=== PATIENT | female | born 1935 | race Caucasian/White ===

== ENCOUNTER 2023-06-02 00:20 | Inpatient (IN) | payer MEDICARE, BC, SELFPAY ==
[2023-06-02] VITALS (10 sets, daily range): BP systolic 112–131; BP diastolic 53–68; PULSE 61–76; RESP 14–19; TEMP 36.3–37.1; O2SAT 91–98; BMI 16.5; BMI 16.4
--- NOTE | ~2023-06-02 | XR_ITS ---
EXAMINATION: XR CHEST CLINICAL INFORMATION: Covid positive COMPARISON: None available. TECHNIQUE: Frontal view of the chest was obtained. FINDINGS: Left-sided pacemaker lead tips overlie the right atrium and right ventricle. The lungs are hyperinflated suggesting underlying COPD. No definite focal consolidation is seen, though evaluation in some regions is limited by overlying soft tissue shadow, including calcification of a presumed left breast implant. No evidence of pneumothorax, pleural effusion, or pulmonary edema. Cardiac size is within normal limits. Calcification is present at the aortic arch. No acute osseous findings are seen. XR/XR chest 1V IMPRESSION: Hyperinflated lungs suggesting COPD. No definite focal consolidation.
--- NOTE | 2023-06-02 00:24 | ECG_ITS ---
Test Reason : WEAKNESS Blood Pressure : / mmHG Vent. Rate : 064 BPM Atrial Rate : 064 BPM P-R Int : 178 ms QRS Dur : 152 ms QT Int : 458 ms P-R-T Axes : 091 -76 094 degrees QTc Int : 472 ms AV dual-paced rhythm Abnormal ECG No previous ECGs available Referred By: Rama Garcia Electronically Signed By:BG QUINTERO
--- NOTE | 2023-06-02 00:45 | ED_ITS ---
HPI - Weakness General Chief complaint: Weakness Stated complaint: Covid +/ weakness Time Seen by Provider: 06/02/23 00:23 Source: patient and EMS Mode of arrival: EMS History of Present Illness HPI Narrative: 88-year-old female is brought in by EMS for increasing weakness and shortness of breath after positive COVID exposure, development of symptoms approximately 3 days ago and tested positive on a home COVID test on . Patient does have a history of COPD but is not a current smoker, she also has breast CA and is on chronic anticoagulation (Xarelto 15 mg). Related Data Allergies Allergy/AdvReac Type Severity Reaction Status Date / Time Unable to Assess Allergy Verified 06/02/23 00:23 Review of Systems 2 Review of Systems: Pertinent positives and negatives as stated in HPI [facility] Past Medical History Source: nursing notes reviewed Social History Social History Advance Directives: No Advance Directives Information Provided: No Physical Exam 2 Vital Signs: Vital Signs: Last Vital Signs Temp 98.6 F 06/02/23 00:32 Pulse 76 06/02/23 01:31 Resp 14 06/02/23 01:31 BP 122/56 L 06/02/23 00:32 Pulse Ox 91 L 06/02/23 00:32 O2 Del Method Room Air 06/02/23 00:32 BMI result Body Mass Index 16.5 VITAL SIGNS: Reviewed. GENERAL: Cachectic, in no acute distress. HEAD: Normocephalic/atraumatic EYES: PERRLA, EOMI EARS: Ext canals without abnormality NOSE: Nares patent bilateral OROPHARYNX: no oral lesions noted, posterior pharynx clear NECK: Supple, no adenopathy LUNGS: Tachypnea, coarse rhonchi but otherwise no rales. SpO2<91> 2 L nasal cannula CARDIOVASCULAR: Regular rate and rhythm without noted murmurs, no JVD or lower extremity edema. ABDOMEN: Soft, non-tender, non-distended with bowel sounds. MUSCULOSKELETAL: No tenderness, deformities, or effusions noted on gross inspection. EXTREMITIES: No cyanosis, clubbing or edema. SKIN: Inspection of the skin reveals no rashes NEUROLOGIC: Alert and oriented x 4. Strength and sensation to light touch were grossly intact x 4. Medications Administered Discontinued Medications Generic Name Dose Route Start Last Admin Trade Name Freq PRN Reason Stop Dose Admin Albuterol Sulfate 2 puff 06/02/23 01:16 06/02/23 01:30 Albuterol Sulfate 90 Mcg 8 Gm Inhaler INHALE 06/02/23 01:17 2 puff ONCE ONE Administration Methylprednisolone Sodium Succinate 125 mg 06/02/23 00:45 06/02/23 01:14 Methylprednisolone Sod Succ 125 Mg/2 Ml Vial IVPUSH 06/02/23 00:46 125 mg ONCE ONE Administration Rivaroxaban 15 mg 06/02/23 00:46 06/02/23 01:48 Rivaroxaban 15 Mg Tablet PO 06/02/23 00:47 15 mg ONCE ONE Administration Medical Decision Making Medical Decision Making [facility] Narrative: 0045: 88-year-old female with history and clinical presentation, DDX: Viral syndrome, viral pneumonia, COVID-19 positive, COPD exacerbation. I reviewed all investigations and hematologic indices are negative for leukocytosis low there is a mild left shift and mildly elevated temperature for which patient had taken Tylenol at home prior to arrival, however this does not seem to be bacterial in nature at all, there was no identified infiltrate on chest x-ray and patient's serology is positive for COVID-19. Coagulation studies demonstrated PT of 33.7 and INR of 2.8 reflective of patient's use of Xarelto. VBG does not demonstrate any respiratory acidosis and no hypercapnia at this time. Chemistry studies a grossly within normal limits without electrolyte or liver enzyme abnormalities, there is no LYNDA. It is noted that the high sensitivity troponin is detectable and demonstrates mild elevation although there is no comparison and suspect that this is due to underlying illness. I will repeat the troponin level, patient has dual paced rhythm but no obvious evidence of ST elevation and no complaints chest pain. 1346: I discussed case with the hospitalist who accepts admission. My interpretation is patient has acute viral syndrome with respiratory failure likely contributing to underlying COPD, no evidence to suggest the need for antibiotics at this time. Patient received bronchodilators as well as steroids. Differential Diagnosis Differential Diagnoses: The differential diagnosis associated with the presentation includes Please see the discussion above Admission/Observation Consideration of admission/observation: Escalation of care including admission/observation considered Please see the discussion above Consult Healthcare Provider Management of the patient was discussed with: Hospitalist Please see the discussion above Lab Data [facility] Lab Attestation statement: I reviewed the patient's lab results. Please see the discussion above 06/02/23 00:48 06/02/23 00:48 Labs: Lab Results 06/02/23 06/02/23 Range/Units 00:48 00:57 WBC 8.3 (4.8-10.8) X10*3/uL RBC 4.36 (4.20-5.50) X10*6/uL Hgb 13.9 (12.0-16.0) g/dl Hct 41.4 (37.0-47.0) % MCV 95.0 (80.0-98.0) fL MCH 31.9 (27.0-33.0) pg MCHC 33.6 (31.0-35.0) g/dl RDW 13.9 (11.0-16.0) % Plt Count 142 L (160-400) X10*3/uL MPV 9.5 (9.4-12.3) fL Immature Gran % (Auto) 0.2 (0.0-0.4) % Neut % (Auto) 88.8 H (45-73) % Lymph % (Auto) 4.0 L (20-40) % [place] % (Auto) 6.6 (2-11) % Eos % (Auto) 0.0 (0-4) % Baso % (Auto) 0.4 (0-2) % Lymph # (Auto) 0.3 L (1.2-4.9) X10*3/uL [place] # (Auto) 0.6 (0.1-1.2) X10*3/uL Eos # (Auto) 0.0 (0.0-0.4) X10*3/uL Baso # (Auto) 0.0 (0.0-0.2) X10*3/uL Abs Immat Gran (auto) 0.02 (0.00-0.03) X10*3/uL Absolute Neuts (auto) 7.4 (2.0-8.3) x10*3/uL Absolute Nucleated RBC 0.000 (0.0-0.012) X10*3/uL Nucleated RBC % (auto) 0.0 (0.0-0.2) /100WBC PT 33.7 H (11.1-13.3) SEC INR 2.8 H (0.9-1.1) VBG pH 7.40 (7.32-7.43) VBG pCO2 47 mmHg VBG pO2 43 mmHg VBG HCO3 29 H (22-26) mmol/L VBG O2 Saturation 70.0 % VBG Base Excess 3.8 mmol/L Sodium 138 (135-145) mmol/L Potassium 3.9 (3.3-5.1) mmol/L Chloride 100 (96-108) mmol/L Carbon Dioxide 23 (22-29) mmol/L Anion Gap 19 (12-20) BUN 15 (9-16) mg/dL Creatinine 0.74 (0.5-1.4) mg/dL Estim Creat Clear Calc 37.9 Estimated GFR > 60 Random Glucose 108 (60-115) mg/dL Lactic Acid 1.1 (0.5-2.0) mmol/L Calcium 9.5 (8.4-10.2) mg/dL Total Bilirubin 0.5 (0.0-1.0) mg/dL AST 30 (5-31) U/L ALT 15 (0-31) U/L Alkaline Phosphatase 71 (39-117) U/L Troponin I High Sens 20.3 H (<3.5-17.0) ng/L Total Protein 6.9 (6.5-8.0) g/dL Albumin 4.2 (3.5-5.0) g/dL COVID-19 (BRANDO) Positive A (Negative) COVID-19 Clin Com See Note Influenza Type A (KM) Negative (Negative) Influenza Type B (KM) Negative (Negative) Influenza A & B Note See Note Independent Interpretation I performed an independent interpretation of an: EKG Interpretation: AV dual paced rhythm, HR-64, no STEMI, OR/QTC within normal limits. Radiology Impression Discussion of test interpretation with radiology: I have reviewed the radiologist's reading. Radiologist Impression: Please see the discussion above Chronic Conditions Patient?s care impacted by: Cancer COPD Critical Care Time Critical Care Time Critical Care Time: Yes Total Critical Care Time: 30 Attestation: I personally attest to this time spent taking care of the patient. Discharge Plan Discharge Clinical Impression: Acute respiratory failure, Viral syndrome, Pneumonia due to COVID-19 virus, Hypoxemia, COPD (chronic obstructive pulmonary disease) Patient Disposition: Admitted As Inpatient
[2023-06-02 00:57] LABS: MANUAL DIFF FLAG NO
[2023-06-02 00:59] LABS: Basophils Percent Auto 0.4 % (0-2); Hematocrit 41.4 % (37.0-47.0); Hemoglobin 13.9 g/dl (12.0-16.0); Imm Gran Abs Auto 0.02 X10*3/uL (0.00-0.03); Imm Gran Pct Auto 0.2 % (0.0-0.4); Lymphocytes Absolute Auto 0.3 X10*3/uL (1.2-4.9); Mean Corpuscular HGB Conc 33.6 g/dl (31.0-35.0); Mean Corpuscular Hemoglobin 31.9 pg (27.0-33.0); Mean Platelet Volume 9.5 fL (9.4-12.3); Monocytes Absolute Auto 0.6 X10*3/uL (0.1-1.2); Monocytes Percent Auto 6.6 % (2-11); Neutrophils Absolute Auto 7.4 x10*3/uL (2.0-8.3); Neutrophils Percent Auto 88.8 % (45-73); Platelet Count 142 X10*3/uL (160-400); Red Blood Count 4.36 X10*6/uL (4.20-5.50); Red Cell Distribution Width 13.9 % (11.0-16.0); White Blood Count 8.3 X10*3/uL (4.8-10.8)
[2023-06-02 01:04] LABS: VBG Base Excess 3.8 mmol/L; VBG HCO3 29 mmol/L (22-26); VBG pCO2 47 mmHg; VBG pO2 43 mmHg
[2023-06-02 01:10] LABS: INTERNATIONAL NORM RATIO 2.8 (0.9-1.1); Prothrombin Time 33.7 SEC (11.1-13.3)
[2023-06-02 01:13] LABS: Lactic Acid 1.1 mmol/L (0.5-2.0)
[2023-06-02] MEDS: methylPREDNISolone Sod Succ 125 MG/2 ML VIAL IVPUSH (01:14)
[2023-06-02 01:18] LABS: Alanine Aminotransferase 15 U/L (0-31); Albumin Level 4.2 g/dL (3.5-5.0); Alkaline Phosphatase 71 U/L (39-117); Anion Gap 19 (12-20); Aspartate Amino Transferase 30 U/L (5-31); Bilirubin Total 0.5 mg/dL (0.0-1.0); Blood Urea Nitrogen 15 mg/dL (9-16); Calcium 9.5 mg/dL (8.4-10.2); Carbon Dioxide 23 mmol/L (22-29); Chloride 100 mmol/L (96-108); Creatinine Clr Calc Pharmacy 37.9; Estimated Glomerular Filt Rate > 60; Glucose Random 108 mg/dL (60-115); Potassium 3.9 mmol/L (3.3-5.1); Sodium 138 mmol/L (135-145); Total Protein 6.9 g/dL (6.5-8.0)
[2023-06-02 01:19] LABS: Venous Blood Gas Refer to POC result
--- OUTSIDE RECORDS SUMMARY | 2023-06-02 01:20 | XMS_ITS | Continuity of Care Document ---
Author Name Unknown Organization [facility] Address [address] [place] [address]- Care Team Providers Care Life Coach Name Role Phone Jayesh HUGGINS, Dinh Jamil Primary Care Physician Encounter [facility] [place] Date(s): 05/29/22 - 06/28/22 [facility] [address] [place] [address]- [place] Allergies, Adverse Reactions, Alerts Substance Reaction Severity Status codeine Active penicillin Active Immunizations Given and Recorded Vaccine Date Status Refusal Reason SARS-CoV-2 (COVID-19) mRNA BNT-162b2 vac 06/01/21 Recorded SARS-CoV-2 (COVID-19) mRNA BNT-162b2 vac 11/08/20 Given SARS-CoV-2 (COVID-19) mRNA BNT-162b2 vac 10/18/20 Given influenza virus vaccine, inactivated 05/18/21 [place] rded influenza virus vaccine, inactivated 05/27/19 [place] rded influenza virus vaccine, inactivated 06/18/18 [place] rded influenza virus vaccine, inactivated 05/08/17 [place] rded Zoster Vaccine Live 05/11/05 Recorded pneumococcal 13-valent vaccine 05/11/01 Recorded Medications anastrozole 1 mg oral tablet 1 tablet = 1 mg, By Mouth, Daily, # 30 tablet, 0 Refills, Maintenance, 08/08/21 20:21:00 EST, Tablet, Partial fill upon patient request if the prescription is for a schedule II opioid drug. Start Date: 08/08/21 Status: Ordered atorvastatin 10 mg oral tablet 1 tablet = 10 mg, By Mouth, Daily, # 30 tablet, 0 Refills, Maintenance, 08/08/21 20:13:00 EST, Partial fill upon patient request if the prescription is for a schedule II opioid drug. Start Date: 08/08/21 Status: Ordered cefadroxil 500 mg oral capsule 1 capsule = 500 mg, By Mouth, Every 12 hours, # 28 capsule, 0 Refills, Maintenance, 08/10/21 11:03:00 EST, Capsule, Partial fill upon patient request if the prescription is for a schedule II opioid drug. Start Date: 08/10/21 Stop Date: 08/24/21 Status: Ordered levothyroxine 0.1 mg oral tablet 1 tablet = 100 mcg, By Mouth, Daily, # 30 tablet, 0 Refills, Maintenance, 08/08/21 20:14:00 EST, Tablet, Partial fill upon patient request if the prescription is for a schedule II opioid drug. Start Date: 08/08/21 Status: Ordered metoprolol 25 mg oral tablet 25 mg, 1, tablet, By Mouth, 2 times a day, Refills 0, Maintenance, 08/08/21 20:14:00 EST, Partial fill upon patient request if the prescription is for a schedule II opioid drug. Start Date: 08/08/21 Status: Ordered Xarelto 15 mg oral tablet 1 tablet = 15 mg, By Mouth, Daily in PM, # 30 tablet, 0 Refills, Maintenance, 08/08/21 20:14:00 EST, Tablet, Partial fill upon patient request if the prescription is for a schedule II opioid drug. Start Date: 08/08/21 Status: Ordered Problem List Condition Confirmation Course Effective Dates Status Health St at Informant Underweight Confirmed Active Patient Care team information Personnel Name: Jayesh HUGGINS , Dinh Jamil Address: Address: [address] [place] [address]-
--- OUTSIDE RECORDS SUMMARY | 2023-06-02 01:20 | XMS_ITS | Continuity of Care Document ---
Author Name Unknown Organization [facility] Address [address] [place] [phone]- Care Team Providers Care It Infrastructure Engineer Name Role Phone Jayesh HUGGINS, Dinh Jamil Primary Care Physician [phone] [place] [facility] [place] Date(s): 11/22/21 - 12/22/21 [facility] [address] [place] [address]- [place] Allergies, Adverse Reactions, Alerts Substance Reaction [...] Date: 08/08/21 Status: Ordered Problem List Condition Effective Dates Status Health Status Inform ant Underweight(Confirmed) Active
--- OUTSIDE RECORDS SUMMARY | 2023-06-02 01:20 | XMS_ITS | Continuity of Care Document ---
Author Name Unknown Organization [facility] Address [address] [place] [address]- Care Team Providers Care Set Painter Name Role Phone Jayesh HUGGINS, Dinh Jamil Primary Care Physician Encounter [facility] [place] ACCT R [id number] Date(s): 08/11/21 - 09/24/21 [facility] [address] [place] [address]- Attending Physician: John Hernandez Admitting Physician: John Hernandez Allergies, Adverse Reactions, Alerts Substance Reaction Severity [...]
--- OUTSIDE RECORDS SUMMARY | 2023-06-02 01:20 | XMS_ITS | Continuity of Care Document ---
Author Name Unknown Organization [facility] Address [address] [place] [address]- Care Team Providers Care General Production Manager Name Role Phone Jayesh HUGGINS, Dinh Jamil Primary Care Physician [phone] [place] [facility] [place] - 10/15/22 [facility] [address] [place] [address]- [place] Allergies, Adverse Reactions, Alerts Substance Reaction [...] Confirmation Course Effective Dates Status Health St atus Informant Underweight Confirmed Active Patient Care team information Care Team Personnel Name: Jayesh HUGGINS , Dinh Jamil Position: S Outreach Member Role: PCP Address: Address: [address] [place] [address]- Care Team Related Persons Name: AGAPITO LOPEZ
--- OUTSIDE RECORDS SUMMARY | 2023-06-02 01:20 | XMS_ITS | Continuity of Care Document ---
Author Name Unknown Organization [facility] Address [address] [place] [address]- Care Team Providers Care Run Lead Name Role Phone Jayesh HUGGINS, Dinh Jamil Primary Care Physician Encounter [facility] [place] Date(s): 08/08/21 - 08/10/[address] [address]- Discharge Disposition: A-D/C Home Attending Physician: Prabhjot Morales DO Admitting Physician: Lissa Link DO Referring Physician: Not on Staff, Referring MD Allergies, Adverse Reactions, Alerts Substance Reaction Severity [...] Recorded pneumococcal 13-valent vaccine 05/11/01 Recorded Medications Acetaminophen Tablet 650 mg, Tablet, By Mouth, Every 4 hours, PRN for Pain , Mild, Temperature Greater than 100.5, Routine, 08/08/21 20:45:00 EST Start Date: 08/08/21 Stop Date: 08/10/21 Status: Discontinued anastrozole 1 mg oral tablet 1 tablet = 1 mg, By Mouth, Daily, # 30 tablet, 0 Refills, Maintenance, 12/06/21 20:21:00 EST, Tablet, Partial fill upon patient [...] 08/08/21 Status: Ordered metoprolol 25 mg oral tablet, extended release 25 mg, XL Tablet, By Mouth, 08/10/21 9:00:00 EST Start Date: 08/10/21 Stop Date: 08/10/21 Status: Completed Xarelto 15 mg oral tablet 1 tablet = 15 mg, By Mouth, Daily in PM, # 30 tablet, 0 Refills, Maintenance, 08/08/21 20:14:00 EST, Tablet, Partial fill upon patient request if the prescription is for a schedule II opioid drug. Start Date: 08/08/21 Status: Ordered Problem List Condition Effective Dates Status Health Status Inform ant Underweight(Confirmed) Active Results Radiology Reports * Exam Date Time Procedure Performing Provider Status 08/09/21 10:53 AM Chest Portable Terrence Ch (Verified) Notes: (Chest Portable) Reason For Exam: ppm;Line Placement RESULT: Chest Portable Chest Portable INDICATION: Line Placement; ppm. COMPARISON: None. FINDINGS: LINES AND TUBES: Dual-lead left subclavian pacer/AICD wires are intact. Mild tortuous course of the ventricular lead. LUNGS AND PLEURA: Lungs are partially obscured by breast implants. Large lung volumes with flattening of the diaphragms suggestive of air trapping/COPD changes. No focal opacity within limits of the study. No pleural effusion. No pneumothorax. HEART, MEDIASTINUM AND ADAMS: Heart is normal in size. Aortic calcifications. BONES AND SOFT TISSUES: Degenerative changes of the upper lumbar spine. Bilateral breast implants with capsular calcifications most pronounced on on the left. IMPRESSION: Status post dual-lead pacemaker. Mild tortuous course of the ventricular lead. No pneumothorax or pleural effusion. I have personally reviewed the images and I agree with this report. WSN: [id number] Ordering Physician: Robert Lou Dictated By: Paola Schwartz MD Dictated Date/Time: 08/09/21 11:49 a Reviewed By: Ellis Borja MD Signed By: Ellis Borja MD Signed Date/Time: 08/09/21 11:54 am Transcribed By: RUTHANN Transcribed Date/Time: 08/09/21 11:46 am Vital Signs Most recent to oldest [Reference Range]: 1 2 3 Height 165 cm (08/10/21 8:28 AM) 165 cm (08/09/21 6:47 PM) 165 cm (08/09/21 3:19 PM) Weight 41.5 kg (08/10/21 4:20 AM) 46.3 kg (08/09/21 3:24 AM) 46.5 kg (08/08/21 7:44 PM) Oxygen Saturation [94-100 %] 93 % *L* (08/10/21 8:28 AM) 97 % (08/10/21 2:00 AM) 93 % *L* (08/09/21 8:00 PM) Pulse Rate [55-90 bpm] 60 bpm (08/10/21 8:28 AM) 60 bpm (08/10/21 8:19 AM) 66 bpm (08/10/21 2:00 AM) Body Mass Index [18.5-24.99] 17.01 *L* (08/09/21 3:24 AM) 17.08 *L* (08/08/21 7:44 PM) Blood Pressure [90-138/55-84 mm Hg] 126/73mm Hg (08/10/21 8:28 AM) 126/73mm Hg (08/10/21 8:19 AM) 127/69mm Hg (08/10/21 2:00 AM) Respiratory Rate [16-30 br/min] 17 br/min (08/10/21 8:28 AM) 20 br/min (08/10/21 2:00 AM) 18 br/min (08/09/21 10:26 PM) Temperature [96.8-100.4 DegF] 97.5 DegF (08/10/21 8:28 AM) 97.5 DegF (08/10/21 2:00 AM) 98.1 DegF (08/09/21 8:00 PM) Mode of Delivery (Oxygen) Room air (08/10/21 8:28 AM) Room air (08/10/21 2:00 AM) Room air (08/09/21 8:00 PM) Blood pressure sites Arm, right (08/10/21 8:28 AM) Arm, right (08/10/21 2:00 AM) Arm, right (08/09/21 8:00 PM) Temperature Route Oral (08/10/21 8:28 AM) Oral (08/10/21 2:00 AM) Oral (08/09/21 8:00 PM) Dry Weight 46.5 kg (08/08/21 7:44 PM) Weight Obtained Via Bed scale (08/10/21 4:20 AM) Bed scale (08/09/21 3:24 AM)
--- OUTSIDE RECORDS SUMMARY | 2023-06-02 01:20 | XMS_ITS | Continuity of Care Document ---
Author Name Unknown Organization [facility] Address [address] [place] [address]- Care Team Providers Care Bus Aide Name Role Phone Jayesh HUGGINS, Dinh Jamil Primary Care Physician [phone] Encounter [facility] [place] Date(s): 11/10/21 - 12/10/21 [facility] [address] [place] [address]- Attending Physician: Cesar Watson Admitting Physician: Cesar Watson Referring Physician: AdmtrCesar Allergies, Adverse Reactions, Alerts Substance Reaction Severity [...]
--- OUTSIDE RECORDS SUMMARY | 2023-06-02 01:20 | XMS_ITS | Continuity of Care Document ---
Author Name Unknown Organization [facility] Address [address] [place] [address]- Care Team Providers Care Prior Authorization Technician Name Role Phone Jayesh HUGGINS, Dinh Jamil Primary Care Physician [place] [facility] [place] Date(s): 12/15/22 - 01/14/23 [facility] [address] [place] [address]- [place] Allergies, Adverse Reactions, Alerts Substance Reaction [...] S Outreach Member Role: PCP Address: Address: [address] [place] [address]- Care Team Related Persons Name: AGAPITO LOPEZ
--- OUTSIDE RECORDS SUMMARY | 2023-06-02 01:20 | XMS_ITS | Continuity of Care Document ---
Author Name Unknown Organization [facility] Address [address] [place] [address]- Care Team Providers Care Optomechanical Engineer Name Role Phone Jayesh HUGGINS, Dinh Jamil Primary Care Physician En[place] [facility] [place] Date(s): 09/15/22 - 10/15/22 [facility] [address] [place] [address]- Attending Physician: Cesar Watson Admitting Physician: Admtr, Ar8 Referring Physician: Admtr, Ar8 Allergies, Adverse Reactions, Alerts Substance Reaction Severity [...] Care team information Care Team Personnel Name: Dinh Mcconnell MD Position: S Outreach Member Role: PCP Address: Address: [address] [place] [address]- Care Team Related Persons Name: AGAPITO LOPEZ
--- OUTSIDE RECORDS SUMMARY | 2023-06-02 01:20 | XMS_ITS | Continuity of Care Document ---
Author Name Unknown Organization [facility] Address [address] [place] [address]- Care Team Providers Care Ict Business Development Manager Name Role Phone Jayesh HUGGINS, Dinh Jamil Primary Care Physician [phone] [place] [facility] [place] [id number] Date(s): 05/04/22 - 06/03/22 [facility] [address] [place] [address]- Attending Physician: Cesar Watson Admitting Physician: Cesar Watson Referring Physician: Admtr, Ar8 Allergies, Adverse Reactions, [...] Jayesh HUGGINS , Dinh Jamil Address: Address: [address] [place] [address]
--- OUTSIDE RECORDS SUMMARY | 2023-06-02 01:20 | XMS_ITS | Continuity of Care Document ---
Author Name Unknown Organization [facility] Address [address] [place] [address]- Care Team Providers Care Seed Laboratory Assistant Name Role Phone Dinh Mcconnell MD Primary Care Physician Encounter [facility] [place] Date(s): 09/01/21 - 12/08/21 [facility] [address] [place] [address]- Attending Physician: Zeb Burnett MD Admitting Physician: Zeb Burnett MD Referring Physician: Dinh Mcconnell MD Allergies, Adverse Reactions, Alerts Substance Reaction [...]
--- OUTSIDE RECORDS SUMMARY | 2023-06-02 01:20 | XMS_ITS | Continuity of Care Document ---
Author Name Unknown Organization [facility] Address [address] [place], [place] [address]- Care Team Providers Care Post Tronic Machine Operator Name Role Phone Jayesh HUGGINS, Dinh Jamil Primary Care Physician Encounter [facility] [place] ACCT R [id number] Date(s): 12/23/22 - 04/22/23 [facility] [address] [place] [address]- Attending Physician: Zeb Burnett MD Admitting Physician: [...] S Outreach Member Role: PCP Address: Address: [address] [place] [address]- Care Team Related Persons Name: AGAPITO LOPEZ
--- OUTSIDE RECORDS SUMMARY | 2023-06-02 01:20 | XMS_ITS | Continuity of Care Document ---
Author Name Unknown Organization [facility] Address [address] [place] [address]- Care Team Providers Care Branch Service Representative Name Role Phone Jayesh HUGGINS, Dinh Jamil Primary Care Physician Encounter [facility] [place] ACCT R [id number] Date(s): 03/16/22 - 07/02/22 [facility] [address] [place] [address]- Attending Physician: Zeb Burnett MD Admitting Physician: [...] Jayesh HUGGINS , Dinh Jamil Address: Address: [address] [place] [address]
--- OUTSIDE RECORDS SUMMARY | 2023-06-02 01:20 | XMS_ITS | Continuity of Care Document ---
Author Name Unknown Organization [facility] Address [address] [place] [address]- Care Team Providers Care Animation Camera Operator Name Role Phone Jayesh HUGGINS, Dinh Jamil Primary Care Physician [place] [facility] [place] - 10/06/21 [facility] [address] [place] [address]- [place] Allergies, Adverse Reactions, Alerts Substance Reaction [...]
--- OUTSIDE RECORDS SUMMARY | 2023-06-02 01:20 | XMS_ITS | Continuity of Care Document ---
Author Name Unknown Organization [facility] Address [address] [place] [address]- Care Team Providers Care Cigar Making Machine Operator Name Role Phone Jayesh HUGGINS, Dinh Jamil Primary Care Physician [place] [facility] [place]s): 03/21/22 - 04/20/22 [facility] [address] [place] [address]- [place] Allergies, Adverse Reactions, Alerts Substance Reaction [...]
[2023-06-02 01:23] LABS: COVID-19 Test Positive (Negative); IDNOW Serial# 08D9AD1C; IDNOW Serial# BCCEAD1C; Influenza A Negative (Negative); Influenza B2 Negative (Negative); Troponin-I High Sensitivity 20.3 ng/L (<3.5-17.0)
[2023-06-02] MEDS: Albuterol Sulfate 90 MCG 8 GM INHALER 2 PUFF INHALE (01:30)
[2023-06-02] MEDS: Rivaroxaban 15 MG TABLET PO (01:48)
[2023-06-02 02:30] LABS: Troponin-I High Sensitivity 22.1 ng/L (<3.5-17.0)
[2023-06-02 03:31] LABS: Appearance Urine Clear; Color Urine Yellow; Glucose Urine UA Negative (Negative); Leukocyte Esterase Urine Trace (Negative); Nitrite Urine Positive (Negative); PH 5.5 (5.0-9.0); Specific Gravity - Urine 1.015 (1.005-1.025); UMIC TRIGGER UACC YES; Urine Blood Trace (Negative); Urine Ketones Trace mg/dL (Negative); Urine Protein Trace mg/dL (Neg-Trace)
[2023-06-02 03:47] LABS: Bacteria Urine 4+ (None Seen); Calcium Oxalate Crystals Urine Present; Hyaline Casts Urine 0-2 /LPF (0-2); UACC Culture Trigger YES; WBC Urine 0-5 /HPF (0-5)
--- NOTE | 2023-06-02 06:30 | P.HPHOSP_ITS ---
History of Present Illness Date of Service: 06/02/23 Chief Complaint: Shortness of breath This an 88-year-old female past medical history of COPD the hospital with complaints of shortness of breath. Patient reports that she tested positive for COVID about 3 days ago, worsening symptoms since. She has increased cough sputum production, and dyspnea. Patient reports no fever, chills, no abdominal pain nausea vomiting, no diarrhea constipation, no chest pain. No palpitations. No headache or change in vision. Patient was found to be hypoxic per EMS although unclear how low, with placed on 2 L of oxygen currently satting 94%. Labs reviewed unremarkable COVID-19 positive Chest x-ray shows no focal consolidation Review of Systems 2 Review of Systems: Yes all other systems are reviewed and are negative [facility] Medical History History of COPD Surgical History (Updated 06/02/23 @ 06:33 by Naima Walker MD) No pertinent past surgical history Social History Household Members: Family Housing: House Patient Tobacco Use Status: Never used Tobacco Smoked in Last 30 Days: No Use of substances other than those prescribed or required for medical reasons: No Have you been hit, kicked, punched, or otherwise hurt by someone within the past year? If so, by whom?: No Do you feel safe in your current relationship?: Yes Is there a partner from a previous relationship who is making you feel unsafe now?: No Are you made to feel afraid or neglected: No Advance Directives: No Advance Directives Information Provided: No Do you have thoughts of harming others: None Do you have a plan to hurt others: No Plan Recently lost weight without trying: Yes How much weight loss: 2-13 pounds Patient : No Meds Allergies Allergy/AdvReac Type Severity Reaction Status Date / Time Unable to Assess Allergy Verified 06/02/23 00:23 Active Medications: Current Medications Acetaminophen (Acetaminophen 325 Mg Tablet) 650 mg PO Q6H PRN PRN Reason: Pain, Mild (Pain Scale 1-3) Albuterol/Ipratropium (Albuterol/Iprat 2.5/0.5mg 3 Ml Ampul.Neb) 3 ml INHALE RQ4H PRN PRN Reason: Shortness of Breath/Wheezing Albuterol/Ipratropium (Albuterol/Iprat 2.5/0.5mg 3 Ml Ampul.Neb) 3 ml INHALE RQ4H WHILE AWAKE ON LICENSE OF [facility] Dexamethasone Sodium Phosphate (Dexamethasone Sod Phosphate 4 Mg/Ml Vial) 6 mg IVPUSH DAILY ON LICENSE OF [facility] Enoxaparin Sodium (Enoxaparin Sodium 40 Mg/0.4 Ml Syringe) 40 mg SUBCUT Q24H UBALDO Ondansetron HCl (Ondansetron Hcl 4 Mg/2 Ml Vial) 4 mg IVPUSH Q8H PRN PRN Reason: Nausea and Vomiting Sodium Chloride (0.9 % Sodium Chloride Flush 3 Ml Syringe) 3 ml IVFLUSH QSHIFT ON LICENSE OF [facility] Physical Exam 2 Vital Signs and Narrative: Vital Signs: Last Vital Signs Temp 98.7 F 06/02/23 04:00 Pulse 61 06/02/23 04:00 Resp 16 06/02/23 04:00 BP 120/60 06/02/23 04:00 Pulse Ox 97 06/02/23 04:00 O2 Del Method Room Air 06/02/23 04:00 O2 Flow Rate 2 06/02/23 02:04 BMI result Body Mass Index 16.4 Const: General: cooperative and no acute distress O rientation/consciousness: patient oriented x3 Eyes: General: appearance normal, both eyes and all related structures Resp: Other: Significant bilateral wheezing and decreased breath sounds Effort & Inspection: normal respiratory effort Cardio: Rate: regular rate Rhythm: regular rhythm GI: Palpation (GI): Soft to palpation Auscultation: normal bowel sounds Skin: General skin exam: no rashes or lesions noted Neuro: General: patient oriented x3 Cognition (Neuro): normal cognition Extrem: General: Yes normal to inspection and Yes no pedal edema Results Labs 06/02/23 00:48 06/02/23 00:48 Labs: Laboratory Results - last 24 hr 06/02/23 06/02/23 06/02/23 00:48 00:52 00:57 MCV 95.0 MCH 31.9 MCHC 33.6 RDW 13.9 Plt Count 142 L MPV 9.5 Immature Gran % (Auto) 0.2 Neut % (Auto) 88.8 H Lymph % (Auto) 4.0 L [place] % (Auto) 6.6 Eos % (Auto) 0.0 Baso % (Auto) 0.4 Lymph # (Auto) 0.3 L [place] # (Auto) 0.6 Eos # (Auto) 0.0 Baso # (Auto) 0.0 Abs Immat Gran (auto) 0.02 Absolute Neuts (auto) 7.4 Absolute Nucleated RBC 0.000 Nucleated RBC % (auto) 0.0 PT 33.7 H INR 2.8 H VBG pH 7.40 VBG pCO2 47 VBG pO2 43 VBG HCO3 29 H VBG O2 Saturation 70.0 VBG Base Excess 3.8 Anion Gap 19 Estim Creat Clear Calc 37.9 Estimated GFR > 60 Random Glucose 108 Lactic Acid 1.1 Calcium 9.5 Total Bilirubin 0.5 AST 30 ALT 15 Alkaline Phosphatase 71 Total Protein 6.9 Albumin 4.2 Urine Color Yellow Urine Appearance Clear Urine pH 5.5 Ur Specific [place] 1.015 Urine Protein Trace Urine Glucose (UA) Negative Urine Ketones Trace Urine Blood Trace H Urine Nitrite Positive H Ur Leukocyte Esterase Trace H Urine RBC 3-5 H Urine WBC 0-5 Ur Squamous Epith Cells 3-5 Calcium Oxalate Crystal Present Urine Bacteria 4+ Hyaline Casts 0-2 COVID-19 (BRANDO) Positive A COVID-19 Clin Com See Note Influenza Type A (KM) Negative Influenza Type B (KM) Negative Influenza A & B Note See Note Imaging Radiologist's Impressions: Impressions Chest X-Ray 06/02/23 01:30 IMPRESSION: Hyperinflated lungs suggesting COPD. No definite focal consolidation. Assessment and Plan (1) COVID-19: Status: Acute (2) Viral syndrome: Status: Acute (3) COPD with acute exacerbation: Status: Acute Plan This is an 88-year-old female past medical history of COPD comes into the hospital with complaints of shortness of breath after being tested positive for COVID 3 days prior to presentation # acute hypoxic respiratory failure - according to EMS patient was found to be hypoxic although unclear with the level. - patient currently on 2 L of oxygen satting mid 90s - continue O2 as required, wean off with a goal of 90 to 92% # acute COPD exacerbation - in the setting of COVID infection - will treat with steroids, DuoNeb p.r.n. as well as scheduled DVT prophylaxis: Lovenox Given patient's need for closer monitoring patient require minimum 2 nights inpatient hospital stay for further management monitoring Time Spent With Patient Time: Total time managing care of this patient today ____ minutes. Quality Stroke Does the patient have a stroke diagnosis?: No VTE Prior VTE?: No VTE Risk Level:: Medical - moderate - high VTE Device Contraindication: Treatment Not Indicated VTE Drug Contraindication: N/A - Med Ordered
[2023-06-02 06:44] LABS: Alanine Aminotransferase 14 U/L (0-31); Albumin Level 3.9 g/dL (3.5-5.0); Alkaline Phosphatase 63 U/L (39-117); Anion Gap 16 (12-20); Aspartate Amino Transferase 29 U/L (5-31); Bilirubin Total 0.4 mg/dL (0.0-1.0); Blood Urea Nitrogen 13 mg/dL (9-16); Calcium 8.9 mg/dL (8.4-10.2); Carbon Dioxide 22 mmol/L (22-29); Chloride 104 mmol/L (96-108); Creatinine Clr Calc Pharmacy 44.5; Estimated Glomerular Filt Rate > 60; Glucose Random 120 mg/dL (60-115); Potassium 4.2 mmol/L (3.3-5.1); Sodium 138 mmol/L (135-145); Total Protein 6.4 g/dL (6.5-8.0)
[2023-06-02] MEDS: Albuterol/Iprat 2.5/0.5MG 3 ML AMPUL.NEB INHALE (08:18)
--- NOTE | 2023-06-02 08:41 | P.PNIM_ITS ---
Subjective Subjective Date of Service: 06/02/23 Interval History: weakness, no sob Physical Exam 2 Vital Signs: Vital Signs: Last Vital Signs Temp 98.5 F 06/02/23 08:00 Pulse 64 06/02/23 08:20 Resp 18 06/02/23 08:20 BP 124/68 06/02/23 08:00 Pulse Ox 93 06/02/23 08:00 O2 Del Method Room Air 06/02/23 08:00 O2 Flow Rate 2 06/02/23 02:04 BMI result Body Mass Index 16.4 General: AO X 3, no acute distress Resp: diminished bilateral, no accessory muscles used CVS: S1,S2,RRR GI: soft, non tender, non distended Neuro: motor grossly intact, alert Psych: appropriate affect, appropriate insight Objective Data Active Medications Acetaminophen (Acetaminophen 325 Mg Tablet) 650 mg PO Q6H PRN PRN Reason: Pain, Mild (Pain Scale 1-3) Albuterol/Ipratropium (Albuterol/Iprat 2.5/0.5mg 3 Ml Ampul.Neb) 3 ml INHALE RQ4H PRN PRN Reason: Shortness of Breath/Wheezing Atorvastatin Calcium (Atorvastatin Calcium 10 Mg Tablet) 10 mg PO BEDTIME [facility] Levothyroxine Sodium (Levothyroxine Sodium 88 Mcg Tablet) 88 mcg PO DAILY@0600 [facility] Metoprolol Succinate (Metoprolol Succinate Er 25 Mg Tab.Er.24h) 25 mg PO DAILY [facility]; Protocol Ondansetron HCl (Ondansetron Hcl 4 Mg/2 Ml Vial) 4 mg IVPUSH Q8H PRN PRN Reason: Nausea and Vomiting Rivaroxaban (Rivaroxaban 15 Mg Tablet) 15 mg PO DAILY [facility] Sodium Chloride (0.9 % Sodium Chloride Flush 3 Ml Syringe) 3 ml IVFLUSH QSHIFT [facility] Labs 06/02/23 00:48 06/02/23 06:10 Labs: Laboratory Results - last 24 hr 06/02/23 06/02/23 06/02/23 00:48 00:52 00:57 MCV 95.0 MCH 31.9 MCHC 33.6 RDW 13.9 Plt Count 142 L MPV 9.5 Immature Gran % (Auto) 0.2 Neut % (Auto) 88.8 H Lymph % (Auto) 4.0 L [place] % (Auto) 6.6 Eos % (Auto) 0.0 Baso % (Auto) 0.4 Lymph # (Auto) 0.3 L [place] # (Auto) 0.6 Eos # (Auto) 0.0 Baso # (Auto) 0.0 Abs Immat Gran (auto) 0.02 Absolute Neuts (auto) 7.4 Absolute Nucleated RBC 0.000 Nucleated RBC % (auto) 0.0 Hold Purple Top PT 33.7 H INR 2.8 H VBG pH 7.40 VBG pCO2 47 VBG pO2 43 VBG HCO3 29 H VBG O2 Saturation 70.0 VBG Base Excess 3.8 Anion Gap 19 Estim Creat Clear Calc 37.9 Estimated GFR > 60 Random Glucose 108 Lactic Acid 1.1 Calcium 9.5 Total Bilirubin 0.5 AST 30 ALT 15 Alkaline Phosphatase 71 Total Protein 6.9 Albumin 4.2 Urine Color Yellow Urine Appearance Clear Urine pH 5.5 Ur Specific [place] 1.015 Urine Protein Trace Urine Glucose (UA) Negative Urine Ketones Trace Urine Blood Trace H Urine Nitrite Positive H Ur Leukocyte Esterase Trace H Urine RBC 3-5 H Urine WBC 0-5 Ur Squamous Epith Cells 3-5 Calcium Oxalate Crystal Present Urine Bacteria 4+ Hyaline Casts 0-2 COVID-19 (BRANDO) Positive A COVID-19 Clin Com See Note Influenza Type A (KM) Negative Influenza Type B (KM) Negative Influenza A & B Note See Note 06/02/23 06:10 MCV MCH MCHC RDW Plt Count MPV Immature Gran % (Auto) Neut % (Auto) Lymph % (Auto) [place] % (Auto) Eos % (Auto) Baso % (Auto) Lymph # (Auto) [place] # (Auto) Eos # (Auto) Baso # (Auto) Abs Immat Gran (auto) Absolute Neuts (auto) Absolute Nucleated RBC Nucleated RBC % (auto) Hold Purple Top SEE NOTE PT INR VBG pH VBG pCO2 VBG pO2 VBG HCO3 VBG O2 Saturation VBG Base Excess Anion Gap 16 Estim Creat Clear Calc 44.5 Estimated GFR > 60 Random Glucose 120 H Lactic Acid Calcium 8.9 D Total Bilirubin 0.4 AST 29 ALT 14 Alkaline Phosphatase 63 Total Protein 6.4 L Albumin 3.9 Urine Color Urine Appearance Urine pH Ur Specific [place] Urine Protein Urine Glucose (UA) Urine Ketones Urine Blood Urine Nitrite Ur Leukocyte Esterase Urine RBC Urine WBC Ur Squamous Epith Cells Calcium Oxalate Crystal Urine Bacteria Hyaline Casts COVID-19 (BRANDO) COVID-19 Clin Com Influenza Type A (KM) Influenza Type B (KM) Influenza A & B Note Assessment and Plan (1) Paroxysmal atrial fibrillation: Status: Acute Plan 88F PMH COPD, complete heart block s/p pacer, paroxysmal afib, presented with weakness due to covid, hypoxic with ems weakness due to covid copmlicated by COPD with acute decompensation briefly hypoxic per EMS, now on room air changed iv decadron to po prednisone, albuterol inhaler prn pt eval monitor o2 sats paroxysmal atrial fibrillation toprol, xarelto history of complete heart block pacer mild protein calorie malnutrition encourage po intake dvt prophylaxis - on xarelto DNR/DNI reason for continued hospitalization:monitoring for hypoxia, pt eval pending Time Spent With Patient Time: Total time managing care of this patient today ____ minutes. Quality Stroke Does the patient have a stroke diagnosis?: No VTE Prior VTE?: No VTE Risk Level:: Medical - moderate - high VTE Device Contraindication: Treatment Not Indicated VTE Drug Contraindication: N/A - Med Ordered
[2023-06-02] MEDS: 0.9 % Sodium Chloride Flush 3 ML SYRINGE IVFLUSH ×3 (09:53→20:26)
--- NOTE | 2023-06-02 11:07 | PHA.MEDREC ---
Pharmacy Consult ? Medication Reconciliation Pharmacy has completed the medication reconciliation. spoke with patient to confirm medications. Famotidine was in her claim history and patient was unable to recognize it. Confirmed with patients daughter over the phone that she is currently not taking it and has not started the prescription.
[2023-06-02] MEDS: predniSONE 20 MG TABLET 40 MG PO (11:33)
[2023-06-02] MEDS: Metoprolol Succinate ER 25 MG TAB.ER.24H PO (11:33)
[2023-06-02] MEDS: 0.9 % Sodium Chloride 1,000 ML 50 ML IVCONT (12:40)
--- NOTE | 2023-06-02 13:24 | MHC.CM.PN ---
IMM 06/02/23 Patient is independent with all functional mobility. She lives with family. She states that she will arrange for a family member to provide transport at discharge. She is not interested in home services at this time. DP home self care family transport.
[2023-06-02] MEDS: Remdesivir 200 MG in 0.9 % Sodium Chloride 210 ML 105 MG IV (14:50)
[2023-06-02] MEDS: Acetaminophen 325 MG TABLET 650 MG PO (17:16)
[2023-06-02] MEDS: Atorvastatin Calcium 10 MG TABLET PO (20:26)
[2023-06-02] MEDS: Melatonin 3 MG TABLET PO (20:26)
[2023-06-02] MEDS: traZODone HCL 50 MG TABLET PO (23:03)
[2023-06-03 04:00] VITALS: BP 148/79; PULSE 61; RESP 18; TEMP 36.5; O2SAT 92
[2023-06-03] MEDS: Levothyroxine Sodium 88 MCG TABLET PO (05:16)
[2023-06-03 06:19] LABS: Hematocrit 39.5 % (37.0-47.0); Hemoglobin 13.4 g/dl (12.0-16.0); Mean Corpuscular HGB Conc 33.9 g/dl (31.0-35.0); Mean Corpuscular Hemoglobin 31.9 pg (27.0-33.0); Mean Platelet Volume 9.7 fL (9.4-12.3); Platelet Count 156 X10*3/uL (160-400); Red Cell Distribution Width 13.9 % (11.0-16.0); White Blood Count 9.8 X10*3/uL (4.8-10.8)
[2023-06-03 06:39] LABS: Anion Gap 14 (12-20); Blood Urea Nitrogen 16 mg/dL (9-16); Calcium 9.2 mg/dL (8.4-10.2); Carbon Dioxide 25 mmol/L (22-29); Chloride 104 mmol/L (96-108); Creatinine Clr Calc Pharmacy 45.1; Estimated Glomerular Filt Rate > 60; Glucose Fasting 94 mg/dL (60-99); Potassium 3.8 mmol/L (3.3-5.1); Sodium 139 mmol/L (135-145)
[2023-06-03 08:00] VITALS: BP 167/72; PULSE 70; RESP 18; TEMP 36.6; O2SAT 91
[2023-06-03] MEDS: Rivaroxaban 15 MG TABLET PO (08:20)
[2023-06-03] MEDS: Metoprolol Succinate ER 25 MG TAB.ER.24H PO (08:20)
[2023-06-03] MEDS: predniSONE 20 MG TABLET 40 MG PO (08:20)
--- NOTE | 2023-06-03 08:51 | HO.PM.IMPN ---
Subjective Subjective Date of Service: 06/03/23 Interval History: insomnia Physical Exam Vital Signs: Vital Signs: Last Vital Signs Temp 97.8 F 06/03/23 08:00 Pulse 70 06/03/23 08:00 Resp 18 06/03/23 08:00 BP 167/72 H 06/03/23 08:00 Pulse Ox 91 L 06/03/23 08:00 O2 Del Method Room Air 06/03/23 08:00 O2 Flow Rate 2 06/02/23 02:04 BMI result Body Mass Index 16.4 General: AO X 3, no acute distress Resp: diminished bilateral, no accessory muscles used CVS: S1,S2,RRR GI: soft, non tender, non distended Neuro: motor grossly intact, alert Psych: appropriate affect, appropriate insight Objective Data Active Medications Acetaminophen (Acetaminophen 325 Mg Tablet) 650 mg PO Q6H PRN PRN Reason: Pain, Mild (Pain Scale 1-3) Last Admin: 06/02/23 17:16 Dose: 650 mg Documented By: INOCENCIA Albuterol Sulfate (Albuterol Sulfate 90 Mcg 8 Gm Inhaler) 2 puff INHALE RQ4H PRN PRN Reason: sob Albuterol/Ipratropium (Albuterol/Iprat 2.5/0.5mg 3 Ml Ampul.Neb) 3 ml INHALE RQ4H PRN PRN Reason: Shortness of Breath/Wheezing Anastrozole (Anastrozole 1 Mg Tablet) 1 mg PO DAILY [facility] Atorvastatin Calcium (Atorvastatin Calcium 10 Mg Tablet) 10 mg PO BEDTIME [facility] Last Admin: 06/02/23 20:26 Dose: 10 mg Documented By: KAY Sodium Chloride (Ns) 1,000 mls @ 50 mls/hr IVCONT .Q20H [facility] Last Infusion: 06/02/23 16:50 Dose: 50 mls/hr Documented By: INOCENCIA Remdesivir 100 mg/ Sodium (Chloride) 230 mls @ 115 mls/hr IV Q24H [facility] Stop: 06/04/23 14:59 Levothyroxine Sodium (Levothyroxine Sodium 88 Mcg Tablet) 88 mcg PO DAILY@0600 [facility] Last Admin: 06/03/23 05:16 Dose: 88 mcg Documented By: KAY Melatonin (Melatonin 3 Mg Tablet) 3 mg PO BEDTIME [facility] Last Admin: 06/02/23 20:26 Dose: 3 mg Documented By: KAY Metoprolol Succinate (Metoprolol Succinate Er 25 Mg Tab.Er.24h) 25 mg PO DAILY [facility]; Protocol Last Admin: 06/03/23 08:20 Dose: 25 mg Documented By: INOCENCIA Pt Own Medication ( Cefadroxil 500 Mg Capsule) 500 mg PO BID [facility] Last Admin: 06/03/23 08:20 Dose: 500 mg Documented By: INOCENCIA Ondansetron HCl (Ondansetron Hcl 4 Mg/2 Ml Vial) 4 mg IVPUSH Q8H PRN PRN Reason: Nausea and Vomiting Prednisone (Prednisone 20 Mg Tablet) 40 mg PO DAILY [facility] Last Admin: 06/03/23 08:20 Dose: 40 mg Documented By: INOCENCIA Rivaroxaban (Rivaroxaban 15 Mg Tablet) 15 mg PO DAILY [facility] Last Admin: 06/03/23 08:20 Dose: 15 mg Documented By: INOCENCIA Sodium Chloride (0.9 % Sodium Chloride Flush 3 Ml Syringe) 3 ml IVFLUSH QSHIFT [facility] Last Admin: 06/03/23 08:20 Dose: Not Given Documented By: INOCENCIA Non-Admin Reason: IV Running Labs 06/03/23 06:06 06/03/23 06:06 Labs: Laboratory Results - last 24 hr 06/03/23 06:06 MCV 94.0 MCH 31.9 MCHC 33.9 RDW 13.9 Plt Count 156 L MPV 9.7 Absolute Nucleated RBC 0.000 Nucleated RBC % (auto) 0.0 Anion Gap 14 Estim Creat Clear Calc 45.1 Estimated GFR > 60 Fasting Glucose 94 Calcium 9.2 Microbiology Microbiology Results: Microbiology 06/02/23 00:52 Blood Culture - Preliminary Blood - Venous No growth after 24 hours. 06/02/23 00:48 Blood Culture - Preliminary Blood - Venous No growth after 24 hours. Assessment and Plan (1) Paroxysmal atrial fibrillation: Status: Acute Plan 88F PMH COPD, complete heart block s/p pacer, paroxysmal afib, presented with weakness due to covid, hypoxic with ems weakness due to covid copmlicated by COPD with acute decompensation briefly hypoxic per EMS, now on room air prednisone, remdisivir day 2, albuterol inhaler prn monitor o2 sats insomnia sleep aids chronic infected prosthesis cefadroxiil suppressive therapy, daily dressing changes paroxysmal atrial fibrillation toprol, xarelto history of complete heart block pacer mild protein calorie malnutrition encourage po intake dvt prophylaxis - on xarelto DNR/DNI reason for continued hospitalization:monitoring for hypoxia, completing remdisivir Time Spent With Patient Time: Total time managing care of this patient today ____ minutes. Quality Stroke Does the patient have a stroke diagnosis?: No VTE Prior VTE?: No VTE Risk Level:: Medical - moderate - high VTE Device Contraindication: Treatment Not Indicated VTE Drug Contraindication: N/A - Med Ordered
[2023-06-03] MEDS: Anastrozole 1 MG TABLET PO (10:42)
[2023-06-03] MEDS: 0.9 % Sodium Chloride 1,000 ML 50 ML IVCONT (10:43)
[2023-06-03] MEDS: cefTRIAXone sodium 1 GM in 0.9 % Sodium Chloride 50 ML IV (13:01)
[2023-06-03 14:00] VITALS: O2SAT 93
[2023-06-03] MEDS: Remdesivir 100 MG in 0.9 % Sodium Chloride 230 ML 115 MG IV (14:04)
[2023-06-03 15:54] VITALS: BP 135/75; PULSE 69; RESP 18; TEMP 36.7; O2SAT 93
[2023-06-03 19:25] VITALS: BP 143/60; PULSE 61; RESP 18; TEMP 36.7; O2SAT 94
[2023-06-03] MEDS: Acetaminophen 325 MG TABLET 650 MG PO (21:19)
[2023-06-03] MEDS: Atorvastatin Calcium 10 MG TABLET PO (21:19)
[2023-06-03] MEDS: Melatonin 3 MG TABLET PO (21:20)
[2023-06-03] MEDS: 0.9 % Sodium Chloride Flush 3 ML SYRINGE IVFLUSH (21:20)
[2023-06-03] MEDS: diphenhydrAMINE HCL 25 MG CAPSULE 50 MG PO (21:20)
[2023-06-04 03:55] VITALS: BP 140/74; PULSE 72; RESP 18; TEMP 37.1; O2SAT 93
[2023-06-04] MEDS: Levothyroxine Sodium 88 MCG TABLET PO (06:18)
[2023-06-04 08:00] VITALS: BP 145/63; PULSE 63; RESP 20; TEMP 36.3; O2SAT 92
--- NOTE | 2023-06-04 09:19 | P.CDIM_ITS ---
PROVIDER RESPONSE TEXT: To clarify, the appropriate diagnosis supported by the clinical indicators: After study respiratory failure has been ruled out QUERY TEXT: PHYSICIAN'S DOCUMENTATION REQUEST Date of Query: 06/04/2023 09:08 AM EDT Patient Name: Urszula Peter Admit Date: 06/02/2023 Dear Torres Bruno, A review of the medical record indicates additional documentation may be needed. Please review below and update the documentation accordingly. The patient's respiratory clinical indicators were the following: H&P: Assessment/plan - Acute hypoxic respiratory failure According to EMS patient was found to be hypoxic although unclear with the level. Currently on 2 L of oxygen satting mid 90's Continue O2 as required. PN: Assessment/plan - weakness due to covid complicated by COPD with acute decompensation. briefly hypoxic per EMS, now on room air Consistency of documented diagnosis within the medical record: Acute Respiratory failure is/was present and is a clinical diagnosis resolved, suspected, probable, possible etc. After study respiratory failure has been ruled out Other (explain)Clinically unable to determine (explain)Thank you, Tatum Taylor, CCS, CDIS Use of terms such as suspected, likely, concern for, or probable (associated with a specific diagnosi s that is being evaluated, monitored, or treated as if it exists) are acceptable and can be coded in the inpatient se tting, when documented at the time of discharge. Please use your independent medical judgment in providing your response. THIS QUERY IS PART OF THE PERMANENT MEDICAL RECORD
--- NOTE | 2023-06-04 09:37 | P.CDIM_ITS ---
PROVIDER RESPONSE TEXT: To clarify, the appropriate diagnosis supported by the clinical indicators: Pressure (decubitus) ulcer left knee stage 2 QUERY TEXT: PHYSICIAN'S DOCUMENTATION REQUEST Date of Query: 06/04/2023 09:26 AM EDT Patient Name: Urszula Peter Admit Date: 06/02/2023 Dear Torres Bruno, A review of the medical record indicates additional documentation may be needed. Please review below and update the documentation accordingly. Clinical Indicators: Nursing - Pressure injury assessment - Pressure injury left knee Stage 2 Dry & Intact aquapore Based on the above, could you please provide further information regarding the ulcer/wound: Pressure (decubitus) ulcer left knee stage 2 Other please specify Other (explain)Clinically unable to determine (explain)Thank you, Tatum Taylor, CCS, CDIS Use of terms such as suspected, likely, concern for, or probable (associated with a specific diagnosi s that is being evaluated, monitored, or treated as if it exists) are acceptable and can be coded in the inpatient se tting, when documented at the time of discharge. Please use your independent medical judgment in providing your response. THIS QUERY IS PART OF THE PERMANENT MEDICAL RECORD
[2023-06-04] MEDS: Rivaroxaban 15 MG TABLET PO (09:46)
[2023-06-04] MEDS: 0.9 % Sodium Chloride Flush 3 ML SYRINGE IVFLUSH ×3 (09:46→22:42)
[2023-06-04] MEDS: Anastrozole 1 MG TABLET PO (09:46)
[2023-06-04] MEDS: predniSONE 20 MG TABLET 40 MG PO (09:46)
[2023-06-04] MEDS: 0.9 % Sodium Chloride 1,000 ML 50 ML IVCONT (09:47)
[2023-06-04 10:04] LABS: Hematocrit 41.9 % (37.0-47.0); Hemoglobin 13.6 g/dl (12.0-16.0); Mean Corpuscular HGB Conc 32.5 g/dl (31.0-35.0); Mean Corpuscular Hemoglobin 31.1 pg (27.0-33.0); Mean Corpuscular Volume 95.9 fL (80.0-98.0); Mean Platelet Volume 10.3 fL (9.4-12.3); Platelet Count 184 X10*3/uL (160-400); Red Blood Count 4.37 X10*6/uL (4.20-5.50); Red Cell Distribution Width 14.2 % (11.0-16.0); White Blood Count 6.1 X10*3/uL (4.8-10.8)
[2023-06-04 10:18] LABS: Anion Gap 11 (12-20); Blood Urea Nitrogen 15 mg/dL (9-16); Calcium 8.7 mg/dL (8.4-10.2); Carbon Dioxide 27 mmol/L (22-29); Chloride 105 mmol/L (96-108); Creatinine Clr Calc Pharmacy 44.5; Estimated Glomerular Filt Rate > 60; Glucose Fasting 105 mg/dL (60-99); Potassium 3.3 mmol/L (3.3-5.1); Sodium 140 mmol/L (135-145)
--- NOTE | 2023-06-04 10:36 | MHC.CM.PN ---
EMR reviewed and per MD rounds, pt is not medically cleared for D/C due to continued monitoring for hypoxia and completing remdesivir. Pt will likely D/C tomorrow. CM will continue to follow.
--- NOTE | 2023-06-04 10:47 | P.PNIM_ITS ---
Subjective Subjective Date of Service: 06/04/23 Interval History: insomnia Physical Exam 2 Vital Signs: Vital Signs: Last Vital Signs Temp 97.3 F 06/04/23 08:00 Pulse 63 06/04/23 08:00 Resp 20 06/04/23 08:00 BP 145/63 H 06/04/23 08:00 Pulse Ox 92 06/04/23 08:00 O2 Del Method Room Air 06/04/23 08:00 O2 Flow Rate 2 06/03/23 19:25 BMI result Body Mass Index 16.4 General: AO X 3, no acute distress Resp: diminished bilateral, no accessory muscles used CVS: S1,S2,RRR GI: soft, non tender, non distended Neuro: motor grossly intact, alert Psych: appropriate affect, appropriate insight Objective Data Active Medications Acetaminophen (Acetaminophen 325 Mg Tablet) 650 mg PO Q6H PRN PRN Reason: Pain, Mild (Pain Scale 1-3) Last Admin: 06/03/23 21:19 Dose: 650 mg Documented By: ANDREW Albuterol Sulfate (Albuterol Sulfate 90 Mcg 8 Gm Inhaler) 2 puff INHALE RQ4H PRN PRN Reason: sob Albuterol/Ipratropium (Albuterol/Iprat 2.5/0.5mg 3 Ml Ampul.Neb) 3 ml INHALE RQ4H PRN PRN Reason: Shortness of Breath/Wheezing Anastrozole (Anastrozole 1 Mg Tablet) 1 mg PO DAILY UBALDO Last Admin: 06/04/23 09:46 Dose: 1 mg Documented By: HILL Atorvastatin Calcium (Atorvastatin Calcium 10 Mg Tablet) 10 mg PO BEDTIME UBALDO Last Admin: 06/03/23 21:19 Dose: 10 mg Documented By: ANDREW Diphenhydramine HCl (Diphenhydramine Hcl 25 Mg Capsule) 50 mg PO BEDTIME PRN PRN Reason: insomnia Last Admin: 06/03/23 21:20 Dose: 50 mg Documented By: ANDREW Sodium Chloride (Ns) 1,000 mls @ 50 mls/hr IVCONT .Q20H UBALDO Last Admin: 06/04/23 09:47 Dose: 50 mls/hr Documented By: HILL Remdesivir 100 mg/ Sodium (Chloride) 230 mls @ 115 mls/hr IV Q24H UBALDO Stop: 06/04/23 14:59 Last Infusion: 06/03/23 16:05 Dose: Infused Documented By: INOCENCIA Ceftriaxone Sodium 1 gm/ (Sodium Chloride) 50 mls @ 100 mls/hr IV Q24H COUNT INCLUDES THE [facility] Last Infusion: 06/03/23 13:31 Dose: Infused Documented By: INOCENCIA Levothyroxine Sodium (Levothyroxine Sodium 88 Mcg Tablet) 88 mcg PO DAILY@0600 COUNT INCLUDES THE [facility] Last Admin: 06/04/23 06:18 Dose: 88 mcg Documented By: ANDREW Melatonin (Melatonin 3 Mg Tablet) 3 mg PO BEDTIME COUNT INCLUDES THE [facility] Last Admin: 06/03/23 21:20 Dose: 3 mg Documented By: ANDREW Metoprolol Succinate (Metoprolol Succinate Er 25 Mg Tab.Er.24h) 25 mg PO DAILY COUNT INCLUDES THE [facility]; Protocol Last Admin: 06/03/23 08:20 Dose: 25 mg Documented By: INOCENCIA Pt Own Medication ( Cefadroxil 500 Mg Capsule) 500 mg PO BID COUNT INCLUDES THE [facility] Last Admin: 06/04/23 09:58 Dose: 500 mg Documented By: HILL Ondansetron HCl (Ondansetron Hcl 4 Mg/2 Ml Vial) 4 mg IVPUSH Q8H PRN PRN Reason: Nausea and Vomiting Prednisone (Prednisone 20 Mg Tablet) 40 mg PO DAILY COUNT INCLUDES THE [facility] Last Admin: 06/04/23 09:46 Dose: 40 mg Documented By: HILL Rivaroxaban (Rivaroxaban 15 Mg Tablet) 15 mg PO DAILY COUNT INCLUDES THE [facility] Last Admin: 06/04/23 09:46 Dose: 15 mg Documented By: HILL Sodium Chloride (0.9 % Sodium Chloride Flush 3 Ml Syringe) 3 ml IVFLUSH QSHIFT COUNT INCLUDES THE [facility] Last Admin: 06/04/23 09:46 Dose: 3 ml Documented By: HILL Labs 06/04/23 09:22 06/04/23 09:22 Labs: Laboratory Results - last 24 hr 06/04/23 09:22 MCV 95.9 MCH 31.1 MCHC 32.5 RDW 14.2 Plt Count 184 MPV 10.3 Absolute Nucleated RBC 0.000 Nucleated RBC % (auto) 0.0 Anion Gap 11 L Estim Creat Clear Calc 44.5 Estimated GFR > 60 Fasting Glucose 105 H Calcium 8.7 Microbiology Microbiology Results: Microbiology 06/02/23 Unknown Urine Culture - Preliminary Urine clean catch - Urine heard top Gram negative konstantin 06/02/23 00:52 Blood Culture - Preliminary Blood - Venous No growth after 48 hours. 06/02/23 00:48 Blood Culture - Preliminary Blood - Venous No growth after 48 hours. Assessment and Plan (1) Paroxysmal atrial fibrillation: Status: Acute Plan 88F PMH COPD, complete heart block s/p pacer, paroxysmal afib, presented with weakness due to covid, hypoxic with ems weakness due to covid copmlicated by COPD with acute decompensation briefly hypoxic per EMS, now on room air prednisone, remdisivir day 3, albuterol inhaler prn monitor o2 sats insomnia sleep aids uti rocephin chronic infected prosthesis cefadroxiil suppressive therapy, daily dressing changes paroxysmal atrial fibrillation toprol, xarelto history of complete heart block pacer mild protein calorie malnutrition encourage po intake dvt prophylaxis - on xarelto DNR/DNI reason for continued hospitalization:monitoring for hypoxia, completing remdisivir Time Spent With Patient Time: Total time managing care of this patient today ____ minutes. Quality Stroke Does the patient have a stroke diagnosis?: No VTE Prior VTE?: No VTE Risk Level:: Medical - moderate - high VTE Device Contraindication: Treatment Not Indicated VTE Drug Contraindication: N/A - Med Ordered
[2023-06-04] MEDS: Metoprolol Succinate ER 25 MG TAB.ER.24H PO (11:26)
[2023-06-04 11:44] VITALS: BMI 16.4
[2023-06-04 12:45] VITALS: BP 111/55; PULSE 60; RESP 20; TEMP 37.1; O2SAT 95
[2023-06-04] MEDS: cefTRIAXone sodium 1 GM in 0.9 % Sodium Chloride 50 ML IV (13:06)
[2023-06-04] MEDS: Remdesivir 100 MG in 0.9 % Sodium Chloride 230 ML 115 MG IV (14:09)
[2023-06-04 15:23] VITALS: BP 146/82; PULSE 61; RESP 20; TEMP 36.1; O2SAT 91
[2023-06-04 19:13] VITALS: BP 140/74; PULSE 80; RESP 20; TEMP 36.3; O2SAT 92
[2023-06-04] MEDS: Acetaminophen 325 MG TABLET 650 MG PO (22:38)
[2023-06-04] MEDS: diphenhydrAMINE HCL 25 MG CAPSULE 50 MG PO (22:39)
[2023-06-04] MEDS: Atorvastatin Calcium 10 MG TABLET PO (22:39)
[2023-06-04] MEDS: Melatonin 3 MG TABLET PO (22:44)
[2023-06-05 07:34] VITALS: BP 151/82; PULSE 80; RESP 20; TEMP 36.1; O2SAT 92
[2023-06-05] MEDS: 0.9 % Sodium Chloride Flush 3 ML SYRINGE IVFLUSH ×2 (08:16→13:31)
[2023-06-05] MEDS: Anastrozole 1 MG TABLET PO (08:17)
[2023-06-05] MEDS: predniSONE 20 MG TABLET 40 MG PO (08:17)
[2023-06-05] MEDS: Levothyroxine Sodium 88 MCG TABLET PO (08:17)
[2023-06-05] MEDS: Rivaroxaban 15 MG TABLET PO (08:17)
[2023-06-05] MEDS: Metoprolol Succinate ER 25 MG TAB.ER.24H PO (08:17)
--- NOTE | 2023-06-05 09:40 | PM.DS ---
DS: Providers Provider Date of Service: 06/05/23 Date of admission: 06/02/23 02:20 Primary care physician: Unknown Physician DS: Diagnosis Discharge Diagnosis (1) Paroxysmal atrial fibrillation: Status: Acute DS: Summary Hospital Course Hospital Course: from initial hpi: 88-year-old female past medical history of COPD the hospital with complaints of shortness of breath. Patient reports that she tested positive for COVID about 3 days ago, worsening symptoms since. She has increased cough sputum production, and dyspnea. Patient reports no fever, chills, no abdominal pain nausea vomiting, no diarrhea constipation, no chest pain. No palpitations. No headache or change in vision. Patient was found to be hypoxic per EMS although unclear how low, with placed on 2 L of oxygen currently satting 94%. Labs reviewed unremarkable COVID-19 positive Chest x-ray shows no focal consolidation hospital course: Patient was admitted for weakness due to COVID complicated by COPD with acute decompensation. She was briefly hypoxic with EMS, but has been on room air throughout hospitalization. She was she with steroids and 3 day course of remdesivir. On discharge will continue 3 more days of prednisone. Weakness improved. She ambulated well with physical therapy. Also noted to have urinary tract infection due to Pseudomonas, will be given 5 day course of levofloxacin. For chronic infected prosthesis she was continued on cefadroxil suppressive therapy and daily dressing changes. For paroxysmal atrial fibrillation she was continue Toprol and Xarelto. For insomnia she was continued on sleep aids. For history of complete heart block she is status post pacemaker. For mild protein calorie malnutrition p.o. intake is encouraged. Patient is feeling better will be discharged home. Time Spent with Patient Time attestation: Total time managing care of this patient today ____ minutes. Discharge coordination time: Greater than 30 minutes Quality: Safe Use of Opioids Does Pt have an Active Cancer Diagnosis on the Problem List?: No Quality: Stroke Does the patient have a stroke diagnosis?: No Physical Exam Vital Signs: Vital Signs: Last Vital Signs Temp 97.0 F 06/05/23 07:34 Pulse 80 06/05/23 07:34 Resp 20 06/05/23 07:34 BP 151/82 H 06/05/23 07:34 Pulse Ox 92 06/05/23 07:34 O2 Del Method Room Air 06/05/23 07:34 O2 Flow Rate 1 06/04/23 12:45 BMI result Body Mass Index 16.4 General: AO X 3, no acute distress Resp: diminished bilateral, no accessory muscles used CVS: S1,S2,RRR GI: soft, non tender, non distended Neuro: motor grossly intact, alert Psych: appropriate affect, appropriate insight DS: Data Data Completed and Pending Labs on day of discharge: Laboratory Results - last 24 hr 06/04/23 09:22 WBC 6.1 RBC 4.37 Hgb 13.6 Hct 41.9 MCV 95.9 MCH 31.1 MCHC 32.5 RDW 14.2 Plt Count 184 MPV 10.3 Absolute Nucleated RBC 0.000 Nucleated RBC % (auto) 0.0 Sodium 140 Potassium 3.3 Chloride 105 Carbon Dioxide 27 Anion Gap 11 L BUN 15 Creatinine 0.63 Estim Creat Clear Calc 44.5 Estimated GFR > 60 Fasting Glucose 105 H Calcium 8.7 Preliminary micro results at discharge 06/02/23 00:52 Blood Culture - Preliminary Blood - Venous No growth after 48 hours. 06/02/23 00:48 Blood Culture - Preliminary Blood - Venous No growth after 48 hours. Discharge Plan Discharge Anticipated Discharge Date/Time: 06/05/23 09:38 Patient Disposition: Home, Self-Care Discharge Diagnosis: covid, uti Referrals: Physician,Unknown J [Primary Care Provider] - 1 Week Discharge Medications: New prednisone 20 mg Tablet 40 mg PO DAILY Qty: 3 0RF levofloxacin 500 mg tablet 500 mg PO DAILY Qty: 5 0RF Continued anastrozole 1 mg tablet 1 mg PO DAILY atorvastatin 10 mg tablet 10 mg PO DAILY cefadroxil 500 mg capsule 500 mg PO BID levothyroxine 88 mcg tablet 88 mcg PO DAILY zolpidem 5 mg tablet 5 mg PO DAILY PRN (Reason: Sleep) metoprolol succinate 25 mg tablet extended release 24 hr 25 mg PO DAILY Xarelto 15 mg tablet 15 mg PO DAILY Discharge Orders: Discharge Order (Routine); Ordered 06/05/23 Ordered By: Torres Bruno Diet: Advance to usual diet Activity on Discharge: As tolerated Stand Alone Forms: Patient Portal Discharge page Care Plan Goals: recovery Health Concerns: uti, covid Plan of Treatment: 3 more days prednisone, 5 days levaquin Assessment: see above
--- NOTE | 2023-06-05 10:26 | MHC.CM.PN ---
DP: EMR REVIEWED AND PER MD ROUNDS PT IS MEDICALLY CLEARED FOR DC. PT TO RETURN HOME, NO SERVICES. IMM DELIVERED VERBALLY AND COPY WILL BE MAILED TO HOME ADDRESS, PATIENT IS COVID +. PATIENT'S DAUGHTER WILL PROVIDE TRANSPORTATION HOME AT 4PM TODAY.
[2023-06-05] MEDS: cefTRIAXone sodium 1 GM in 0.9 % Sodium Chloride 50 ML IV (12:52)
[2023-06-05 14:49] VITALS: BP 152/73; PULSE 60; RESP 20; TEMP 36.1; O2SAT 92
== END 2023-06-05 15:56 | disposition home or self-care (01) | DRG 178 ==
LOC: HO.ED 01:18 → HO.EDOVER 02:36 → HO.IMC 03:28
PROVIDERS: Admitting Provider Internal Medicine; Emergency Provider Student in an Organized Health Care Education/Training Program; Visit Provider Internal Medicine
DX: U07.1 COVID-19 (principal); E44.1 Mild protein-calorie malnutrition; J44.1 Chronic obstructive pulmonary disease with (acute) exacerbation; Z68.1 Body mass index [BMI] 19.9 or less, adult; I44.2 Atrioventricular block, complete; N39.0 Urinary tract infection, site not specified; Z66 Do not resuscitate; G47.00 Insomnia, unspecified; B96.5 Pseudomonas (aeruginosa) (mallei) (pseudomallei) as the cause of diseases classified elsewhere; I48.0 Paroxysmal atrial fibrillation; Z95.0 Presence of cardiac pacemaker; L89.892 Pressure ulcer of other site, stage 2; C50.919 Malignant neoplasm of unspecified site of unspecified female breast; Z79.811 Long term (current) use of aromatase inhibitors; Z87.891 Personal history of nicotine dependence; Z79.01 Long term (current) use of anticoagulants; Z79.890 Hormone replacement therapy; Z79.899 Other long term (current) drug therapy
CPT/HCPCS: 36415; 71045; 80048; 80053; 81001; 82306; 82803; 83605; 84484; 85025; 85027; 85610; 87040; 87086; 87088; 87186; 87502; 87635; 93005; 94640; 97161; 99285; J0248; J0696; J2930

== ENCOUNTER → 2023-06-02 02:20 | Outpatient (BNV) | payer MEDICARE, BC, SELFPAY | PROVIDERS: Admitting Provider Internal Medicine; Emergency Provider Student in an Organized Health Care Education/Training Program; Visit Provider Internal Medicine | DX: I48.0 Paroxysmal atrial fibrillation (principal) | CPT/HCPCS: 99223; 99232; 99239; 99499 ==

== ENCOUNTER 2023-06-09 10:47 | Inpatient (IN) | payer MEDICARE, BC, SELFPAY ==
[2023-06-09] VITALS (8 sets, daily range): BP systolic 109–155; BP diastolic 54–77; PULSE 60–95; RESP 14–22; TEMP 36.7–37; O2SAT 88–96; BMI 16.0
--- NOTE | ~2023-06-09 | FL_ITS ---
EXAMINATION: Barium swallow and upper GI CLINICAL INFORMATION: Postprandial upper abdominal pain COMPARISON: None. TECHNIQUE: Upper GI was performed using thin and thick barium and effervescent granules. A barium tablet was also performed. Exam is limited due to limited patient mobility. Fluoroscopy time 1 minute 27 seconds. DAP 111 9 mcg/sq m. Total dose 34 mg. 72 saved fluoroscopic images. 2 post overhead images in the AP and CHRISTIE projection also performed. FINDINGS: The swallowing mechanism is normal. No aspiration or penetration. There is mucosal irregularity of the thoracic esophagus suggestive of esophagitis. No mass or stricture is seen. There is stasis of the barium tablet at the GE junction. There is abnormal esophageal motility with the patient in the prone/CHRISTIE position. No reflux was observed however oral contrast did not pass through the esophagus into the stomach with the patient CHRISTIE. Delayed overhead images did not demonstrate reflux and reflux was not seen during fluoroscopy although evaluation for reflux is limited. The stomach and duodenum are normal-appearing. No fold thickening, mass, ulcer or stricture. FL/FL upper GI w air w Ba Swallow IMPRESSION: Limited exam due to patient mobility. New mucosal irregularity of the esophagus suggestive of esophagitis. Abnormal esophageal peristalsis with tertiary contractions. Temporary stasis of the barium tablet at the GE junction. Assessment for reflux limited as described above but no reflux is seen. Stomach and duodenum are normal-appearing.
--- NOTE | ~2023-06-09 | CT_ITS ---
EXAMINATION: CT ABDOMEN AND PELVIS WITH CONTRAST CLINICAL INFORMATION: Follow up soft tissue stranding around the spleen. COMPARISON: Previous chest CTA 06/09/2023. TECHNIQUE: Multidetector volumetric images were obtained from the superior aspect of the liver through the pubic symphysis following administration 85 mL of Omnipaque 350 intravenous contrast. Sagittal and coronal reformatted images were obtained on the technologist's workstation. Oral contrast: Yes This CT examination was performed using dose optimization techniques as appropriate, variously including the following: *Automated exposure control *Adjustment of mA and/or kV according to patient size (this includes techniques or standardized protocols for targeted exams where dose is matched to indication/reason for exam; i.e. extremities or head) *Use of iterative reconstruction technique DLP: 173 mGy-cm FINDINGS: LUNG BASES: Small bilateral pleural effusions and lower lobe subsegmental atelectasis. LIVER, GALLBLADDER, AND BILIARY TREE: The liver is normal in size, shape, and attenuation. Small calcification in the left lobe of the liver. No other focal hepatic lesion. The gallbladder is unremarkable with no evidence of radiopaque gallstones, gallbladder wall thickening, or obvious pericholecystic inflammatory changes. Mild intrahepatic and extrahepatic biliary duct dilatation. The common bile duct measures 8 mm. No common bile duct stone seen by CT. PANCREAS: Unremarkable. The main pancreatic duct is upper normal in size measuring 3 mm. SPLEEN: Wedge-shaped peripheral low attenuation in the inferior spleen suggestive of an infarct. There is mild fat stranding seen surrounding the inferior spleen. ADRENAL GLANDS: Unremarkable. KIDNEYS AND URETERS: The kidneys are normal in size, shape, and attenuation. No hydronephrosis, hydroureter, or calculi seen. No perinephric stranding. BLADDER: Unremarkable. GASTROINTESTINAL TRACT: The small and large bowel are unremarkable. The appendix is unremarkable. ABDOMINAL WALL: Small ventral hernia containing fat. LYMPH NODES: Normal. VASCULAR: Atherosclerotic disease. No aneurysm. There is narrowing at the origins of the celiac axis and SMA. The proximal splenic artery is patent. The distal splenic artery is difficult to visualize. The splenic vein is patent. PELVIC VISCERA: Unremarkable. 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 CT/CT abdomen pelvis w IV con IMPRESSION: Splenic infarcts. Mild fat stranding surrounding the inferior spleen similar to recent chest CTA. Atherosclerotic disease. Fleischner guidelines were followed.
--- NOTE | 2023-06-09 12:45 | ED.GENADULT ---
HPI - General Adult General Chief complaint: Weakness Stated complaint: WEAKNESS Time Seen by Provider: 06/09/23 12:44 Source: patient, family (daughter) and EMS Mode of arrival: EMS Limitations: no limitations History of Present Illness HPI narrative: Patient is an 88 year old assigned female at with a history of atrial fib on anticoagulant, COPD, and recent COVID-19 infection presenting to the emergency department today with continued weakness and shortness of breath. Patient states that she was recently admitted and discharged for COVID-19 and a UTI. Patient states that she was originally feeling better and then she began to feel unwell again. Patient denies any dizziness, lightheadedness, abdominal pain, nausea, vomiting, fever, chills, blurry vision, double vision, loss of vision, chest pain, back pain, night sweats, pain with urination, increased urinary frequency, increased urinary urgency, blood in her urine or stool, syncope or a near syncopal episode, recent trauma or falls, bowel incontinence, bladder incontinence, bowel retention, bladder retention, or any other complaints at this time. Onset (ago): day(s) Relieving factors: none Exacerbating factors: none Associated symptoms: shortness of breath Treatments prior to arrival: none Related Data Home Medications Medication Instructions Recorded Confirmed anastrozole 1 mg tablet 1 mg PO DAILY 06/02/23 06/09/23 atorvastatin 10 mg tablet 10 mg PO DAILY 06/02/23 06/09/23 cefadroxil 500 mg capsule 500 mg PO BID 06/02/23 06/09/23 levothyroxine 88 mcg tablet 88 mcg PO DAILY@0600 06/02/23 06/09/23 metoprolol succinate 25 mg 25 mg PO DAILY 06/02/23 06/09/23 tablet,extended release 24 hr rivaroxaban 15 mg tablet (Xarelto) 15 mg PO BEDTIME 06/02/23 06/09/23 acetaminophen 650 mg 1,300 mg PO BEDTIME 06/09/23 06/09/23 tablet,extended release cholecalciferol (vitamin D3) 25 25 mcg PO DAILY 06/09/23 06/09/23 mcg (1,000 unit) tablet (Vitamin D3) diphenhydramine HCl 25 mg capsule 25 mg PO BEDTIME 06/09/23 06/09/23 (Benadryl) zinc gluconate 50 mg tablet 50 mg PO DAILY 06/09/23 06/09/23 Previous Rx's Medication Instructions Recorded levofloxacin 500 mg tablet 500 mg PO DAILY #5 tabs 06/05/23 Allergies Allergy/AdvReac Type Severity Reaction Status Date / Time codeine AdvReac Unknown Verified 06/09/23 11:06 Review of Systems Constitutional: Constitutional: Reports no additional constitutional complaints, Denies chills, Denies fever(s), Denies night sweats and Reports weakness Eyes: Eyes: Reports no additional eye complaints, Denies blurry vision, Denies change in vision, Denies diplopia, Denies eye discharge, Denies loss of vision and Denies eye pain ENT: Denies dizziness Cardiovascular: Cardiovascular: Reports no additional cardiovascular complaints, Denies chest pain, Denies lightheadedness, Denies Loss of Consciousness and Reports dyspnea Respiratory: Respiratory: Reports no additional respiratory complaints and Reports dyspnea Gastrointestinal: Gastrointestinal: Reports no additional gastrointestinal complaints, Denies abdominal pain, Denies melena, Denies hematochezia, Denies change in bowel habits and Denies change in stool character Genitourinary: Genitourinary: Denies hematuria, Denies urinary frequency, Denies dysuria, Denies urinary incontinence, Denies urinary hesitancy and Denies urinary urgency Musculoskeletal: Musculoskeletal: Reports no additional musculoskeletal complaints, Denies numbness and Denies tingling Neurologic: Denies dizziness, Denies loss of vision, Denies numbness, Denies tingling and Reports weakness Psychiatric: Psychiatric: Reports no additional psychiatric complaints Endocrine: Endocrine: Reports no additional endocrine complaints Hematologic/Lymphatic: Hematologic/Lymphatic: Reports no additional hematologic/lymphatic complaints Allergic/Immunologic: Allergic/Immunologic: Reports no additional allergic/immunologic complaints [facility] Past Medical History Attestation statement: The following information was validated with the patient. (all information validated with the patient's daughter) Source: old records reviewed, obtained from family (patient's daughter provided additional history and confirmed the history provided by the patient.) and nursing notes reviewed Medical History Breast cancer COPD (chronic obstructive pulmonary disease) Paroxysmal atrial fibrillation Artificial cardiac pacemaker Complete heart block Surgical History S/P mastectomy S/P cardiac pacemaker procedure Social History Social History Household Members: None Housing: Condominium Do you presently have visiting nurse or other home services: No Patient Tobacco Use Status: Former Tobacco user Tobacco use type: Cigarette Smoked in Last 30 Days: No e-Cigarette/Vaping Use: Former Use Patient Interested in Nicotine Replacement: No Use of substances other than those prescribed or required for medical reasons: No Currently Displaying Signs/Symptoms of Drug Intoxication Withdrawal: No Any prior treatment program specific to substance use: No Have you been hit, kicked, punched, or otherwise hurt by someone within the past year? If so, by whom?: No Do you feel safe in your current relationship?: Yes Is there a partner from a previous relationship who is making you feel unsafe now?: No Are you made to feel afraid or neglected: No Advance Directives: Yes Advance Directives Information Provided: Yes (Daughter Sandra has on phone) Advance Directives on File: No Advance Directives Date on File: 06/09/23 Do you have thoughts of harming others: None Do you have a plan to hurt others: No Plan Recently lost weight without trying: No Eating poorly because of decreased appetite: Yes Nutrition Risks: No Nutritional Risk Patient : No : No Poor oral hygiene: No service: No Physical Exam ED Vital Signs: Vital Signs - 24 hr 06/09/23 11:02 06/09/23 12:01 06/09/23 13:02 Temperature 98.3 F Pulse Rate 65 60 Respiratory Rate 22 H 14 Blood Pressure 144/71 H 155/62 H Pulse Oximetry 96 92 95 Oxygen Delivery Method Room Air Room Air Room Air Oxygen Flow Rate 06/09/23 13:28 06/09/23 14:34 Temperature Pulse Rate 62 Respiratory Rate 18 Blood Pressure 132/65 Pulse Oximetry 88 L 94 Oxygen Delivery Method Room Air Nasal Cannula Oxygen Flow Rate 2 BMI result Body Mass Index 16.0 Const General: cooperative, no acute distress, alert and awake Nutritional Appearance: cachectic Orientation/consciousness: patient oriented x3 Limitations: no limitations HENMT Head: Yes normal to inspection and Yes atraumatic Ears: hearing grossly normal bilaterally and external ears normal General nose exam: Normal external nose present, no nasal discharge noted and no epistaxis Face and sinus: Yes normal facial exam, No abrasion and No laceration Mouth: Normal oral and palatal mucosa present, no drooling and no muffled voice Eyes General: appearance normal, both eyes and all related structures Periorbital: periorbital findings normal Eyelids: Yes eyelids normal Conjunctivae: conjunctivae normal Pupils: Equal, round and reactive pupils present EOM: EOMs intact bilaterally Neck Neck: Yes normal visual inspection, Yes full ROM and Yes no lymphadenopathy Chest Chest palpation & inspection: normal inspection of the chest Resp Effort & Inspection: normal respiratory effort and able to speak in complete sentences Auscultation: rales diffuse Cardio Rate: regular rate Rhythm: regular rhythm GI Inspection: Yes normal to inspection Palpation (GI): Soft to palpation, not firm, nontender and no guarding Neuro General: patient oriented x3 and moves all extremities Cranial nerves: Yes Equal, round and reactive pupils present Cognition (Neuro): normal cognition Motor exam (neuro): 5/5 motor strength present throughout Sensory Exam: Normal double simultaneous stimulation for sensation Coordination: [id number] test normal Extrem General: Yes normal to inspection, Yes full ROM and Yes capillary refill normal Psych Appearance: grossly normal Mental Status: mental status grossly normal Affect: normal affect Attitude: cooperative Thought process: Normal thought process present Thought content: Normal thought content present Insight: Good insight present (Psych) Medications Administered Generic Name Dose Route Start Last Admin Trade Name Freq PRN Reason Stop Dose Admin Acetaminophen 650 mg 06/09/23 16:32 06/11/23 08:34 Acetaminophen 325 Mg Tablet PO 650 mg Q6H PRN Administration Pain, Mild (Pain Scale 1-3) Albuterol/Ipratropium 3 ml 06/09/23 20:00 06/11/23 07:44 Albuterol/Iprat 2.5/0.5mg 3 Ml Ampul.Neb INHALE 3 ml RQ4H WHILE AWAKE UBALDO Administration Anastrozole 1 mg 06/10/23 09:00 06/11/23 08:34 Anastrozole 1 Mg Tablet PO 1 mg DAILY UBALDO Administration Atorvastatin Calcium 10 mg 06/10/23 09:00 06/11/23 08:34 Atorvastatin Calcium 10 Mg Tablet PO 10 mg DAILY UBALDO Administration Diphenhydramine HCl 25 mg 06/09/23 21:00 06/10/23 22:02 Diphenhydramine Hcl 25 Mg Capsule PO 25 mg BEDTIME UBALDO Administration Docusate Sodium 100 mg 06/09/23 16:32 06/11/23 08:34 Docusate Sodium 100 Mg Capsule PO 100 mg DAILY PRN Administration Constipation Guaifenesin 10 ml 06/09/23 17:00 06/11/23 08:34 Guaifenesin 200 Mg/10 Ml 10 Ml Liquid PO 10 ml Q4H UBALDO Administration Cefepime HCl 2 gm/ Sodium 50 mls @ 100 mls/hr 06/09/23 17:00 06/11/23 08:35 Chloride IV Infused Q12H UBALDO Infusion Vancomycin HCl 1,000 mg/ 270 mls @ 270 mls/hr 06/10/23 18:00 06/11/23 08:43 Sodium Chloride IV Infused Q24H UBALDO Infusion Levothyroxine Sodium 88 mcg 06/10/23 06:00 06/11/23 06:22 Levothyroxine Sodium 88 Mcg Tablet PO 88 mcg DAILY@0600 UBALDO Administration Methylprednisolone Sodium Succinate 60 mg 06/10/23 13:30 06/11/23 08:34 Methylprednisolone Sod Succ 125 Mg/2 Ml Vial IVPUSH 60 mg Q6H UBALDO Administration Metoprolol Succinate 25 mg 06/10/23 09:00 06/11/23 08:34 Metoprolol Succinate Er 25 Mg Tab.Er.24h PO 25 mg DAILY UBALDO Administration Protocol Rivaroxaban 15 mg 06/09/23 21:00 06/10/23 22:02 Rivaroxaban 15 Mg Tablet PO 15 mg BEDTIME UBALDO Administration Sodium Chloride 3 ml 06/10/23 00:00 06/11/23 08:35 0.9 % Sodium Chloride Flush 3 Ml Syringe IVFLUSH 3 ml QSHIFT UBALDO Administration Vitamin D 25 mcg 06/10/23 09:00 06/11/23 08:45 Cholecalciferol (Vitamin D3) 25 Mcg Tablet PO Not Given DAILY UBALDO Zinc Sulfate 220 mg 06/10/23 09:00 06/11/23 08:34 Zinc Sulfate 220 Mg Capsule PO 220 mg DAILY UBALDO Administration Discontinued Medications Generic Name Dose Route Start Last Admin Trade Name Freq PRN Reason Stop Dose Admin Dexamethasone 6 mg 06/09/23 16:45 06/10/23 09:03 Dexamethasone 6 Mg Tablet PO 6 mg DAILY UBALDO Administration Vancomycin HCl 1,250 mg/ 250 mls @ 166.667 mls/hr 06/09/23 17:00 06/09/23 21:30 Sodium Chloride IV 06/09/23 18:29 Infused ONCE ONE Infusion Iohexol 65 ml 06/09/23 13:37 06/09/23 13:38 Iohexol 350 Mg/Ml 100 Ml Infus..Btl IV 06/09/23 13:38 65 ml ONCE ONE Administration Medical Decision Making Medical Decision Making [facility] Narrative: Patient is an 88 year old assigned female at with a history of COPD, paroxysmal a-fib on anticoagulants, recent UTI, and recent COVID-19 infection presenting to the emergency department today with continued weakness and cough. Patient's physical exam was as noted in the phyiscal exam portion of this note. Patient's blood work was unremarkable. Patient's urine showed no acute process. Patient's EKG was unremarkable. Patient's chest x-ray showed no acute process. Patient's CT PE is still pending at this time. Patient had an episode of hypoxia while in the department. Patient's clinical presentation is not consistent with sepsis (@1540). I spoke to the hospitalist who agreed to admission. I explained my physical exam findings as well as all test results to the patient and the patient's daughter.. I answered all questions asked by the patient and the patient's daughter. Patient and the patient's daughter verbalized agreement and understanding with this treatment plan and admission. Differential Diagnosis Differential Diagnoses: The differential diagnosis associated with the presentation includes COVID-19 PE COPD exacerbation Physical deconditioning Admission/Observation Consideration of admission/observation: Escalation of care including admission/observation considered Patient admitted. Consult Healthcare Provider Management of the patient was discussed with: Hospitalist (agreed to admission.) Lab Data [facility] Lab Attestation statement: I reviewed the patient's lab results. My interpretation of these studies and their corresponding values is that they are grossly normal. 06/10/23 06:59 06/11/23 06:56 Labs: Lab Results 06/09/23 06/09/23 06/09/23 Range/Units 11:57 13:32 15:45 WBC 10.3 (4.8-10.8) X10*3/uL RBC 4.53 (4.20-5.50) X10*6/uL Hgb 14.2 (12.0-16.0) g/dl Hct 43.1 (37.0-47.0) % MCV 95.1 (80.0-98.0) fL MCH 31.3 (27.0-33.0) pg MCHC 32.9 (31.0-35.0) g/dl RDW 14.0 (11.0-16.0) % Plt Count 229 (160-400) X10*3/uL MPV 9.4 (9.4-12.3) fL Immature Gran % (Auto) 0.6 H (0.0-0.4) % Neut % (Auto) 86.3 H (45-73) % Lymph % (Auto) 5.3 L (20-40) % Evangeline % (Auto) 7.4 (2-11) % Eos % (Auto) 0.3 (0-4) % Baso % (Auto) 0.1 (0-2) % Lymph # (Auto) 0.6 L (1.2-4.9) X10*3/uL Evangeline # (Auto) 0.8 (0.1-1.2) X10*3/uL Eos # (Auto) 0.0 (0.0-0.4) X10*3/uL Baso # (Auto) 0.0 (0.0-0.2) X10*3/uL Abs Immat Gran (auto) 0.06 H (0.00-0.03) X10*3/uL Absolute Neuts (auto) 8.9 H (2.0-8.3) x10*3/uL Absolute Nucleated RBC 0.000 (0.0-0.012) X10*3/uL Nucleated RBC % (auto) 0.0 (0.0-0.2) /100WBC Sodium 143 (135-145) mmol/L Potassium 3.5 (3.3-5.1) mmol/L Chloride 101 (96-108) mmol/L Carbon Dioxide 28 (22-29) mmol/L Anion Gap 18 (12-20) BUN 13 (9-16) mg/dL Creatinine 0.71 (0.5-1.4) mg/dL Estim Creat Clear Calc 39.7 Estimated GFR > 60 Random Glucose 87 (60-115) mg/dL Calcium 8.7 (8.4-10.2) mg/dL Magnesium 1.9 (1.6-2.6) mg/dL Total Bilirubin 0.7 (0.0-1.0) mg/dL AST 22 (5-31) U/L ALT 13 (0-31) U/L Alkaline Phosphatase 67 (39-117) U/L Troponin I High Sens 17.8 H (<3.5-17.0) ng/L Total Protein 6.0 L (6.5-8.0) g/dL Albumin 3.5 (3.5-5.0) g/dL Urine Color Yellow Urine Appearance Clear Urine pH 7.0 (5.0-9.0) Ur Specific [place] 1.015 (1.005-1.025) Urine Protein Negative (Neg-Trace) mg/dL Urine Glucose (UA) Negative (Negative) mg/dL Urine Ketones Trace (Negative) mg/dL Urine Blood Negative (Negative) Urine Nitrite Negative (Negative) Ur Leukocyte Esterase Small (1+) H (Negative) Urine RBC 0-2 (0-2) /HPF Urine WBC 0-5 (0-5) /HPF Ur Squamous Epith Cells 0-2 (0-2) /HPF Urine Bacteria None Seen (None Seen) Hyaline Casts 0-2 (0-2) /LPF Influenza Type A (PCR) NEGATIVE (Negative) Influenza Type B (PCR) NEGATIVE (Negative) RSV RNA Qual (PCR) NEGATIVE (Negative) SARS-CoV-2 RNA (RT-PCR) POSITIVE A (Negative) Independent Interpretation I performed an independent interpretation of an: EKG and Plain X-Ray Interpretation: My interpretation is in agreement with the radiologist's impression of these imaging studies. EXAMINATION: XR CHEST CLINICAL INFORMATION: Reason for Exam weakness COMPARISON: Chest radiograph 06/02/2023 TECHNIQUE: 2 views of the chest FINDINGS: Lines and tubes: EKG leads overlie the patient. Left chest wall dual lead cardiac pacemaker unchanged. Peripherally calcified breast prostheses. Clear lungs. No pleural effusion. No pneumothorax. Unchanged cardiomediastinal silhouette. XR/XR chest 2V IMPRESSION: Clear lungs. Dictated By: Suki Monroe MD Signed By: Electronically signed by Suki Monroe MD 06/09/23 1238 Vent. Rate: 060 BPM Atrial Rate: 060 BPM P-R Int: 172 ms QRS Dur: 148 ms QT Int: 500 ms P-R-T Axes: 000 -75 094 degrees QTc Int: 500 ms AV dual-paced rhythm Abnormal ECG When compared with ECG of 02-JUN-2023 00:32, Vent. rate has decreased BY 4 BPM DD/ 1106 Radiology Impression Discussion of test interpretation with radiology: I have reviewed the radiologist's reading. Independent Historian Clinical information obtained from an independent historian. History obtained from or confirmed by: EMS (EMS provided additional history and confirmed the history provided by the patient.) and Other (patient's daughter provided additional history and confirmed the history provided by the patient) External Record Review External record reviewed: Inpatient record Critical Care Time Critical Care Time Critical Care Time: Yes Total Critical Care Time: 60 Attestation: I spent 60 minutes of Critical Care Time with this patient. This does not include time spent on separately reported billable procedures. Discharge Plan Discharge Clinical Impression: COPD (chronic obstructive pulmonary disease), Hypoxia Patient Disposition: Admitted As Inpatient Interventions: Admission Worksheet (ED) Last Done: 06/09/23 18:48 Discharge Date/Time: 06/09/23 18:52
[2023-06-09 13:19] LABS: Influenza A PCR NEGATIVE (Negative); Influenza B PCR NEGATIVE (Negative); Resp Syncy Virus RNA Qual PCR NEGATIVE (Negative); SARS COV2 PCR INHOUSE POSITIVE (Negative)
--- NOTE | 2023-06-09 16:38 | PM.IMHP ---
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 She was recently admitted from 06/02-06/05 for COPD exacerbation and COVID-19 with acute hypoxemic respiratory failure treated with IV steroids and remdesivir and discharged on 3 days of prednisone and levaquin which she took as prescribed. She states she completed prednisone 3 days ago and shortly after developed worsening symptoms. Per her daughter, Sandra, who assists with history, pt has remained afebrile but appears to have worsening chest congestion and is unable to expectorate. She was found to be hypoxic in the 80s on arrival and was placed on 2 L supplemental O2 with symptomatic improvement. Her daughter questions whether she needs a home O2 evaluation. She is not on any maintenance medications for her COPD and does not have an albuterol inhaler. She is also reporting pleuritic chest pain and abdominal pain with deep inspiration and cough. On arrival, vitals otherwise stable except for the previously noted hypoxia. There is no leukocytosis. Renal function and electrolyte levels are normal. Troponin 17.8. COVID-19 remains positive. Negative for influenza and RSV. Chest x-ray is negative for any acute cardiopulmonary abnormality. CTA chest negative for any PE with emphysematous disease with superimposed nonspecific bilateral lower lobar airspace disease and calcified sub 5 mm lung nodule in right upper lobe with trace pericardial effusion. There is also incidentally seen soft tissue stranding around the spleen as well as asymmetric soft tissue prominence along the inferior medial aspect of the right-sided breast implant. Review of Systems Review of Systems: General: No fevers, malaise, unintentional weight loss. +generalized weakness HEENT: No sore throat, nasal congestion, rhinorrhea, sinus pain, ear pain Cardiovascular: No chest pain, palpitations, or leg edema Respiratory: +sob, +wheezing, +cough GI: +abd pain, +nausea. No vomiting, diarrhea, constipation, melena, hematochezia : No dysuria, hematuria, increased urinary frequency, decreased urinary output MSK: No myalgia, back pain Neuro: No headaches, focal weakness, paresthesias Skin: No rashes or lesions [facility] Medical History Breast cancer COPD (chronic obstructive pulmonary disease) Paroxysmal atrial fibrillation Artificial cardiac pacemaker Complete heart block Surgical History S/P mastectomy S/P cardiac pacemaker procedure Social History Household Members: Family Housing: House Patient Tobacco Use Status: Never used Tobacco Advance Directives: Yes Advance Directives on File: No service: No Meds Allergies Allergy/AdvReac Type Severity Reaction Status Date / Time codeine AdvReac Unknown Verified 06/09/23 11:06 Home Medications Medication Instructions Recorded Confirmed Last Taken Type anastrozole 1 mg tablet 1 mg PO DAILY 06/02/23 06/09/23 06/09/23 09:00 History atorvastatin 10 mg tablet 10 mg PO DAILY 06/02/23 06/09/23 06/09/23 09:00 History cefadroxil 500 mg capsule 500 mg PO BID 06/02/23 06/09/23 06/09/23 09:00 History levothyroxine 88 mcg tablet 88 mcg PO DAILY@0600 06/02/23 06/09/23 06/09/23 06:00 History metoprolol succinate 25 mg 25 mg PO DAILY 06/02/23 06/09/23 06/09/23 09:00 History tablet,extended release 24 hr rivaroxaban 15 mg tablet (Xarelto) 15 mg PO BEDTIME 06/02/23 06/09/23 Unknown History acetaminophen 650 mg 1,300 mg PO BEDTIME 06/09/23 06/09/23 Unknown History tablet,extended release cholecalciferol (vitamin D3) 25 25 mcg PO DAILY 06/09/23 06/09/23 06/09/23 09:00 History mcg (1,000 unit) tablet (Vitamin D3) diphenhydramine HCl 25 mg capsule 25 mg PO BEDTIME 06/09/23 06/09/23 Unknown History (Benadryl) zinc gluconate 50 mg tablet 50 mg PO DAILY 06/09/23 06/09/23 06/09/23 09:00 History Physical Exam Vital Signs and Narrative: Vital Signs: Last Vital Signs Temp 98.3 F 06/09/23 11:02 Pulse 62 06/09/23 14:34 Resp 18 06/09/23 14:34 BP 132/65 06/09/23 14:34 Pulse Ox 94 06/09/23 14:34 O2 Del Method Nasal Cannula 06/09/23 14:34 O2 Flow Rate 2 06/09/23 14:34 BMI result Body Mass Index 16.0 Constitutional - Awake and Alert, cachectic appearing, No apparent distress Eyes - PERRLA, EOMI Cardiovascular - S1S2, RRR, No edema Respiratory - Normal lung expansion, Normal respiratory effort, No respiratory distress on 2L supplemental O2, rhonchi RUL and BLL, scattered expiratory wheezes Gastrointestinal - NT / ND; +BS; No rebound or guarding Extremities - no calf tenderness bilaterally, no swelling Skin - Warm/Dry Neurological - Alert & oriented x3 Psychological - Appropriate affect Results Labs 06/09/23 11:57 06/09/23 11:57 Labs: Laboratory Results - last 24 hr 06/09/23 06/09/23 11:57 13:32 MCV 95.1 MCH 31.3 MCHC 32.9 RDW 14.0 Plt Count 229 MPV 9.4 Immature Gran % (Auto) 0.6 H Neut % (Auto) 86.3 H Lymph % (Auto) 5.[address] [place] % (Auto) 7.4 Eos % (Auto) 0.3 Baso % (Auto) 0.1 Lymph # (Auto) 0.[address] [place] # (Auto) 0.8 Eos # (Auto) 0.0 Baso # (Auto) 0.0 Abs Immat Gran (auto) 0.06 H Absolute Neuts (auto) 8.9 H Absolute Nucleated RBC 0.000 Nucleated RBC % (auto) 0.0 Anion Gap 18 Estim Creat Clear Calc 39.7 Estimated GFR > 60 Random Glucose 87 Calcium 8.7 Magnesium 1.9 Total Bilirubin 0.7 AST 22 ALT 13 Alkaline Phosphatase 67 Total Protein 6.0 L Albumin 3.5 Urine Color Yellow Urine Appearance Clear Urine pH 7.0 Ur Specific [place] 1.015 Urine Protein Negative Urine Glucose (UA) Negative Urine Ketones Trace Urine Blood Negative Urine Nitrite Negative Ur Leukocyte Esterase Small (1+) H Urine RBC 0-2 Urine WBC 0-5 Ur Squamous Epith Cells 0-2 Urine Bacteria None Seen Hyaline Casts 0-2 Influenza Type A (PCR) NEGATIVE Influenza Type B (PCR) NEGATIVE RSV RNA Qual (PCR) NEGATIVE SARS-CoV-2 RNA (RT-PCR) POSITIVE A Imaging Radiologist's Impressions: Impressions Chest X-Ray 06/09/23 11:48 IMPRESSION: Clear lungs. 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 #Acute hypoxemic respiratory failure- 2/2 pneumonia and COPD exacerbation -Continue supplemental O2 to maintain oximetry 90-92% -Dtr feels patient may benefit from home evaluation -CTA negative for PE but shows nonspecific bilateral lower lobe airspace disease # bilateral lower lobe pneumonia R/T COVID-19 -CTA showing nonspecific bilateral lower lobe airspace disease -no leukocytosis, but patient hypoxic as above. No sepsis -given recent hospitalization, IV vancomycin and cefepime (initiated 06/09) -symptomatic management -strep pneumo antigen, Legionella antigen, and sputum culture pending -Follow cbc, cultures #COPD exacerbation -not on maintenance inhalers -Duonebs q4h, transition to spiriva inhaler as symptoms improve -albuterol q2h prn -supplemental O2 as above #COVID-19 -initially diagnosed 06/02, treated with remdesivir x 3 days -No further antiviral therapy indicated -decadron 6mg daily -airborne/contact precautions #Elevated troponin -no chest pain, EKG no acute ischemic changes -Initial trop 17.8, repeat pending -likely demand in setting of hypoxia #Breast cancer -continue anastrozole -s/p mastectomy with reconstructive breast augmentation. Chest CTA notes abnormality in right-sided breast implant. 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 Hold for now. Pt on cefepime. Resume as appropriate #Incidentaloma -soft tissue stranding spleen- abd exam benign. Likely not clinically relevant. Follow up outpt DVT prophylaxis-Lovenox DNR/DNI Patient requires inpatient stay at least 2 midnights for management of acute hypoxemic respiratory failure and bialteral pneumonia at risk for HCAP 2/2 COVID 19 requiring supplemental O2 and IV abx Time Spent With Patient Time: Total time managing care of this patient today ____ minutes. Quality Stroke Does the patient have a stroke diagnosis?: No VTE Prior VTE?: No VTE Risk Level:: Medical - moderate - high VTE Device Contraindication: Treatment Not Indicated VTE Drug Contraindication: N/A - Med Ordered
--- NOTE | 2023-06-09 16:55 | PHA.MEDREC ---
Pharmacy Consult ? Medication Reconciliation Pharmacy has completed the medication reconciliation. Spoke to patient to confirm meds.
--- NOTE | 2023-06-09 17:07 | PHA.PROG ---
Admission Date/Time: June 09, 2023 16:32 Indication: RESPIRATORY INFECTION Weight in k.1 kg Adjusted body weight in Kg: [place] body weight in Kg: Obesity Dosing Indication % IBW: Serum Creatinine - Last 168 Hours 06/09/23 11:57 Creatinine 0.71 Estimated CrCl and GFR - Last 168 Hours 06/09/23 11:57 Estim Creat Clear Calc 39.7 Estimated GFR > 60 Vancomycin Loading Dose: 1250 MG Current Vancomycin Dosing Regimen:1 GRAM Q 24 HOURS Vancomycin Monitoring using AUC goal of 400 - 600 range with trough as surrogate marker: PREDICTED AUC OF 482 Date and Time for next Vancomycin Level to be drawn: 06/11/23 1600 Pharmacist Comments on Vancomycin Plan:WILL CHECK LEVEL AFTER 2 DOSES Vancomycin dosing will take advantage of [employer] as a clinical decision support tool that uses Bayesian modeling to calculate individual patient's pharmacokinetic parameters and forecast the patient's drug concentration time course with the target goal AUC 24 range of 400 - 600 mg/L/hr.
--- NOTE | 2023-06-10 00:04 | PC.RT ---
pt trialed on room air and sats dropped below 88% per RN. Placed back on 2 l n/c
[2023-06-10 02:59] VITALS: BP 106/59; PULSE 66; RESP 18; TEMP 36.7; O2SAT 92
[2023-06-10 07:16] LABS: Basophils Percent Auto 0.1 % (0-2); Eosinophils Percent Auto 0.1 % (0-4); Hematocrit 41.3 % (37.0-47.0); Hemoglobin 13.8 g/dl (12.0-16.0); Imm Gran Abs Auto 0.05 X10*3/uL (0.00-0.03); Imm Gran Pct Auto 0.6 % (0.0-0.4); Lymphocytes Absolute Auto 0.5 X10*3/uL (1.2-4.9); Lymphocytes Percent Auto 5.3 % (20-40); MANUAL DIFF FLAG SCAN; Mean Corpuscular HGB Conc 33.4 g/dl (31.0-35.0); Mean Corpuscular Hemoglobin 31.2 pg (27.0-33.0); Mean Corpuscular Volume 93.4 fL (80.0-98.0); Mean Platelet Volume 9.6 fL (9.4-12.3); Monocytes Absolute Auto 0.3 X10*3/uL (0.1-1.2); Monocytes Percent Auto 2.9 % (2-11); Platelet Count 252 X10*3/uL (160-400); Red Blood Count 4.42 X10*6/uL (4.20-5.50); Red Cell Distribution Width 13.8 % (11.0-16.0); SCAN SMEAR FLAG 1; White Blood Count 8.8 X10*3/uL (4.8-10.8)
[2023-06-10 07:23] LABS: Anion Gap 18 (12-20); Blood Urea Nitrogen 15 mg/dL (9-16); Calcium 8.6 mg/dL (8.4-10.2); Carbon Dioxide 25 mmol/L (22-29); Chloride 102 mmol/L (96-108); Creatinine Clr Calc Pharmacy 40.3; Estimated Glomerular Filt Rate > 60; Glucose Random 117 mg/dL (60-115); Potassium 3.8 mmol/L (3.3-5.1); Sodium 141 mmol/L (135-145)
[2023-06-10 08:00] VITALS: BP 102/59; PULSE 68; RESP 20; TEMP 36.6; O2SAT 97
[2023-06-10 08:10] LABS: SLIDE REVIEW VERIFIED
--- NOTE | 2023-06-10 09:12 | HE.PHANOTE ---
RE VANCOMYCIN CONTINUE CURRENT DOSE, NEXT LEVEL DUE 1600 ON 06/11 JOSE
--- NOTE | 2023-06-10 09:45 | MHC.CM.PN ---
Patient is covid (+) and not reachable by phone; CM spoke with Daughter/HCP/Sandra at listed #. 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 Home/new [facility] is the goal and CM has initiated and will follow for dc planning. PCP is Dr. Dinh Mcconnell.
[2023-06-10 12:00] VITALS: BP 122/58; PULSE 60; RESP 20; TEMP 36.3; O2SAT 92
--- NOTE | 2023-06-10 12:24 | HO.PM.IMPN ---
Subjective Subjective Date of Service: 06/10/23 Interval History: notes some improvement in breathing however still ext Review of Systems denies chest pain Denies shortness of breath Denies nausea vomiting diarrhea Denies fever chills Physical Exam Vital Signs: Vital Signs: Last Vital Signs Temp 97.9 F 06/10/23 08:00 Pulse 68 06/10/23 08:00 Resp 20 06/10/23 08:00 BP 102/59 L 06/10/23 08:00 Pulse Ox 97 06/10/23 08:00 O2 Del Method Nasal Cannula 06/10/23 08:00 O2 Flow Rate 1 06/10/23 08:00 BMI result Body Mass Index 16.0 Const: Other: resting quietly in bed. No respiratory distress noted Resp: Other: diminished at based; scattered expiratory wheezes at bases Cardio: Other: no S4; positive S1-S2; no S3 murmurs rubs or gallops GI: Other: soft nontender nondistended normoactive bowel sounds Extrem: Other: no edema bilaterally Objective Data Active Medications Acetaminophen (Acetaminophen 325 Mg Tablet) 650 mg PO Q6H PRN PRN Reason: Pain, Mild (Pain Scale 1-3) Last Admin: 06/09/23 23:15 Dose: 650 mg Documented By: ANDREW Albuterol Sulfate (Albuterol Sulfate 90 Mcg 8 Gm Inhaler) 2 puff INHALE RQ4H PRN PRN Reason: Shortness of Breath/Wheezing Albuterol/Ipratropium (Albuterol/Iprat 2.5/0.5mg 3 Ml Ampul.Neb) 3 ml INHALE RQ4H WHILE AWAKE [facility] Last Admin: 06/10/23 11:14 Dose: Not Given Documented By: BRIAN Non-Admin Reason: Patient Asleep Anastrozole (Anastrozole 1 Mg Tablet) 1 mg PO DAILY [facility] Last Admin: 06/10/23 09:04 Dose: 1 mg Documented By: WILLIAMS Atorvastatin Calcium (Atorvastatin Calcium 10 Mg Tablet) 10 mg PO DAILY [facility] Last Admin: 06/10/23 09:03 Dose: 10 mg Documented By: WILLIAMS Dexamethasone (Dexamethasone 6 Mg Tablet) 6 mg PO DAILY [facility] Last Admin: 06/10/23 09:03 Dose: 6 mg Documented By: WILLIAMS Diphenhydramine HCl (Diphenhydramine Hcl 25 Mg Capsule) 25 mg PO BEDTIME [facility] Last Admin: 06/09/23 22:17 Dose: 25 mg Documented By: ANDREW Docusate Sodium (Docusate Sodium 100 Mg Capsule) 100 mg PO DAILY PRN PRN Reason: Constipation Guaifenesin (Guaifenesin 200 Mg/10 Ml 10 Ml Liquid) 10 ml PO Q4H [facility] Last Admin: 06/10/23 09:05 Dose: 10 ml Documented By: WILLIAMS Cefepime HCl 2 gm/ Sodium (Chloride) 50 mls @ 100 mls/hr IV Q12H [facility] Last Infusion: 06/10/23 07:56 Dose: Infused Documented By: WILLIAMS Vancomycin HCl 1,000 mg/ (Sodium Chloride) 270 mls @ 270 mls/hr IV Q24H [facility] Levothyroxine Sodium (Levothyroxine Sodium 88 Mcg Tablet) 88 mcg PO DAILY@0600 [facility] Last Admin: 06/10/23 05:59 Dose: 88 mcg Documented By: ANDREW Metoprolol Succinate (Metoprolol Succinate Er 25 Mg Tab.Er.24h) 25 mg PO DAILY [facility]; Protocol Last Admin: 06/10/23 09:11 Dose: Not Given Documented By: WILLIAMS Non-Admin Reason: Decreased Blood Pressure Ondansetron HCl (Ondansetron Hcl 4 Mg/2 Ml Vial) 4 mg IVPUSH Q8H PRN PRN Reason: Nausea and Vomiting Pharmacy Consult (Consult Rx Vancomycin Dosing) 1 each MISCELLANE DAILY PRN PRN Reason: Consult order Rivaroxaban (Rivaroxaban 15 Mg Tablet) 15 mg PO BEDTIME [facility] Last Admin: 06/09/23 20:05 Dose: 15 mg Documented By: ANDREW Sodium Chloride (0.9 % Sodium Chloride Flush 3 Ml Syringe) 3 ml IVFLUSH QSHIFT [facility] Last Admin: 06/10/23 09:06 Dose: 3 ml Documented By: WILLIAMS Vitamin D (Cholecalciferol (Vitamin D3) 25 Mcg Tablet) 25 mcg PO DAILY [facility] Last Admin: 06/10/23 09:03 Dose: 25 mcg Documented By: WILLIAMS Zinc Sulfate (Zinc Sulfate 220 Mg Capsule) 220 mg PO DAILY [facility] Last Admin: 06/10/23 09:03 Dose: 220 mg Documented By: WILLIAMS Labs 06/10/23 06:59 06/10/23 06:59 Labs: Laboratory Results - last 24 hr 06/09/23 06/09/23 06/09/23 11:57 13:32 18:25 MCV MCH MCHC RDW Plt Count MPV Immature Gran % (Auto) Neut % (Auto) Lymph % (Auto) [place] % (Auto) Eos % (Auto) Baso % (Auto) Lymph # (Auto) [place] # (Auto) Eos # (Auto) Baso # (Auto) Abs Immat Gran (auto) Absolute Neuts (auto) Absolute Nucleated RBC Nucleated RBC % (auto) Smear Tech's Comments Anion Gap 18 Estim Creat Clear Calc 39.7 Estimated GFR > 60 Random Glucose 87 Calcium 8.7 Magnesium 1.9 Total Bilirubin 0.7 AST 22 ALT 13 Alkaline Phosphatase 67 Total Protein 6.0 L Albumin 3.5 Urine Color Yellow Urine Appearance Clear Urine pH 7.0 Ur Specific [place] 1.015 Urine Protein Negative Urine Glucose (UA) Negative Urine Ketones Trace Urine Blood Negative Urine Nitrite Negative Ur Leukocyte Esterase Small (1+) H Urine RBC 0-2 Urine WBC 0-5 Ur Squamous Epith Cells 0-2 Urine Bacteria None Seen Hyaline Casts 0-2 Influenza Type A (PCR) NEGATIVE Influenza Type B (PCR) NEGATIVE Ur L.pneumophila Ag Cancelled RSV RNA Qual (PCR) NEGATIVE SARS-CoV-2 RNA (RT-PCR) POSITIVE A 06/10/23 06:59 MCV 93.4 MCH 31.2 MCHC 33.4 RDW 13.8 Plt Count 252 MPV 9.6 Immature Gran % (Auto) 0.6 H Neut % (Auto) 91.0 H Lymph % (Auto) 5.3 L [place] % (Auto) 2.9 Eos % (Auto) 0.1 Baso % (Auto) 0.1 Lymph # (Auto) 0.5 L [place] # (Auto) 0.3 Eos # (Auto) 0.0 Baso # (Auto) 0.0 Abs Immat Gran (auto) 0.05 H Absolute Neuts (auto) 8.0 Absolute Nucleated RBC 0.000 Nucleated RBC % (auto) 0.0 Smear Tech's Comments VERIFIED Anion Gap 18 Estim Creat Clear Calc 40.3 Estimated GFR > 60 Random Glucose 117 H Calcium 8.6 Magnesium Total Bilirubin AST ALT Alkaline Phosphatase Total Protein Albumin Urine Color Urine Appearance Urine pH Ur Specific [place] Urine Protein Urine Glucose (UA) Urine Ketones Urine Blood Urine Nitrite Ur Leukocyte Esterase Urine RBC Urine WBC Ur Squamous Epith Cells Urine Bacteria Hyaline Casts Influenza Type A (PCR) Influenza Type B (PCR) Ur L.pneumophila Ag RSV RNA Qual (PCR) SARS-CoV-2 RNA (RT-PCR) Microbiology Microbiology Results: Microbiology 06/09/23 Unknown Urine Culture - Final Urine clean catch - Urine heard top No growth. 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 #Acute hypoxemic respiratory failure- 2/2 pneumonia and COPD exacerbation -Continue supplemental O2 to maintain oximetry 90-92% -vancomycin/cefepime (2) -Follow cbc, cultures 2.COVID-19 -initially diagnosed 06/02, treated with remdesivir x 3 days - will switch to Solu-Medrol given lung exam -airborne/contact precautions 3.Paroxysmal atrial fibrillation - rate control adequate -continue Xarelto for anticoagulation -continue metoprolol Xarelto DNR/DNI requires ongoing hospitalization to treat COVID pneumonia/hospital-acquired pneumonia Time Spent With Patient Time: Total time managing care of this patient today ____ minutes. Quality Stroke Does the patient have a stroke diagnosis?: No VTE Prior VTE?: No VTE Risk Level:: Medical - moderate - high VTE Device Contraindication: Treatment Not Indicated VTE Drug Contraindication: N/A - Med Ordered
[2023-06-10 16:00] VITALS: BP 125/58; PULSE 65; RESP 18; TEMP 36.4; O2SAT 96
[2023-06-10 19:05] VITALS: BP 103/55; PULSE 89; RESP 18; TEMP 37; O2SAT 95
[2023-06-10 23:39] VITALS: BP 127/89; PULSE 89; RESP 18; TEMP 37; O2SAT 93
[2023-06-11] VITALS (8 sets, daily range): BP systolic 99–126; BP diastolic 58–78; PULSE 63–95; RESP 12–20; TEMP 36–37; O2SAT 91–94; BMI 16.5
--- NOTE | 2023-06-11 08:44 | PC.NURSE ---
PATIENT DID NOT RECIEVE DOSE OF VANCO IV, DATED 06/10. MEDICATION FOUND HANGING IN PT ROOM.
--- NOTE | 2023-06-11 13:51 | HO.PM.IMPN ---
Subjective Subjective Date of Service: 06/11/23 Interval History: notes improvement overnight. Able to wean to room air Review of Systems denies chest pain Denies shortness of breath Denies nausea vomiting diarrhea Denies fever chills Physical Exam Vital Signs: Vital Signs: Last Vital Signs Temp 97.9 F 06/11/23 11:44 Pulse 78 06/11/23 11:44 Resp 20 06/11/23 11:44 BP 124/60 06/11/23 11:44 Pulse Ox 91 L 06/11/23 11:44 O2 Del Method Room Air 06/11/23 11:44 O2 Flow Rate 2 06/11/23 07:37 BMI result Body Mass Index 16.5 Const: Other: resting quietly in bed. No respiratory distress noted Resp: Other: diminished at based; scattered expiratory wheezes at bases Cardio: Other: no S4; positive S1-S2; no S3 murmurs rubs or gallops GI: Other: soft nontender nondistended normoactive bowel sounds Extrem: Other: no edema bilaterally Objective Data Active Medications Acetaminophen (Acetaminophen 325 Mg Tablet) 650 mg PO Q6H PRN PRN Reason: Pain, Mild (Pain Scale 1-3) Last Admin: 06/11/23 08:34 Dose: 650 mg Documented By: PHAN Albuterol Sulfate (Albuterol Sulfate 90 Mcg 8 Gm Inhaler) 2 puff INHALE RQ4H PRN PRN Reason: Shortness of Breath/Wheezing Albuterol/Ipratropium (Albuterol/Iprat 2.5/0.5mg 3 Ml Ampul.Neb) 3 ml INHALE RQ4H WHILE AWAKE [facility] Last Admin: 06/11/23 11:33 Dose: Not Given Documented By: LUIS Non-Admin Reason: Patient Refused Anastrozole (Anastrozole 1 Mg Tablet) 1 mg PO DAILY [facility] Last Admin: 06/11/23 08:34 Dose: 1 mg Documented By: PHAN Atorvastatin Calcium (Atorvastatin Calcium 10 Mg Tablet) 10 mg PO DAILY [facility] Last Admin: 06/11/23 08:34 Dose: 10 mg Documented By: PHAN Diphenhydramine HCl (Diphenhydramine Hcl 25 Mg Capsule) 25 mg PO BEDTIME [facility] Last Admin: 06/10/23 22:02 Dose: 25 mg Documented By: HO.POTTSSU Docusate Sodium (Docusate Sodium 100 Mg Capsule) 100 mg PO DAILY PRN PRN Reason: Constipation Last Admin: 06/11/23 08:34 Dose: 100 mg Documented By: PHAN Guaifenesin (Guaifenesin 200 Mg/10 Ml 10 Ml Liquid) 10 ml PO Q4H [facility] Last Admin: 06/11/23 12:10 Dose: Not Given Documented By: PHAN Non-Admin Reason: Patient Refused Cefepime HCl 2 gm/ Sodium (Chloride) 50 mls @ 100 mls/hr IV Q12H [facility] Last Infusion: 06/11/23 08:35 Dose: Infused Documented By: PHAN Vancomycin HCl 1,000 mg/ (Sodium Chloride) 270 mls @ 270 mls/hr IV Q24H [facility] Last Infusion: 06/11/23 08:43 Dose: Infused Documented By: PHAN Levothyroxine Sodium (Levothyroxine Sodium 88 Mcg Tablet) 88 mcg PO DAILY@0600 [facility] Last Admin: 06/11/23 06:22 Dose: 88 mcg Documented By: ANDREW Methylprednisolone Sodium Succinate (Methylprednisolone Sod Succ 125 Mg/2 Ml Vial) 60 mg IVPUSH Q6H [facility] Last Admin: 06/11/23 13:04 Dose: 60 mg Documented By: PHAN Metoprolol Succinate (Metoprolol Succinate Er 25 Mg Tab.Er.24h) 25 mg PO DAILY [facility]; Protocol Last Admin: 06/11/23 08:34 Dose: 25 mg Documented By: PHAN Ondansetron HCl (Ondansetron Hcl 4 Mg/2 Ml Vial) 4 mg IVPUSH Q8H PRN PRN Reason: Nausea and Vomiting Pharmacy Consult (Consult Rx Vancomycin Dosing) 1 each MISCELLANE DAILY PRN PRN Reason: Consult order Rivaroxaban (Rivaroxaban 15 Mg Tablet) 15 mg PO BEDTIME [facility] Last Admin: 06/10/23 22:02 Dose: 15 mg Documented By: ANDREW Sodium Chloride (0.9 % Sodium Chloride Flush 3 Ml Syringe) 3 ml IVFLUSH QSHIFT [facility] Last Admin: 06/11/23 13:04 Dose: 3 ml Documented By: PHAN Vitamin D (Cholecalciferol (Vitamin D3) 25 Mcg Tablet) 25 mcg PO DAILY [facility] Last Admin: 06/11/23 08:45 Dose: Not Given Documented By: PHAN Non-Admin Reason: Patient Refused Zinc Sulfate (Zinc Sulfate 220 Mg Capsule) 220 mg PO DAILY [facility] Last Admin: 06/11/23 08:34 Dose: 220 mg Documented By: PHAN Labs 06/10/23 06:59 06/11/23 06:56 Labs: Laboratory Results - last 24 hr 06/11/23 06:56 Estim Creat Clear Calc 37.6 Estimated GFR > 60 Microbiology Microbiology Results: Microbiology 06/10/23 13:08 Gram Stain - Final Sputum - Expectorated Sputum Culture - Preliminary Culture in progress. 06/09/23 17:26 Blood Culture - Preliminary Blood - Venous No growth after 24 hours. 06/09/23 17:28 Blood Culture - Preliminary Blood - Venous No growth after 24 hours. 06/09/23 Unknown Urine Culture - Final Urine clean catch - Urine heard top No growth. 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 #Acute hypoxemic respiratory failure- 2/2 pneumonia and COPD exacerbation -Continue supplemental O2 p.r.n.. . . Now satting 90 on room air -vancomycin/cefepime (3) -Follow cbc, cultures (negative thus far) 2.COVID-19 -initially diagnosed 06/02, treated with remdesivir x 3 days -will switch to Solu-Medrol given lung exam -airborne/contact precautions 3.Paroxysmal atrial fibrillation - rate control adequate -continue Xarelto for anticoagulation -continue metoprolol Xarelto DNR/DNI requires ongoing hospitalization to treat COVID pneumonia/hospital-acquired pneumonia Time Spent With Patient Time: Total time managing care of this patient today ____ minutes. Quality Stroke Does the patient have a stroke diagnosis?: No VTE Prior VTE?: No VTE Risk Level:: Medical - moderate - high VTE Device Contraindication: Treatment Not Indicated VTE Drug Contraindication: N/A - Med Ordered
--- NOTE | 2023-06-11 17:09 | HE.PHANOTE ---
LILIYA WRIGHT PT DID NOT GET DOSE FROM 06/10. FOUND IN ROOM HANGING BUT NEVER INFUSED. DOSE WAS DUE @1800 ON 06/10. PHARMACY ONLY DISCOVERED IT WHEN THE TROUGH CAME BACK SUB THERAPEUTIC AT 3.2. IT WAS DISCOVERED BY PHARMACY 06/11 @1700 WHEN THE LAB RESULTED. DOCUMENTATION OF THE GIVEN DOSE WAS NEVER REVERSED. PT GETTING ANOTHER 1250 LOAD, THEN 1G Q24 H. NEXT LEVEL DUE 06/13 @1500
[2023-06-12] VITALS (11 sets, daily range): BP systolic 111–138; BP diastolic 57–89; PULSE 62–96; RESP 14–20; TEMP 36.2–37.6; O2SAT 92–100
--- NOTE | 2023-06-12 11:06 | PC.NURSE ---
pt reporting 10/10 pain below bilateral breasts that radiates to back and does not get worse with respirations. All vitals WNL patient denies any other pain/discomfort. MD notified promptly and an ECG/ labs were ordered. Maalox was administered to patient for the pain. Patient states that the pain is now more bearable at a 4/10 on the pain scale.
--- NOTE | 2023-06-12 13:13 | MHC.CM.PN ---
EMR reviewed and per MD rounds, pt is not medically cleared for D/C due to ongoing treatment for covid pneumonia. CM will continue to follow.
--- NOTE | 2023-06-12 14:54 | HO.PM.IMPN ---
Subjective Subjective Date of Service: 06/12/23 Interval History: Slowly improving. Still with minimal O2 requirement. Feels better but still fatigue Review of Systems denies chest pain Denies shortness of breath Denies nausea vomiting diarrhea Denies fever chills Physical Exam Vital Signs: Vital Signs: Last Vital Signs Temp 97.1 F 06/12/23 11:43 Pulse 82 06/12/23 11:43 Resp 18 06/12/23 11:43 BP 123/89 06/12/23 11:43 Pulse Ox 100 06/12/23 11:43 O2 Del Method Nasal Cannula 06/12/23 11:43 O2 Flow Rate 2 06/12/23 11:43 BMI result Body Mass Index 16.5 Const: Other: resting quietly in bed. No respiratory distress noted Resp: Other: diminished at based; scattered expiratory wheezes at bases Cardio: Other: no S4; positive S1-S2; no S3 murmurs rubs or gallops GI: Other: soft nontender nondistended normoactive bowel sounds Extrem: Other: no edema bilaterally Objective Data Active Medications Acetaminophen (Acetaminophen 325 Mg Tablet) 650 mg PO Q6H PRN PRN Reason: Pain, Mild (Pain Scale 1-3) Last Admin: 06/11/23 08:34 Dose: 650 mg Documented By: PHAN Albuterol Sulfate (Albuterol Sulfate 90 Mcg 8 Gm Inhaler) 2 puff INHALE RQ4H PRN PRN Reason: Shortness of Breath/Wheezing Albuterol/Ipratropium (Albuterol/Iprat 2.5/0.5mg 3 Ml Ampul.Neb) 3 ml INHALE RQ4H WHILE AWAKE [facility] Last Admin: 06/12/23 12:23 Dose: Not Given Documented By: LUIS Non-Admin Reason: Patient Refused Anastrozole (Anastrozole 1 Mg Tablet) 1 mg PO DAILY [facility] Last Admin: 06/12/23 09:37 Dose: 1 mg Documented By: SOFY Atorvastatin Calcium (Atorvastatin Calcium 10 Mg Tablet) 10 mg PO DAILY [facility] Last Admin: 06/12/23 09:37 Dose: 10 mg Documented By: SOFY Diphenhydramine HCl (Diphenhydramine Hcl 25 Mg Capsule) 25 mg PO BEDTIME [facility] Last Admin: 06/11/23 21:27 Dose: 25 mg Documented By: HO.DAHLAN Docusate Sodium (Docusate Sodium 100 Mg Capsule) 100 mg PO DAILY PRN PRN Reason: Constipation Last Admin: 06/11/23 08:34 Dose: 100 mg Documented By: PHAN Guaifenesin (Guaifenesin 200 Mg/10 Ml 10 Ml Liquid) 10 ml PO Q4H [facility] Last Admin: 06/12/23 13:29 Dose: 10 ml Documented By: SOFY Cefepime HCl 2 gm/ Sodium (Chloride) 50 mls @ 100 mls/hr IV Q12H [facility] Last Infusion: 06/12/23 06:24 Dose: Infused Documented By: JESSICA Vancomycin HCl 1,000 mg/ (Sodium Chloride) 270 mls @ 270 mls/hr IV Q24H [facility] Levothyroxine Sodium (Levothyroxine Sodium 88 Mcg Tablet) 88 mcg PO DAILY@0600 [facility] Last Admin: 06/12/23 05:48 Dose: 88 mcg Documented By: JESSICA Methylprednisolone Sodium Succinate (Methylprednisolone Sod Succ 125 Mg/2 Ml Vial) 60 mg IVPUSH Q6H [facility] Last Admin: 06/12/23 13:29 Dose: 60 mg Documented By: SOFY Metoprolol Succinate (Metoprolol Succinate Er 25 Mg Tab.Er.24h) 25 mg PO DAILY [facility]; Protocol Last Admin: 06/12/23 09:37 Dose: 25 mg Documented By: SOFY Ondansetron HCl (Ondansetron Hcl 4 Mg/2 Ml Vial) 4 mg IVPUSH Q8H PRN PRN Reason: Nausea and Vomiting Pharmacy Consult (Consult Rx Vancomycin Dosing) 1 each MISCELLANE DAILY PRN PRN Reason: Consult order Rivaroxaban (Rivaroxaban 15 Mg Tablet) 15 mg PO BEDTIME [facility] Last Admin: 06/11/23 21:26 Dose: 15 mg Documented By: JESSICA Sodium Chloride (0.9 % Sodium Chloride Flush 3 Ml Syringe) 3 ml IVFLUSH QSHIFT [facility] Last Admin: 06/12/23 13:29 Dose: 3 ml Documented By: SOFY Vitamin D (Cholecalciferol (Vitamin D3) 25 Mcg Tablet) 25 mcg PO DAILY [facility] Last Admin: 06/12/23 09:37 Dose: 25 mcg Documented By: HO.FOSTEKR Zinc Sulfate (Zinc Sulfate 220 Mg Capsule) 220 mg PO DAILY [facility] Last Admin: 06/12/23 09:37 Dose: 220 mg Documented By: FOSTEKR Labs 06/12/23 07:33 06/12/23 07:09 Labs: Laboratory Results - last 24 hr 06/11/23 06/12/23 06/12/23 16:12 07:09 07:33 MCV 93.8 MCH 31.5 MCHC 33.6 RDW 14.3 Plt Count 262 MPV 9.5 Immature Gran % (Auto) 0.6 H Neut % (Auto) 95.8 H Lymph % (Auto) 1.5 L [place] % (Auto) 2.0 Eos % (Auto) 0.0 Baso % (Auto) 0.1 Lymph # (Auto) 0.3 L [place] # (Auto) 0.4 Eos # (Auto) 0.0 Baso # (Auto) 0.0 Abs Immat Gran (auto) 0.11 H Absolute Neuts (auto) 18.8 H Absolute Nucleated RBC 0.000 Nucleated RBC % (auto) 0.0 Smear Tech's Comments VERIFIED Estim Creat Clear Calc 39.2 Estimated GFR > 60 Random Vancomycin 3.2 L Microbiology Microbiology Results: Microbiology 06/10/23 13:08 Gram Stain - Final Sputum - Expectorated Sputum Culture - Final 06/09/23 17:26 Blood Culture - Preliminary Blood - Venous No growth after 48 hours. 06/09/23 17:28 Blood Culture - Preliminary Blood - Venous No growth after 48 hours. 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 1.Acute hypoxemic respiratory failure- 2/2 pneumonia and COPD exacerbation -Continue supplemental O2 p.r.n.. . . Titrate as indicated -vancomycin/cefepime (4) -Follow cbc, cultures (negative thus far) 2.COVID-19 -initially diagnosed 06/02, treated with remdesivir x 3 days -will switch to Solu-Medrol given lung exam -airborne/contact precautions 3.Paroxysmal atrial fibrillation - rate control adequate -continue Xarelto for anticoagulation -continue metoprolol Xarelto DNR/DNI requires ongoing hospitalization to treat COVID pneumonia/hospital-acquired pneumonia Time Spent With Patient Time: Total time managing care of this patient today ____ minutes. Quality Stroke Does the patient have a stroke diagnosis?: No VTE Prior VTE?: No VTE Risk Level:: Medical - moderate - high VTE Device Contraindication: Treatment Not Indicated VTE Drug Contraindication: N/A - Med Ordered
[2023-06-13] VITALS (8 sets, daily range): BP systolic 126–155; BP diastolic 61–69; PULSE 62–103; RESP 16–20; TEMP 36.2–36.9; O2SAT 93–99
[2023-06-13 08:46] LABS: Alanine Aminotransferase 16 U/L (0-31); Albumin Level 3.7 g/dL (3.5-5.0); Alkaline Phosphatase 65 U/L (39-117); Anion Gap 14 (12-20); Aspartate Amino Transferase 23 U/L (5-31); Bilirubin Total 0.5 mg/dL (0.0-1.0); Blood Urea Nitrogen 18 mg/dL (9-16); Calcium 9.1 mg/dL (8.4-10.2); Carbon Dioxide 27 mmol/L (22-29); Chloride 102 mmol/L (96-108); Creatinine Clr Calc Pharmacy 41.5; Estimated Glomerular Filt Rate > 60; Glucose Random 129 mg/dL (60-115); Potassium 4.1 mmol/L (3.3-5.1); Sodium 139 mmol/L (135-145); Total Protein 6.1 g/dL (6.5-8.0)
--- NOTE | 2023-06-13 09:45 | MHC.CM.PN ---
EMR REVIEWED, PT W/COPD EXAC/PNA/COVID19, PT REMAINS ON PRN NEB'S, IV SOLUMEDROL AND IV ABX, NO PLAN FOR DC AT THIS TIME, P.T. [facility] AND [facility] FOLLOWING, CM WILL CONT TO FOLLOW D/C NEEDS.
--- NOTE | 2023-06-13 14:01 | MHC.CLN ---
F/U PT IS UNDER WT FOR HT PER MD GOMEZ PCM PT IS FAMILIAR FROM RECENT ADMISSION APPROX 1 WEEK AGO HT USED FOR ASSESSMENT 5'5 DIET RX: REGULAR -APPROPRIATE PT RECEIVING FORTIFIED ICE CREAM TID WITH MEALS TO INCREASE KCALS MONITOR PO INTAKE CLOSELY
--- NOTE | 2023-06-13 15:46 | HO.PM.IMPN ---
Subjective Subjective Date of Service: 06/13/23 Interval History: Continue to improve. Able to ambulate around room on room air. Complain of extreme GERD symptoms today resolved with Maalox Review of Systems denies chest pain Denies shortness of breath Denies nausea vomiting diarrhea Denies fever chills Physical Exam Vital Signs: Vital Signs: Last Vital Signs Temp 97.9 F 06/13/23 15:15 Pulse 63 06/13/23 15:15 Resp 20 06/13/23 15:15 BP 145/69 H 06/13/23 15:15 Pulse Ox 96 06/13/23 15:15 O2 Del Method Nasal Cannula 06/13/23 15:15 O2 Flow Rate 2 06/13/23 15:15 BMI result Body Mass Index 16.5 Const: Other: resting quietly in bed. No respiratory distress noted Resp: Other: diminished at based; minimal expiratory wheezes Cardio: Other: no S4; positive S1-S2; no S3 murmurs rubs or gallops GI: Other: soft nontender nondistended normoactive bowel sounds Extrem: Other: no edema bilaterally Objective Data Active Medications Acetaminophen (Acetaminophen 325 Mg Tablet) 650 mg PO Q6H PRN PRN Reason: Pain, Mild (Pain Scale 1-3) Last Admin: 06/11/23 08:34 Dose: 650 mg Documented By: PHAN Al Hydroxide/Mg Hydroxide (Magnesium Hydrox/Alum Hydrox 30 Ml Oral.Susp) 30 ml PO Q6H PRN PRN Reason: Heartburn Last Admin: 06/13/23 09:53 Dose: 30 ml Documented By: SOFY Albuterol Sulfate (Albuterol Sulfate 90 Mcg 8 Gm Inhaler) 2 puff INHALE RQ4H PRN PRN Reason: Shortness of Breath/Wheezing Albuterol/Ipratropium (Albuterol/Iprat 2.5/0.5mg 3 Ml Ampul.Neb) 3 ml INHALE RQ4H WHILE AWAKE [facility] Last Admin: 06/13/23 12:03 Dose: Not Given Documented By: BRIAN Non-Admin Reason: Patient Asleep Anastrozole (Anastrozole 1 Mg Tablet) 1 mg PO DAILY [facility] Last Admin: 06/13/23 08:49 Dose: 1 mg Documented By: SOFY Atorvastatin Calcium (Atorvastatin Calcium 10 Mg Tablet) 10 mg PO DAILY [facility] Last Admin: 06/13/23 08:50 Dose: 10 mg Documented By: SOFY Diphenhydramine HCl (Diphenhydramine Hcl 25 Mg Capsule) 25 mg PO BEDTIME [facility] Last Admin: 06/12/23 20:35 Dose: 25 mg Documented By: GEORGE Docusate Sodium (Docusate Sodium 100 Mg Capsule) 100 mg PO DAILY PRN PRN Reason: Constipation Last Admin: 06/12/23 20:35 Dose: 100 mg Documented By: GEORGE Guaifenesin (Guaifenesin 200 Mg/10 Ml 10 Ml Liquid) 10 ml PO Q4H [facility] Last Admin: 06/13/23 11:46 Dose: 10 ml Documented By: SOFY Cefepime HCl 2 gm/ Sodium (Chloride) 50 mls @ 100 mls/hr IV Q12H [facility] Last Infusion: 06/13/23 06:15 Dose: Infused Documented By: GEORGE Vancomycin HCl 1,250 mg/ (Sodium Chloride) 250 mls @ 166.667 mls/hr IV Q24H [facility] Levothyroxine Sodium (Levothyroxine Sodium 88 Mcg Tablet) 88 mcg PO DAILY@0600 [facility] Last Admin: 06/13/23 05:36 Dose: 88 mcg Documented By: GEORGE Metoprolol Succinate (Metoprolol Succinate Er 25 Mg Tab.Er.24h) 25 mg PO DAILY [facility]; Protocol Last Admin: 06/13/23 08:50 Dose: 25 mg Documented By: SOFY Ondansetron HCl (Ondansetron Hcl 4 Mg/2 Ml Vial) 4 mg IVPUSH Q8H PRN PRN Reason: Nausea and Vomiting Pantoprazole Sodium (Pantoprazole Sodium 40 Mg/10 Ml Vial) 40 mg IVPUSH BID@0630,1630 [facility] Last Admin: 06/13/23 11:46 Dose: 40 mg Documented By: SOFY Pharmacy Consult (Consult Rx Vancomycin Dosing) 1 each MISCELLANE DAILY PRN PRN Reason: Consult order Rivaroxaban (Rivaroxaban 15 Mg Tablet) 15 mg PO BEDTIME [facility] Last Admin: 06/12/23 20:35 Dose: 15 mg Documented By: GEORGE Sodium Chloride (0.9 % Sodium Chloride Flush 3 Ml Syringe) 3 ml IVFLUSH QSHIFT [facility] Last Admin: 06/13/23 08:50 Dose: 3 ml Documented By: SOFY Vitamin D (Cholecalciferol (Vitamin D3) 25 Mcg Tablet) 25 mcg PO DAILY [facility] Last Admin: 06/13/23 08:50 Dose: 25 mcg Documented By: SOFY Zinc Sulfate (Zinc Sulfate 220 Mg Capsule) 220 mg PO DAILY [facility] Last Admin: 06/13/23 08:50 Dose: 220 mg Documented By: SOFY Labs 06/13/23 08:47 06/13/23 07:35 Labs: Laboratory Results - last 24 hr 06/13/23 06/13/23 06/13/23 07:35 08:06 08:47 MCV 94.7 MCH 30.9 MCHC 32.7 RDW 14.4 Plt Count 235 MPV 9.9 Immature Gran % (Auto) 0.8 H Neut % (Auto) 95.3 H Lymph % (Auto) 1.2 L [place] % (Auto) 2.6 Eos % (Auto) 0.0 Baso % (Auto) 0.1 Lymph # (Auto) 0.3 L [place] # (Auto) 0.6 Eos # (Auto) 0.0 Baso # (Auto) 0.0 Abs Immat Gran (auto) 0.17 H Absolute Neuts (auto) 20.7 H Absolute Nucleated RBC 0.000 Nucleated RBC % (auto) 0.0 Smear Tech's Comments VERIFIED Hold Purple Top SEE NOTE Anion Gap 14 Estim Creat Clear Calc 41.5 Estimated GFR > 60 Random Glucose 129 H Calcium 9.1 Total Bilirubin 0.5 AST 23 ALT 16 Alkaline Phosphatase 65 Total Protein 6.1 L Albumin 3.7 Random Vancomycin 06/13/23 15:01 MCV MCH MCHC RDW Plt Count MPV Immature Gran % (Auto) Neut % (Auto) Lymph % (Auto) Green % (Auto) Eos % (Auto) Baso % (Auto) Lymph # (Auto) Green # (Auto) Eos # (Auto) Baso # (Auto) Abs Immat Gran (auto) Absolute Neuts (auto) Absolute Nucleated RBC Nucleated RBC % (auto) Smear Tech's Comments Hold Purple Top Anion Gap Estim Creat Clear Calc Estimated GFR Random Glucose Calcium Total Bilirubin AST ALT Alkaline Phosphatase Total Protein Albumin Random Vancomycin 11.5 L Assessment and Plan (1) Bilateral pneumonia: Status: Acute Plan 88-year-old female with history of paroxysmal atrial fibrillation anticoagulated with Xarelto, breast cancer s/p mastectomy on anastrozole, 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 1.Acute hypoxemic respiratory failure- 2/2 pneumonia and COPD exacerbation -Continue supplemental O2 p.r.n.. . . Titrate as indicated -vancomycin/cefepime (5) -Follow cbc, cultures (negative thus far) 2.COVID-19 -initially diagnosed 06/02, treated with remdesivir x 3 days -DC steroid secondary to abdominal pain -airborne/contact precautions 3.Paroxysmal atrial fibrillation - rate control adequate -continue Xarelto for anticoagulation -continue metoprolol 4.GERD -Maalox p.r.n. -IV Protonix Xarelto DNR/DNI requires ongoing hospitalization to treat COVID pneumonia/hospital-acquired pneumonia Time Spent With Patient Time: Total time managing care of this patient today ____ minutes. Quality Stroke Does the patient have a stroke diagnosis?: No VTE Prior VTE?: No VTE Risk Level:: Medical - moderate - high VTE Device Contraindication: Treatment Not Indicated VTE Drug Contraindication: N/A - Med Ordered
[2023-06-13 16:34] LABS: Strep Pneumo Ag urine Not Detected (Not Detected)
[2023-06-13] MEDS: Magnesium Hydrox/Alum Hydrox 30 ML ORAL.SUSP PO (17:17)
[2023-06-13] MEDS: Pantoprazole Sodium 40 MG/10 ML VIAL IVPUSH (17:17)
[2023-06-13] MEDS: guaiFENesin 200 MG/10 ML 10 ML LIQUID PO ×2 (17:17→21:42)
[2023-06-13] MEDS: Albuterol/Iprat 2.5/0.5MG 3 ML AMPUL.NEB INHALE (19:53)
[2023-06-13] MEDS: diphenhydrAMINE HCL 25 MG CAPSULE PO (21:42)
[2023-06-13] MEDS: Rivaroxaban 15 MG TABLET PO (21:42)
[2023-06-13] MEDS: Sennosides 8.6 MG TABLET 17.2 MG PO (22:50)
[2023-06-14 02:57] VITALS: BP 122/68; PULSE 91; RESP 20; TEMP 36.7; O2SAT 92
[2023-06-14] MEDS: Levothyroxine Sodium 88 MCG TABLET PO (05:28)
[2023-06-14] MEDS: guaiFENesin 200 MG/10 ML 10 ML LIQUID PO ×2 (05:28→07:57)
[2023-06-14] MEDS: Pantoprazole Sodium 40 MG/10 ML VIAL IVPUSH (05:28)
[2023-06-14 07:45] LABS: Basophils Percent Auto 0.2 % (0-2); Eosinophils Percent Auto 0.1 % (0-4); Hemoglobin 12.5 g/dl (12.0-16.0); Imm Gran Abs Auto 0.16 X10*3/uL (0.00-0.03); Imm Gran Pct Auto 0.9 % (0.0-0.4); Lymphocytes Absolute Auto 0.4 X10*3/uL (1.2-4.9); Lymphocytes Percent Auto 2.2 % (20-40); MANUAL DIFF FLAG SCAN; Mean Corpuscular HGB Conc 32.9 g/dl (31.0-35.0); Mean Corpuscular Hemoglobin 31.3 pg (27.0-33.0); Mean Platelet Volume 10.3 fL (9.4-12.3); Monocytes Percent Auto 5.2 % (2-11); Neutrophils Absolute Auto 16.8 x10*3/uL (2.0-8.3); Neutrophils Percent Auto 91.4 % (45-73); Platelet Count 192 X10*3/uL (160-400); Red Cell Distribution Width 14.3 % (11.0-16.0); SCAN SMEAR FLAG 1; White Blood Count 18.3 X10*3/uL (4.8-10.8)
[2023-06-14] MEDS: Magnesium Hydrox/Alum Hydrox 30 ML ORAL.SUSP PO ×4 (07:57→20:21)
[2023-06-14] MEDS: Cholecalciferol (Vitamin D3) 25 MCG TABLET PO (07:57)
[2023-06-14] MEDS: Atorvastatin Calcium 10 MG TABLET PO (07:58)
[2023-06-14] MEDS: Metoprolol Succinate ER 25 MG TAB.ER.24H PO (07:58)
[2023-06-14] MEDS: Zinc Sulfate 220 MG CAPSULE PO (07:58)
[2023-06-14 08:00] VITALS: BP 141/67; PULSE 68; RESP 18; TEMP 36.7; O2SAT 93
[2023-06-14] MEDS: Anastrozole 1 MG TABLET PO (08:00)
[2023-06-14 08:15] LABS: Alanine Aminotransferase 19 U/L (0-31); Albumin Level 2.9 g/dL (3.5-5.0); Alkaline Phosphatase 55 U/L (39-117); Anion Gap 12 (12-20); Aspartate Amino Transferase 26 U/L (5-31); Bilirubin Total 0.6 mg/dL (0.0-1.0); Blood Urea Nitrogen 17 mg/dL (9-16); C Reactive Protein 0.43 mg/dL (< or = 0.50); Calcium 8.3 mg/dL (8.4-10.2); Carbon Dioxide 24 mmol/L (22-29); Chloride 105 mmol/L (96-108); Estimated Glomerular Filt Rate > 60; Glucose Fasting 89 mg/dL (60-99); Sodium 137 mmol/L (135-145); Total Protein 5.2 g/dL (6.5-8.0)
[2023-06-14] MEDS: Albuterol/Iprat 2.5/0.5MG 3 ML AMPUL.NEB INHALE (08:19)
[2023-06-14 08:22] VITALS: PULSE 66; RESP 18; O2SAT 95
[2023-06-14 08:28] LABS: Procalcitonin 0.03 ng/mL
[2023-06-14 08:40] LABS: SLIDE REVIEW VERIFIED
--- NOTE | 2023-06-14 11:14 | HO.PM.IMPN ---
Subjective Subjective Date of Service: 06/14/23 Interval History: abd pain from yesterday resolved, willing to try PT now c/o constipation weaned off O2 this AM no fever minimal dyspnea Review of Systems Review of Systems: Yes all other systems are reviewed and are negative Physical Exam Vital Signs: Vital Signs: Last Vital Signs Temp 98.0 F 06/14/23 08:00 Pulse 66 06/14/23 08:22 Resp 18 06/14/23 08:22 BP 141/67 H 06/14/23 08:00 Pulse Ox 93 06/14/23 08:00 O2 Del Method Nasal Cannula 06/14/23 08:00 O2 Flow Rate 3 06/14/23 08:00 BMI result Body Mass Index 16.5 Gen: in no acute distress HEENT: sclera anicteric, moist mucus membranes Neck: supple Lungs: somewhat diminished Heart: regular rate and rhythm, no murmurs Abd: soft, non-tender, non-distended Ext: no edema Skin: warm/well-perfused Neuro: alert and oriented x3, no focal findings Psych: appropriate affect Objective Data Active Medications Acetaminophen (Acetaminophen 325 Mg Tablet) 650 mg PO Q6H PRN PRN Reason: Pain, Mild (Pain Scale 1-3) Last Admin: 06/11/23 08:34 Dose: 650 mg Documented By: PHAN Al Hydroxide/Mg Hydroxide (Magnesium Hydrox/Alum Hydrox 30 Ml Oral.Susp) 30 ml PO Q6H PRN PRN Reason: Heartburn Last Admin: 06/14/23 07:57 Dose: 30 ml Documented By: LYNNE Albuterol Sulfate (Albuterol Sulfate 90 Mcg 8 Gm Inhaler) 2 puff INHALE RQ4H PRN PRN Reason: Shortness of Breath/Wheezing Albuterol/Ipratropium (Albuterol/Iprat 2.5/0.5mg 3 Ml Ampul.Neb) 3 ml INHALE RQ4H WHILE AWAKE [facility] Last Admin: 06/14/23 08:19 Dose: 3 ml Documented By: RAMÍREZ Anastrozole (Anastrozole 1 Mg Tablet) 1 mg PO DAILY [facility] Last Admin: 06/14/23 08:00 Dose: 1 mg Documented By: LYNNE Atorvastatin Calcium (Atorvastatin Calcium 10 Mg Tablet) 10 mg PO DAILY [facility] Last Admin: 06/14/23 07:58 Dose: 10 mg Documented By: LYNNE Diphenhydramine HCl (Diphenhydramine Hcl 25 Mg Capsule) 25 mg PO BEDTIME [facility] Last Admin: 06/13/23 21:42 Dose: 25 mg Documented By: GEORGE Docusate Sodium (Docusate Sodium 100 Mg Capsule) 100 mg PO DAILY PRN PRN Reason: Constipation Last Admin: 06/12/23 20:35 Dose: 100 mg Documented By: GEORGE Guaifenesin (Guaifenesin 200 Mg/10 Ml 10 Ml Liquid) 10 ml PO Q4H [facility] Last Admin: 06/14/23 07:57 Dose: 10 ml Documented By: LYNNE Cefepime HCl 2 gm/ Sodium (Chloride) 50 mls @ 100 mls/hr IV Q12H [facility] Last Infusion: 06/14/23 06:20 Dose: Infused Documented By: GEORGE Vancomycin HCl 1,250 mg/ (Sodium Chloride) 250 mls @ 166.667 mls/hr IV Q24H [facility] Last Infusion: 06/13/23 21:28 Dose: Infused Documented By: GEORGE Levothyroxine Sodium (Levothyroxine Sodium 88 Mcg Tablet) 88 mcg PO DAILY@0600 [facility] Last Admin: 06/14/23 05:28 Dose: 88 mcg Documented By: GEORGE Metoprolol Succinate (Metoprolol Succinate Er 25 Mg Tab.Er.24h) 25 mg PO DAILY [facility]; Protocol Last Admin: 06/14/23 07:58 Dose: 25 mg Documented By: LYNNE Ondansetron HCl (Ondansetron Hcl 4 Mg/2 Ml Vial) 4 mg IVPUSH Q8H PRN PRN Reason: Nausea and Vomiting Pantoprazole Sodium (Pantoprazole Sodium 40 Mg/10 Ml Vial) 40 mg IVPUSH BID@0630,1630 [facility] Last Admin: 06/14/23 05:28 Dose: 40 mg Documented By: GEORGE Pharmacy Consult (Consult Rx Vancomycin Dosing) 1 each MISCELLANE DAILY PRN PRN Reason: Consult order Polyethylene Glycol (Polyethylene Glycol 3350 17 Gm Powd.Pack) 17 gm PO DAILY [facility] Rivaroxaban (Rivaroxaban 15 Mg Tablet) 15 mg PO BEDTIME [facility] Last Admin: 06/13/23 21:42 Dose: 15 mg Documented By: GEORGE Senna/Docusate Sodium (Sennosides/Docusate Sodium Tablet) 2 tab PO BID [facility] Sodium Chloride (0.9 % Sodium Chloride Flush 3 Ml Syringe) 3 ml IVFLUSH QSHIFT [facility] Last Admin: 06/14/23 08:00 Dose: 3 ml Documented By: LYNNE Vitamin D (Cholecalciferol (Vitamin D3) 25 Mcg Tablet) 25 mcg PO DAILY [facility] Last Admin: 06/14/23 07:57 Dose: 25 mcg Documented By: LYNNE Zinc Sulfate (Zinc Sulfate 220 Mg Capsule) 220 mg PO DAILY [facility] Last Admin: 06/14/23 07:58 Dose: 220 mg Documented By: LYNNE Labs 06/14/23 07:05 06/14/23 07:05 Labs: Laboratory Results - last 24 hr 06/09/23 06/13/23 06/14/23 18:25 15:01 07:05 MCV 95.0 MCH 31.3 MCHC 32.9 RDW 14.3 Plt Count 192 MPV 10.3 Immature Gran % (Auto) 0.9 H Neut % (Auto) 91.4 H Lymph % (Auto) 2.2 L [place] % (Auto) 5.2 Eos % (Auto) 0.1 Baso % (Auto) 0.2 Lymph # (Auto) 0.4 L [place] # (Auto) 1.0 Eos # (Auto) 0.0 Baso # (Auto) 0.0 Abs Immat Gran (auto) 0.16 H Absolute Neuts (auto) 16.8 H Absolute Nucleated RBC 0.000 Nucleated RBC % (auto) 0.0 Smear Tech's Comments VERIFIED Anion Gap 12 Estim Creat Clear Calc 47.0 Estimated GFR > 60 Fasting Glucose 89 Calcium 8.3 L D Total Bilirubin 0.6 AST 26 ALT 19 Alkaline Phosphatase 55 C-Reactive Protein 0.43 Total Protein 5.2 L Albumin 2.9 L Procalcitonin 0.03 Random Vancomycin 11.5 L Ur Strep pneumoniae Ag Not Detected Assessment and Plan (1) Bilateral pneumonia: Status: Acute Plan d6 88yo F with paroxysmal AF on rivaroxaban, breast CA s/p mastectomy on anastrozole, hx CHB s/p PPM, COPD, 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, quit in 2015) recent admission 06/02-06/05/23 for Covid-19 treated with steroids + remdesivir, also treated with levofloxacin for Pseudomonas UTI re-admitted 06/09/23 for hypoxia acute hypoxic respiratory failure due to pneumonia, Covid-19, and COPD exacerbation - wean O2 as tolerated; maintain SaO2 while ambulating - steroids d/c'ed due to abd pain; continue nebs - cefepime + vancomycin d6/7, BCx negative, pneumococcal UAg negative, Legionella UAg pending, PCT + CRP low - d/c isolation precautions; pt 1st tested positive 05/31/23 paroxsymal AF - RC with metoprolol - AC with rivaroxaban GERD - Maalox prn, IV->PO PPI hypothyroidism - LT4 hx breast CA - anastrozole VTE ppx - rivaroxaban dispo - PT consult pending In my clinical judgment, the patient requires continued inpatient hospitalization for the following reasons: IV ABX, hypoxia Time Spent With Patient Time: Total time managing care of this patient today __40__ minutes. Quality Stroke Does the patient have a stroke diagnosis?: No VTE Prior VTE?: No VTE Risk Level:: Medical - moderate - high VTE Device Contraindication: Treatment Not Indicated VTE Drug Contraindication: N/A - Med Ordered
[2023-06-14 11:41] VITALS: BP 133/60; PULSE 60; RESP 18; TEMP 36.7; O2SAT 92
[2023-06-14] MEDS: polyethylene glycoL 3350 17 GM POWD.PACK PO (12:08)
[2023-06-14] MEDS: Sennosides/Docusate Sodium TABLET 2 TAB PO ×2 (12:08→20:21)
[2023-06-14] MEDS: Omeprazole 20 MG CAPSULE.DR PO (15:14)
[2023-06-14] MEDS: Acetaminophen 325 MG TABLET 650 MG PO ×2 (15:20→22:06)
--- NOTE | 2023-06-14 15:26 | MHC.CM.PN ---
This CM spoke with pts daughter Sandra who was interested in resources for in home care for when her mother is discharged home. This CM provided her with [facility], and [facility] agency numbers.
[2023-06-14 15:41] VITALS: BP 132/64; PULSE 64; RESP 16; TEMP 36.6; O2SAT 96
[2023-06-14 16:18] LABS: Vancomycin Random 13.7 mcg/mL (15-20)
--- NOTE | 2023-06-14 17:08 | PM.GICN ---
History of Present Illness Data of Consult Service Date: 06/14/23 Requesting physician: Dory Herr Primary Care Provider: MD BREANNE Head Reason for consult: Dysphagia 88 YF with paroxysmal atrial fibrillation anticoagulated with Xarelto, breast cancer s/p mastectomy on anastrozole, history of complete heart block with pacemaker in place, and COPD who was a former smoker who quit in 2016 (60 pack year history) admitted to [facility] [place] on 06/09/23 with generalized weakness, worsening cough, shortness of breath. Patient was recently admitted from 06/02-06/05 for COPD exacerbation and COVID-19 with acute hypoxemic respiratory failure treated with IV steroids and remdesivir and discharged on 3 days of prednisone and levaquin which she took as prescribed. Per pt, she completed prednisone 3 days [employer] and shortly after developed worsening symptoms. Pt was readmitted on 06/09/23 with hypoxia GI consulted for evaluation of dysphagia and post prandial upper abdominal pain. Pt complains of intermittent dysphagia for the past 2 days associated with intake of solid food (unable to recall the type of food she was eatng). yesterday morning after breakfast, pt noted upper abdominal pain radiating to the back it lasted 45 minutes. He Patient took Maalox with relief of her symptoms. Patient also complains of constipation and denies having a bowel movement since she was admitted on 06/09/2023. She is being treated with fiber, Senokot and MiraLax. 06/09/[address] SCAN SHOWED: 1. No CT evidence of pulmonary thromboembolism. 2. Emphysematous disease is noted with superimposed nonspecific bilateral lower lobar airspace disease and calcified as well as noncalcified sub-5 mm lung nodule within the right upper lobe. 3. Trace pericardial effusion. 4. Nonspecific soft tissue stranding around the spleen at left upper quadrant, but indeterminate etiology. Please correlate clinically. Dedicated follow-up CT scan of the abdomen and pelvis following administration of intravenous contrast may be considered for further clarification, if clinically appropriate. 5. Asymmetric soft tissue prominence along the inferior medial aspect of the right-sided breast implant, for which clinical and mammographic correlation as appropriate is recommended. Review of Systems Review of Systems: General: No fevers, malaise, unintentional weight loss. +generalized weakness HEENT: No sore throat, nasal congestion, rhinorrhea, sinus pain, ear pain Cardiovascular: No chest pain, palpitations, or leg edema Respiratory: +sob, +wheezing, +cough GI: +abd pain, +nausea. No vomiting, diarrhea, constipation, melena, hematochezia : No dysuria, hematuria, increased urinary frequency, decreased urinary output MSK: No myalgia, back pain Neuro: No headaches, focal weakness, paresthesias Skin: No rashes or lesions PMF Past Medical History Medical History Mild protein malnutrition Breast cancer COPD (chronic obstructive pulmonary disease) Paroxysmal atrial fibrillation Artificial cardiac pacemaker Complete heart block Surgical History Surgical History S/P mastectomy S/P cardiac pacemaker procedure Social History Social History Household Members: None [facility] Do you presently have visiting nurse or other home services: No Patient Tobacco Use Status: Former Tobacco user Tobacco use type: Cigarette Smoked in Last 30 Days: No e-Cigarette/Vaping Use: Former Use Use of substances other than those prescribed or required for medical reasons: No Advance Directives: Yes Advance Directives on File: Yes Advance Directives Date on File: 06/09/23 service: No Meds Allergies Allergy/AdvReac Type Severity Reaction Status Date / Time codeine AdvReac Unknown Verified 06/23/23 18:21 Active Medications: Current Medications Acetaminophen (Acetaminophen 325 Mg Tablet) 650 mg PO Q6H PRN PRN Reason: Pain, Mild (Pain Scale 1-3) Last Admin: 06/14/23 15:20 Dose: 650 mg Al Hydroxide/Mg Hydroxide (Magnesium Hydrox/Alum Hydrox 30 Ml Oral.Susp) 30 ml PO Q6H UBALDO Albuterol Sulfate (Albuterol Sulfate 90 Mcg 8 Gm Inhaler) 2 puff INHALE RQ4H PRN PRN Reason: Shortness of Breath/Wheezing Albuterol/Ipratropium (Albuterol/Iprat 2.5/0.5mg 3 Ml Ampul.Neb) 3 ml INHALE RQ4H WHILE AWAKE [facility] Last Admin: 06/14/23 16:01 Dose: Not Given Anastrozole (Anastrozole 1 Mg Tablet) 1 mg PO DAILY [facility] Last Admin: 06/14/23 08:00 Dose: 1 mg Atorvastatin Calcium (Atorvastatin Calcium 10 Mg Tablet) 10 mg PO DAILY [facility] Last Admin: 06/14/23 07:58 Dose: 10 mg Diphenhydramine HCl (Diphenhydramine Hcl 25 Mg Capsule) 25 mg PO BEDTIME [facility] Last Admin: 06/13/23 21:42 Dose: 25 mg Docusate Sodium (Docusate Sodium 100 Mg Capsule) 100 mg PO DAILY PRN PRN Reason: Constipation Last Admin: 06/12/23 20:35 Dose: 100 mg Guaifenesin (Guaifenesin 200 Mg/10 Ml 10 Ml Liquid) 10 ml PO Q4H [facility] Last Admin: 06/14/23 15:13 Dose: Not Given Cefepime HCl 2 gm/ Sodium (Chloride) 50 mls @ 100 mls/hr IV Q12H [facility] Last Admin: 06/14/23 15:15 Dose: 100 mls/hr Vancomycin HCl 1,250 mg/ (Sodium Chloride) 250 mls @ 166.667 mls/hr IV Q24H [facility] Last Infusion: 06/13/23 21:28 Dose: Infused Levothyroxine Sodium (Levothyroxine Sodium 88 Mcg Tablet) 88 mcg PO DAILY@0600 [facility] Last Admin: 06/14/23 05:28 Dose: 88 mcg Metoprolol Succinate (Metoprolol Succinate Er 25 Mg Tab.Er.24h) 25 mg PO DAILY [facility]; Protocol Last Admin: 06/14/23 07:58 Dose: 25 mg Omeprazole (Omeprazole 20 Mg Capsule.Dr) 20 mg PO BID@0630,1630 [facility] Last Admin: 06/14/23 15:14 Dose: 20 mg Ondansetron HCl (Ondansetron Hcl 4 Mg/2 Ml Vial) 4 mg IVPUSH Q8H PRN PRN Reason: Nausea and Vomiting Pharmacy Consult (Consult Rx Vancomycin Dosing) 1 each MISCELLANE DAILY PRN PRN Reason: Consult order Polyethylene Glycol (Polyethylene Glycol 3350 17 Gm Powd.Pack) 17 gm PO DAILY [facility] Last Admin: 06/14/23 12:08 Dose: 17 gm Rivaroxaban (Rivaroxaban 15 Mg Tablet) 15 mg PO BEDTIME [facility] Last Admin: 06/13/23 21:42 Dose: 15 mg Senna/Docusate Sodium (Sennosides/Docusate Sodium Tablet) 2 tab PO BID [facility] Last Admin: 06/14/23 12:08 Dose: 2 tab Sodium Chloride (0.9 % Sodium Chloride Flush 3 Ml Syringe) 3 ml IVFLUSH QSHIFT [facility] Last Admin: 06/14/23 08:00 Dose: 3 ml Vitamin D (Cholecalciferol (Vitamin D3) 25 Mcg Tablet) 25 mcg PO DAILY [facility] Last Admin: 06/14/23 07:57 Dose: 25 mcg Zinc Sulfate (Zinc Sulfate 220 Mg Capsule) 220 mg PO DAILY [facility] Last Admin: 06/14/23 07:58 Dose: 220 mg Home Medications Medication Instructions Recorded Confirmed Last Taken Type anastrozole 1 mg tablet 1 mg PO DAILY 06/02/23 06/09/23 06/09/23 09:00 History atorvastatin 10 mg tablet 10 mg PO DAILY 06/02/23 06/09/23 06/09/23 09:00 History cefadroxil 500 mg capsule 500 mg PO BID 06/02/23 06/09/23 06/09/23 09:00 History levothyroxine 88 mcg tablet 88 mcg PO DAILY@0600 06/02/23 06/09/23 06/09/23 06:00 History metoprolol succinate 25 mg 25 mg PO DAILY 06/02/23 06/09/23 06/09/23 09:00 History tablet,extended release 24 hr rivaroxaban 15 mg tablet (Xarelto) 15 mg PO BEDTIME 06/02/23 06/09/23 Unknown History acetaminophen 650 mg 1,300 mg PO BEDTIME 06/09/23 06/09/23 Unknown History tablet,extended release cholecalciferol (vitamin D3) 25 25 mcg PO DAILY 06/09/23 06/09/23 06/09/23 09:00 History mcg (1,000 unit) tablet (Vitamin D3) diphenhydramine HCl 25 mg capsule 25 mg PO BEDTIME 06/09/23 06/09/23 Unknown History (Benadryl) zinc gluconate 50 mg tablet 50 mg PO DAILY 06/09/23 06/09/23 06/09/23 09:00 History Physical Exam Vital Signs: Vital Signs: Last Vital Signs Temp 97.9 F 06/14/23 15:41 Pulse 64 06/14/23 15:41 Resp 16 06/14/23 15:41 BP 132/64 06/14/23 15:41 Pulse Ox 96 06/14/23 15:41 O2 Del Method Nasal Cannula 06/14/23 15:41 O2 Flow Rate 2 06/14/23 15:41 BMI result Body Mass Index 16.5 Const: General: no acute distress Nutritional Appearance: underweight Orientation/consciousness: patient oriented x3 Limitations: physical limitations HEENT: Head: Yes normal to inspection Ears: hearing grossly normal bilaterally Eyes: Sclerae: sclerae normal Pupils: Equal, round and reactive pupils present Neck: Neck: Yes normal visual inspection Chest: Chest palpation & inspection: normal inspection of the chest Resp: Effort & Inspection: decreased respiratory effort Auscultation: other (scattered expiratory rales) Cardio: Palpation: normal PMI Rate: regular rate Rhythm: regular rhythm Heart sounds: S1 normal heart sound present, S2 normal heart sound present and no murmurs GI: Palpation (GI): Soft to palpation, nontender and No hepatosplenomegaly present Auscultation: normal bowel sounds Rectal Exam - Female: deferred Skin: General skin exam: no rashes or lesions noted Neuro: General: patient oriented x3, gait normal and moves all extremities Cranial nerves: Yes Equal, round and reactive pupils present Psych: Appearance: grossly normal Mental Status: mental status grossly normal Results Labs 06/18/23 07:45 06/16/23 06:45 Labs: Short CBC 06/14/23 Range/Units 07:05 WBC 18.3 H (4.8-10.8) X10*3/uL Hgb 12.5 (12.0-16.0) g/dl Hct 38.0 (37.0-47.0) % Plt Count 192 (160-400) X10*3/uL BMP 06/14/23 07:05 Sodium 137 Potassium 4.0 Chloride 105 Carbon Dioxide 24 BUN 17 H Creatinine 0.60 Calcium 8.3 L D Liver Function 06/14/23 Range/Units 07:05 Total Bilirubin 0.6 (0.0-1.0) mg/dL AST 26 (5-31) U/L ALT 19 (0-31) U/L Alkaline Phosphatase 55 (39-117) U/L Albumin 2.9 L (3.5-5.0) g/dL Microbiology Microbiology Results: Microbiology 06/10/23 13:08 Sputum - Expectorated Gram Stain - Final 06/10/23 13:08 Sputum - Expectorated Sputum Culture - Final 06/09/23 17:26 Blood - Venous Blood Culture - Preliminary No growth after 48 hours. 06/09/23 17:28 Blood - Venous Blood Culture - Preliminary No growth after 48 hours. 06/09/23 Unknown Urine clean catch - Urine heard top Urine Culture - Final No growth. Assessment and Plan (1) Upper abdominal pain: Status: Acute (2) Oropharyngeal dysphagia: Status: Acute Plan 88 YF with paroxysmal atrial fibrillation anticoagulated with Xarelto, breast cancer s/p mastectomy on anastrozole, history of complete heart block with pacemaker in place, and COPD (former smoker, quit in 2016 after 60 pack year history) admitted to [facility] [place] on 06/02 to 06/05/23 with COVID infection associated with generalized weakness, worsening cough, shortness of breath and hypoxia. Pt was readmitted on 06/09/23 with hypoxia and is on 2 L of oxygen by [place] [facility] consulted for evaluation of dysphagia and post prandial upper abdominal pain. Dysphagia likely due to esophageal motility disorder. Esophageal stricture or ring is less likely since her symptoms are intermittent. Abdominal pain can be due to peptic ulcer disease, gastritis or pancreatitis or mesenteric ischemia RECOMMENDATIONS: 1. Agree with continuing Omeprazole 20 mg twice daily 2. Change Maalox to Q 6 hrly instead of prn 3. Further evaluation with Barium swallow with UGI for evaluation dysphagia and abdominal pain (since pt is at high risk for EGD due to hypoxia, recent COVID infection, advanced age and comorbidities) 4. Check lipase 5. Abd CT scan with IV contrast for evaluation of fat stranding noted on Chest CT scan performed on admission. Time Spent With Patient Time: Total time managing care of this patient today ____ minutes. Procedures Date of Service Date of Service: 06/28/23
--- NOTE | 2023-06-14 18:40 | MHC.SL.SWA ---
Speech Pathologist Impression: Risk of Aspiration Due to: History of Pneumonia Dysphasia Diet Status: Liquid Consistency and Strategies for Safe Swallow: Liquid Intake Recommendation: Thin Liquid Intake Strategies: Unrestricted Solid Food Consistency: Dietary Recommendations: Chopped/Advanced (NDD3) Additional Modifications to Solid Foods: Avoid acidic or spicy foods/liquids. Remain seated upright at least 30 minutes after meal. When reclined/resting keep head of bed elevated at least 20 degrees. Oral Medication Intake: Whole with Puree Please contact the pharmacy regarding appropriate crushable or liquid drug formulations that are available whenever modified delivery is recommended. Compensatory Strategies and Precautions to be Taken for Safe Swallow: Sitting Upright (90 deg) Liquids from Cup Liquids from Straw Small Bites and Sips Alternate Liquids/Solids Supervision While Eating and Drinking for Safe Swallow: None Needed Foods to Avoid: Avoid acidic or spicy foods/liquids. Swallowing Recommended Treatments: Compens. Strategy Educat. Recommendation for Speech: Inpatient Speech Therapy Comment: Patient presents with oral motor and swallow function WFL, however has consistent complaint about Globus sensation at chest level after swallow, and is fearful of eating more advanced solids due to recent episode of choking (e.g. felt food was stuck in esophagus after swallow, coughed food back up). Recommend DOWNGRADE diet to CHOPPED/ADVANCED (NDD3) for ease of consumption, and continue with thin liquids, pills crushed or whole in puree, depending on patient's level of comfort. Daughter requesting GI consult which was recommended to . MD RD notified of recommendations by nikita collins RN in person. TELEVISION CAMERAMAN to f/u 1-2 for toleration of diet. Frequency/Duration: Date Range for Service Req: Timeline to reassess: Centrifugal Casting Machine Tender Clinican/Clinical Fellow: No Supervisory Statement: I have reviewed and agree with the student/clinical fellow's documentation: N/A Speech Language Pathologist: Rachana Rowland M.A., CCC-TELEVISION [employer]ER[employer]
[2023-06-14 19:53] VITALS: BP 125/60; PULSE 62; RESP 16; TEMP 36.4; O2SAT 96
[2023-06-14] MEDS: diphenhydrAMINE HCL 25 MG CAPSULE PO (20:20)
[2023-06-14] MEDS: Rivaroxaban 15 MG TABLET PO (20:20)
[2023-06-15] VITALS (7 sets, daily range): BP systolic 128–142; BP diastolic 50–69; PULSE 60–82; RESP 16–20; TEMP 36.1–37.1; O2SAT 90–96
[2023-06-15] MEDS: Levothyroxine Sodium 88 MCG TABLET PO (05:19)
[2023-06-15] MEDS: Omeprazole 20 MG CAPSULE.DR PO ×2 (05:19→16:34)
[2023-06-15 06:51] LABS: MANUAL DIFF FLAG NO
[2023-06-15 06:55] LABS: Basophils Percent Auto 0.1 % (0-2); Eosinophils Absolute Auto 0.1 X10*3/uL (0.0-0.4); Eosinophils Percent Auto 0.5 % (0-4); Hematocrit 40.5 % (37.0-47.0); Hemoglobin 13.4 g/dl (12.0-16.0); Imm Gran Abs Auto 0.06 X10*3/uL (0.00-0.03); Imm Gran Pct Auto 0.5 % (0.0-0.4); Lymphocytes Absolute Auto 0.4 X10*3/uL (1.2-4.9); Lymphocytes Percent Auto 3.4 % (20-40); Mean Corpuscular HGB Conc 33.1 g/dl (31.0-35.0); Mean Corpuscular Hemoglobin 31.1 pg (27.0-33.0); Mean Platelet Volume 9.9 fL (9.4-12.3); Monocytes Absolute Auto 0.7 X10*3/uL (0.1-1.2); Monocytes Percent Auto 5.6 % (2-11); Neutrophils Absolute Auto 10.9 x10*3/uL (2.0-8.3); Neutrophils Percent Auto 89.9 % (45-73); Platelet Count 207 X10*3/uL (160-400); Red Blood Count 4.31 X10*6/uL (4.20-5.50); Red Cell Distribution Width 14.3 % (11.0-16.0); White Blood Count 12.1 X10*3/uL (4.8-10.8)
[2023-06-15 07:15] LABS: Alanine Aminotransferase 27 U/L (0-31); Alkaline Phosphatase 62 U/L (39-117); Anion Gap 13 (12-20); Aspartate Amino Transferase 28 U/L (5-31); Bilirubin Total 0.8 mg/dL (0.0-1.0); Blood Urea Nitrogen 14 mg/dL (9-16); Carbon Dioxide 27 mmol/L (22-29); Chloride 102 mmol/L (96-108); Creatinine Clr Calc Pharmacy 47.8; Estimated Glomerular Filt Rate > 60; Glucose Fasting 71 mg/dL (60-99); Potassium 4.1 mmol/L (3.3-5.1); Sodium 138 mmol/L (135-145); Total Protein 5.4 g/dL (6.5-8.0)
[2023-06-15 08:04] LABS: Lipase 21 U/L (8-78)
[2023-06-15] MEDS: iohexoL 350 MG/ML 100 ML INFUS..BTL IV (08:14)
[2023-06-15] MEDS: Cholecalciferol (Vitamin D3) 25 MCG TABLET PO (09:25)
[2023-06-15] MEDS: Zinc Sulfate 220 MG CAPSULE PO (09:25)
[2023-06-15] MEDS: Magnesium Hydrox/Alum Hydrox 30 ML ORAL.SUSP PO ×2 (09:25→16:34)
[2023-06-15] MEDS: Anastrozole 1 MG TABLET PO (09:25)
[2023-06-15] MEDS: Atorvastatin Calcium 10 MG TABLET PO (09:25)
[2023-06-15] MEDS: Sennosides/Docusate Sodium TABLET 2 TAB PO (09:26)
[2023-06-15] MEDS: Metoprolol Succinate ER 25 MG TAB.ER.24H PO (09:26)
--- NOTE | 2023-06-15 11:44 | MHC.CLN ---
F/U PO INTAKE IMPROVED 75-100% X 4 MEALS DIET RX: CHOPPED-APPROPRIATE PT C/O CONSTIPATION PT RECEIVING FORTIFIED ICE CREAM TID WITH MEALS TO INCREASE KCALS ICE CREAM PROVIDES 810KCALS, 27G PROTEIN WITH 100% ACCEPTANCE CONTINUE TO MONITOR PO INTAKE CLOSELY
--- NOTE | 2023-06-15 12:17 | MHC.SL.SWA ---
Speech Pathologist Impression: Risk of aspiration Risk of Aspiration Due to: History of Pneumonia Dysphasia Diet Status: No changes at this time. Liquid Consistency and Strategies for Safe Swallow: Liquid Intake Recommendation: Thin Liquid Intake Strategies: Small Sips Solid Food Consistency: Dietary Recommendations: Chopped/Advanced (NDD3) Additional Modifications to Solid Foods: Pt appears to be on safest, least restrictive diet textures. Pt expressed a preference for chopped food, continue w/ thin liquids, pills whole in puree. Ensure periodic supervision to monitor tolerance as well as general aspiration precautions. Further ST intervention is no longer indicated. Please re-refer with any changes or further concern. Oral Medication Intake: Whole with Puree Please contact the pharmacy regarding appropriate crushable or liquid drug formulations that are available whenever modified delivery is recommended. Compensatory Strategies and Precautions to be Taken for Safe Swallow: Sitting Upright (90 deg) Double Swallow Small Bites and Sips Alternate Liquids/Solids Rate of Ingestion Change Avoid Specific Foods Supervision While Eating and Drinking for Safe Swallow: Intermittent Supervision Foods to Avoid: Avoid acidic or spicy foods/liquids. Swallowing Recommended Treatments: Compens. Strategy Educat. Recommendation for Speech: D/C Survey Technician Clinican/Clinical Fellow: No Supervisory Statement: I have reviewed and agree with the student/clinical fellow's documentation: N/A Speech Language Pathologist: Megan Palacios M.A., CCC-[employer]
--- NOTE | 2023-06-15 14:49 | HO.PM.IMPN ---
Subjective Subjective Date of Service: 06/15/23 Interval History: constipation resolved still has difficulty swallowing with globus sensation dyspnea improved Review of Systems Review of Systems: Yes all other systems are reviewed and are negative Physical Exam Vital Signs: Vital Signs: Last Vital Signs Temp 97.0 F 06/15/23 12:00 Pulse 66 06/15/23 12:00 Resp 19 06/15/23 12:00 BP 132/63 06/15/23 12:00 Pulse Ox 92 06/15/23 12:00 O2 Del Method Nasal Cannula 06/15/23 12:00 O2 Flow Rate 2 06/15/23 12:00 BMI result Body Mass Index 16.5 Gen: in no acute distress HEENT: sclera anicteric, moist mucus membranes Neck: supple Lungs: somewhat diminished Heart: regular rate and rhythm, no murmurs Abd: soft, non-tender, non-distended Ext: no edema Skin: warm/well-perfused Neuro: alert and oriented x3, no focal findings Psych: appropriate affect Objective Data Active Medications Acetaminophen (Acetaminophen 325 Mg Tablet) 650 mg PO Q6H PRN PRN Reason: Pain, Mild (Pain Scale 1-3) Last Admin: 06/14/23 22:06 Dose: 650 mg Documented By: KATEY Al Hydroxide/Mg Hydroxide (Magnesium Hydrox/Alum Hydrox 30 Ml Oral.Susp) 30 ml PO Q6H [facility] Last Admin: 06/15/23 09:25 Dose: 30 ml Documented By: LYNNE Albuterol Sulfate (Albuterol Sulfate 90 Mcg 8 Gm Inhaler) 2 puff INHALE RQ4H PRN PRN Reason: Shortness of Breath/Wheezing Albuterol/Ipratropium (Albuterol/Iprat 2.5/0.5mg 3 Ml Ampul.Neb) 3 ml INHALE RQ4H WHILE AWAKE [facility] Last Admin: 06/15/23 11:42 Dose: Not Given Documented By: DEBBY Non-Admin Reason: Patient Refused Anastrozole (Anastrozole 1 Mg Tablet) 1 mg PO DAILY [facility] Last Admin: 06/15/23 09:25 Dose: 1 mg Documented By: LYNNE Atorvastatin Calcium (Atorvastatin Calcium 10 Mg Tablet) 10 mg PO DAILY [facility] Last Admin: 06/15/23 09:25 Dose: 10 mg Documented By: LYNNE Diphenhydramine HCl (Diphenhydramine Hcl 25 Mg Capsule) 25 mg PO BEDTIME [facility] Last Admin: 06/14/23 20:20 Dose: 25 mg Documented By: KATEY Docusate Sodium (Docusate Sodium 100 Mg Capsule) 100 mg PO DAILY PRN PRN Reason: Constipation Last Admin: 06/12/23 20:35 Dose: 100 mg Documented By: GEORGE Guaifenesin (Guaifenesin 200 Mg/10 Ml 10 Ml Liquid) 10 ml PO Q4H PRN PRN Reason: cough Cefepime HCl 2 gm/ Sodium (Chloride) 50 mls @ 100 mls/hr IV Q12H [facility] Last Infusion: 06/15/23 06:11 Dose: Infused Documented By: KATEY Vancomycin HCl 1,250 mg/ (Sodium Chloride) 250 mls @ 166.667 mls/hr IV Q24H [facility] Last Infusion: 06/14/23 21:58 Dose: Infused Documented By: KATEY Levothyroxine Sodium (Levothyroxine Sodium 88 Mcg Tablet) 88 mcg PO DAILY@0600 [facility] Last Admin: 06/15/23 05:19 Dose: 88 mcg Documented By: KATEY Metoprolol Succinate (Metoprolol Succinate Er 25 Mg Tab.Er.24h) 25 mg PO DAILY [facility]; Protocol Last Admin: 06/15/23 09:26 Dose: 25 mg Documented By: LYNNE Omeprazole (Omeprazole 20 Mg Capsule.Dr) 20 mg PO BID@0630,1630 [facility] Last Admin: 06/15/23 05:19 Dose: 20 mg Documented By: KATEY Ondansetron HCl (Ondansetron Hcl 4 Mg/2 Ml Vial) 4 mg IVPUSH Q8H PRN PRN Reason: Nausea and Vomiting Pharmacy Consult (Consult Rx Vancomycin Dosing) 1 each MISCELLANE DAILY PRN PRN Reason: Consult order Polyethylene Glycol (Polyethylene Glycol 3350 17 Gm Powd.Pack) 17 gm PO DAILY PRN PRN Reason: constipation Rivaroxaban (Rivaroxaban 15 Mg Tablet) 15 mg PO BEDTIME [facility] Last Admin: 06/14/23 20:20 Dose: 15 mg Documented By: KATEY Senna/Docusate Sodium (Sennosides/Docusate Sodium Tablet) 2 tab PO BID PRN PRN Reason: Constipation Last Admin: 06/15/23 09:26 Dose: 2 tab Documented By: LYNNE Sodium Chloride (0.9 % Sodium Chloride Flush 3 Ml Syringe) 3 ml IVFLUSH QSHIFT [facility] Last Admin: 06/15/23 12:44 Dose: 3 ml Documented By: LYNNE Vitamin D (Cholecalciferol (Vitamin D3) 25 Mcg Tablet) 25 mcg PO DAILY [facility] Last Admin: 06/15/23 09:25 Dose: 25 mcg Documented By: LYNNE Zinc Sulfate (Zinc Sulfate 220 Mg Capsule) 220 mg PO DAILY [facility] Last Admin: 06/15/23 09:25 Dose: 220 mg Documented By: LYNNE Labs 06/15/23 06:29 06/15/23 06:29 Labs: Laboratory Results - last 24 hr 06/14/23 06/15/23 15:34 06:29 MCV 94.0 MCH 31.1 MCHC 33.1 RDW 14.3 Plt Count 207 MPV 9.9 Immature Gran % (Auto) 0.5 H Neut % (Auto) 89.9 H Lymph % (Auto) 3.4 L [place] % (Auto) 5.6 Eos % (Auto) 0.5 Baso % (Auto) 0.1 Lymph # (Auto) 0.4 L [place] # (Auto) 0.7 Eos # (Auto) 0.1 Baso # (Auto) 0.0 Abs Immat Gran (auto) 0.06 H Absolute Neuts (auto) 10.9 H Absolute Nucleated RBC 0.000 Nucleated RBC % (auto) 0.0 Anion Gap 13 Estim Creat Clear Calc 47.8 Estimated GFR > 60 Fasting Glucose 71 Calcium 8.0 L Total Bilirubin 0.8 AST 28 ALT 27 Alkaline Phosphatase 62 Total Protein 5.4 L Albumin 3.0 L Lipase 21 Random Vancomycin 13.7 L Impressions Abdomen/Pelvis CT 06/15/23 08:11 IMPRESSION: Splenic infarcts. Mild fat stranding surrounding the inferior spleen similar to recent chest CTA. Atherosclerotic disease. Fleischner guidelines were followed. Upper GI/Barium Swallow X-Ray 06/15/23 08:35 IMPRESSION: Limited exam due to patient mobility. New mucosal irregularity of the esophagus suggestive of esophagitis. Abnormal esophageal peristalsis with tertiary contractions. Temporary stasis of the barium tablet at the GE junction. Assessment for reflux limited as described above but no reflux is seen. Stomach and duodenum are normal-appearing. Microbiology Microbiology Results: Microbiology 06/09/23 17:26 Blood Culture - Final Blood - Venous No growth after 5 days. 06/09/23 17:28 Blood Culture - Final Blood - Venous No growth after 5 days. 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, quit in 2015) recent admission 06/02-06/05/23 for Covid-19 treated with steroids + remdesivir, also treated with levofloxacin for Pseudomonas UTI re-admitted 06/09/23 for hypoxia acute hypoxic respiratory failure due to pneumonia, Covid-19, and COPD exacerbation - wean O2 as tolerated; will need home O2 evaluation prior to discharge - steroids d/c'ed due to abd pain; continue nebs- Rx nebulizer + solution for home - cefepime + vancomycin , BCx negative, pneumococcal UAg negative, Legionella UAg pending, PCT + CRP low - d/c'ed isolation precautions; 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 Quality Stroke Does the patient have a stroke diagnosis?: No VTE Prior VTE?: No VTE Risk Level:: Medical - moderate - high VTE Device Contraindication: Treatment Not Indicated VTE Drug Contraindication: N/A - Med Ordered
--- NOTE | 2023-06-15 14:57 | MHC.CM.PN ---
EMR REVIEWED, PT NEEDING O2 INTERMITTENTLY, PLAN FOR GI WORK UP AND WILL DC W/NEW NEBULIZER (RESPIRATORY TO SET UP), CM WILL CONT TO FOLLOW D/C NEEDS.
--- NOTE | 2023-06-15 18:10 | PM.HEMONCCN ---
Subjective - Subjective Chief complaint: possible splenic infarct Patient: new to practice Consult date: 06/15/23 Primary Care Provider: Dinh Mcconnell MD HPI - Consult Narrative Reason for consult: splenic infarct Narrative: Urszula Peter is a 88 year old female admitted a week ago for covid pneumonia and uti on xarelto for paroxysmal atrial fibrillation has incidental finding of wedge shaped defect in spleen consistent with infarct of unknown duration. She has had epigastric pain from esophagitis and gi is invoved but no splenic pain. She was free of spleen discomfort no my esam today. Review of Systems - Constitutional Reports body ache(s) - Cardiovascular Reports fast heart rate - Gastrointestinal Reports dyspepsia - Genitourinary Reports other - Neurologic Reports weakness, Denies loss of vision, Denies numbness, Denies tingling PMFSH Medical History: Medical History (Last Reviewed 06/09/23 @ 16:53 by KIRSTIN Galeano) Artificial cardiac pacemaker Breast cancer Complete heart block COPD (chronic obstructive pulmonary disease) Paroxysmal atrial fibrillation Surgical History: Surgical History (Last Reviewed 06/09/23 @ 16:53 by KIRSTIN Galeano) S/P cardiac pacemaker procedure S/P mastectomy Social History: Social History (Last Reviewed 06/09/23 @ 16:53 by KIRSTIN Galeano) Living Situation History: Household Members: None Housing: Condominium Do you presently have visiting nurse or other home services: No Alcohol History Details: 1. How often do you have a drink containing alcohol?: a. Never AUDIT-C Alcohol total score: 0 Currently Displaying Signs/Symptoms of Alcohol Withdrawal: No Tobacco History: Patient Tobacco Use Status: Former Tobacco user Tobacco use type: Cigarette Smoked in Last 30 Days: No e-Cigarette/Vaping Use: Former Use Patient Interested in Nicotine Replacement: No Substance Use History: Use of substances other than those prescribed or required for medical reasons: No Currently Displaying Signs/Symptoms of Drug Intoxication Withdrawal: No Any prior treatment program specific to substance use: No Domestic Abuse History: Have you been hit, kicked, punched, or otherwise hurt by someone within the past year? If so, by whom?: No Do you feel safe in your current relationship?: Yes Is there a partner from a previous relationship who is making you feel unsafe now?: No Are you made to feel afraid or neglected: No Advance Directives: Advance Directives: Yes Advance Directives Information Provided: Yes Advance Directives Information Provided comment: Daughter Sandra has on phone Advance Directives on File: No Advance Directives Date on File: 06/09/23 Homicidal Assessment: Do you have thoughts of harming others: None Do you have a plan to hurt others: No Plan Nutrition Assessment: Recently lost weight without trying: No Eating poorly because of decreased appetite: Yes Nutrition Risks: No Nutritional Risk Patient : No : No Poor oral hygiene: No Occupation Assessmet: service: No Home Medications and Allergies Current Medications: Current Medications Acetaminophen (Acetaminophen 325 Mg Tablet) 650 mg PO Q6H PRN PRN Reason: Pain, Mild (Pain Scale 1-3) Last Admin: 06/14/23 22:06 Dose: 650 mg Al Hydroxide/Mg Hydroxide (Magnesium Hydrox/Alum Hydrox 30 Ml Oral.Susp) 30 ml PO Q6H [facility] Last Admin: 06/15/23 16:34 Dose: 30 ml Albuterol Sulfate (Albuterol Sulfate 90 Mcg 8 Gm Inhaler) 2 puff INHALE RQ4H PRN PRN Reason: Shortness of Breath/Wheezing Albuterol/Ipratropium (Albuterol/Iprat 2.5/0.5mg 3 Ml Ampul.Neb) 3 ml INHALE RQ4H WHILE AWAKE [facility] Last Admin: 06/15/23 15:05 Dose: Not Given Anastrozole (Anastrozole 1 Mg Tablet) 1 mg PO DAILY [facility] Last Admin: 06/15/23 09:25 Dose: 1 mg Atorvastatin Calcium (Atorvastatin Calcium 10 Mg Tablet) 10 mg PO DAILY [facility] Last Admin: 06/15/23 09:25 Dose: 10 mg Diphenhydramine HCl (Diphenhydramine Hcl 25 Mg Capsule) 25 mg PO BEDTIME [facility] Last Admin: 06/14/23 20:20 Dose: 25 mg Docusate Sodium (Docusate Sodium 100 Mg Capsule) 100 mg PO DAILY PRN PRN Reason: Constipation Last Admin: 06/12/23 20:35 Dose: 100 mg Guaifenesin (Guaifenesin 200 Mg/10 Ml 10 Ml Liquid) 10 ml PO Q4H PRN PRN Reason: cough Cefepime HCl 2 gm/ Sodium (Chloride) 50 mls @ 100 mls/hr IV Q12H [facility] Last Infusion: 06/15/23 17:24 Dose: Infused Vancomycin HCl 1,250 mg/ (Sodium Chloride) 250 mls @ 166.667 mls/hr IV Q24H [facility] Last Admin: 06/15/23 17:20 Dose: 166.67 mls/hr Levothyroxine Sodium (Levothyroxine Sodium 88 Mcg Tablet) 88 mcg PO DAILY@0600 [facility] Last Admin: 06/15/23 05:19 Dose: 88 mcg Metoprolol Succinate (Metoprolol Succinate Er 25 Mg Tab.Er.24h) 25 mg PO DAILY [facility]; Protocol Last Admin: 06/15/23 09:26 Dose: 25 mg Omeprazole (Omeprazole 20 Mg Capsule.Dr) 20 mg PO BID@0630,1630 [facility] Last Admin: 06/15/23 16:34 Dose: 20 mg Ondansetron HCl (Ondansetron Hcl 4 Mg/2 Ml Vial) 4 mg IVPUSH Q8H PRN PRN Reason: Nausea and Vomiting Pharmacy Consult (Consult Rx Vancomycin Dosing) 1 each MISCELLANE DAILY PRN PRN Reason: Consult order Polyethylene Glycol (Polyethylene Glycol 3350 17 Gm Powd.Pack) 17 gm PO DAILY PRN PRN Reason: constipation Rivaroxaban (Rivaroxaban 15 Mg Tablet) 15 mg PO BEDTIME [facility] Last Admin: 06/14/23 20:20 Dose: 15 mg Senna/Docusate Sodium (Sennosides/Docusate Sodium Tablet) 2 tab PO BID PRN PRN Reason: Constipation Last Admin: 06/15/23 09:26 Dose: 2 tab Sodium Chloride (0.9 % Sodium Chloride Flush 3 Ml Syringe) 3 ml IVFLUSH QSHIFT [facility] Last Admin: 06/15/23 17:20 Dose: 3 ml Vitamin D (Cholecalciferol (Vitamin D3) 25 Mcg Tablet) 25 mcg PO DAILY [facility] Last Admin: 06/15/23 09:25 Dose: 25 mcg Zinc Sulfate (Zinc Sulfate 220 Mg Capsule) 220 mg PO DAILY [facility] Last Admin: 06/15/23 09:25 Dose: 220 mg Home Medications Medication Instructions Recorded Confirmed Type anastrozole 1 mg tablet 1 mg PO DAILY 06/02/23 06/09/23 History atorvastatin 10 mg tablet 10 mg PO DAILY 06/02/23 06/09/23 History cefadroxil 500 mg capsule 500 mg PO BID 06/02/23 06/09/23 History levothyroxine 88 mcg tablet 88 mcg PO DAILY@0600 06/02/23 06/09/23 History metoprolol succinate 25 mg 25 mg PO DAILY 06/02/23 06/09/23 History tablet,extended release 24 hr rivaroxaban 15 mg tablet (Xarelto) 15 mg PO BEDTIME 06/02/23 06/09/23 History acetaminophen 650 mg 1,300 mg PO BEDTIME 06/09/23 06/09/23 History tablet,extended release cholecalciferol (vitamin D3) 25 25 mcg PO DAILY 06/09/23 06/09/23 History mcg (1,000 unit) tablet (Vitamin D3) diphenhydramine HCl 25 mg capsule 25 mg PO BEDTIME 06/09/23 06/09/23 History (Benadryl) zinc gluconate 50 mg tablet 50 mg PO DAILY 06/09/23 06/09/23 History Allergies Allergy/AdvReac Type Severity Reaction Status Date / Time codeine AdvReac Unknown Verified 06/09/23 11:06 Physical Exam Vital signs: Vital Signs Temp 97.1 F 06/15/23 16:00 Pulse 68 06/15/23 16:00 Resp 16 06/15/23 16:00 BP 142/69 H 06/15/23 16:00 Pulse Ox 96 06/15/23 16:00 O2 Del Method Nasal Cannula 06/15/23 16:00 O2 Flow Rate 2 06/15/23 16:00 Intake & Output 06/14/23 06/15/23 06/15/23 18:59 06:59 18:59 Intake Total 63.889 / 4581.846 5860.111 / 1070.000 470 / 470 Balance 63.889 / 9232.582 4010.111 / 1070.000 470 / 470 Intake: Intake, Oral Amount 720 / 720 420 / 420 Intake, IV Amount 63.889 / 350.000 286.111 / 350.000 50 / 50 cefEPime HCl 2 gm In 0.9 % 50 / 100 50 / 100 50 / 50 Sodium Chloride 50 ml @ 100 mls /hr IV Q12H [facility] Rx#:[id number] vancomycin HCL 1,250 mg In 0.9 13.889 / 250.000 236.111 / 250.000 % Sodium Chloride 250 ml @ 166. 667 mls/hr IV Q24H [facility] Rx#: [id number] Other: Meal Refused No No NPO No No Breakfast % Eaten 100% Lunch % Eaten 75% 100% Number of Unmeasured Voids 1 1 Urine Bathroom Bathroom Bathroom Urine Color Yellow Yellow Stool Bathroom Stool Amount Moderate Stool Color Brown Weight 45.1 kg - Constitutional Present: no acute distress - Routine HEENT Exam Head: Present: atraumatic, normal inspection ENT: Present: normal exam - Routine Neck Exam Present: supple - Routine Respiratory Exam Present: decreased breath sounds - Routine Cardiovascular Exam Cardiovascular: Present: RRR, S1, S2 - Routine Abdominal Exam Present: diminished bowel sounds - Routine Extremities Exam Present: full ROM Hem/Onc Consult Result - Labs CBC & Chem 7: 06/15/23 06:29 06/15/23 06:29 Labs: Short CBC 06/15/23 Range/Units 06:29 WBC 12.1 H (4.8-10.8) X10*3/uL Hgb 13.4 (12.0-16.0) g/dl Hct 40.5 (37.0-47.0) % Plt Count 207 (160-400) X10*3/uL BMP 06/15/23 06:29 Sodium 138 Potassium 4.1 Chloride 102 Carbon Dioxide 27 BUN 14 Creatinine 0.59 Calcium 8.0 L Liver Function 06/15/23 Range/Units 06:29 Total Bilirubin 0.8 (0.0-1.0) mg/dL AST 28 (5-31) U/L ALT 27 (0-31) U/L Alkaline Phosphatase 62 (39-117) U/L Albumin 3.0 L (3.5-5.0) g/dL Assessment and Plan Patient Active problem list reviewed?: Yes (1) Splenic infarct Status: Acute Assessment and plan: It is a possible infarct. She is fully anticoagulated with xarelto. Would consider HIT if platelets fall and she has been exposed to heparin but she seem not to have been. She i asymptomatic. I recommend continuing xarelto. I would observe closely for additional infarcts and add aspirin 81 mg po daily with food and proton pump inhibitor. Will follow. - Time Spent With Patient Time Spent with Patient (in minutes): 30
[2023-06-15] MEDS: Acetaminophen 325 MG TABLET 650 MG PO (21:40)
[2023-06-15] MEDS: diphenhydrAMINE HCL 25 MG CAPSULE PO (21:41)
[2023-06-15] MEDS: Rivaroxaban 15 MG TABLET PO (21:42)
[2023-06-16] VITALS (7 sets, daily range): BP systolic 116–143; BP diastolic 60–78; PULSE 60–81; RESP 17–22; TEMP 36.1–37.1; O2SAT 86–97
[2023-06-16] MEDS: Acetaminophen 325 MG TABLET 650 MG PO ×2 (04:13→10:17)
[2023-06-16] MEDS: Omeprazole 20 MG CAPSULE.DR PO ×2 (06:16→16:15)
[2023-06-16] MEDS: Levothyroxine Sodium 88 MCG TABLET PO (06:16)
[2023-06-16 06:54] LABS: MANUAL DIFF FLAG NO
[2023-06-16 06:55] LABS: Basophils Percent Auto 0.1 % (0-2); Eosinophils Absolute Auto 0.4 X10*3/uL (0.0-0.4); Eosinophils Percent Auto 3.2 % (0-4); Hematocrit 39.6 % (37.0-47.0); Hemoglobin 13.2 g/dl (12.0-16.0); Imm Gran Abs Auto 0.05 X10*3/uL (0.00-0.03); Imm Gran Pct Auto 0.5 % (0.0-0.4); Lymphocytes Absolute Auto 0.4 X10*3/uL (1.2-4.9); Lymphocytes Percent Auto 3.9 % (20-40); Mean Corpuscular HGB Conc 33.3 g/dl (31.0-35.0); Mean Corpuscular Hemoglobin 31.5 pg (27.0-33.0); Mean Corpuscular Volume 94.5 fL (80.0-98.0); Mean Platelet Volume 9.3 fL (9.4-12.3); Monocytes Absolute Auto 0.6 X10*3/uL (0.1-1.2); Monocytes Percent Auto 5.6 % (2-11); Neutrophils Absolute Auto 9.4 x10*3/uL (2.0-8.3); Neutrophils Percent Auto 86.7 % (45-73); Platelet Count 201 X10*3/uL (160-400); Red Blood Count 4.19 X10*6/uL (4.20-5.50); Red Cell Distribution Width 14.1 % (11.0-16.0); White Blood Count 10.9 X10*3/uL (4.8-10.8)
[2023-06-16 07:32] LABS: Alanine Aminotransferase 17 U/L (0-31); Alkaline Phosphatase 60 U/L (39-117); Anion Gap 14 (12-20); Aspartate Amino Transferase 23 U/L (5-31); Bilirubin Total 0.6 mg/dL (0.0-1.0); Blood Urea Nitrogen 13 mg/dL (9-16); Calcium 8.3 mg/dL (8.4-10.2); Carbon Dioxide 31 mmol/L (22-29); Chloride 98 mmol/L (96-108); Creatinine Clr Calc Pharmacy 44.7; Estimated Glomerular Filt Rate > 60; Glucose Fasting 76 mg/dL (60-99); Potassium 3.8 mmol/L (3.3-5.1); Sodium 139 mmol/L (135-145); Total Protein 5.1 g/dL (6.5-8.0)
[2023-06-16 07:33] LABS: C Reactive Protein 3.43 mg/dL (< or = 0.50)
[2023-06-16 08:13] LABS: Procalcitonin 0.08 ng/mL
[2023-06-16] MEDS: Aspirin 81 MG TAB.CHEW PO (09:18)
[2023-06-16] MEDS: Atorvastatin Calcium 10 MG TABLET PO (09:18)
[2023-06-16] MEDS: Metoprolol Succinate ER 25 MG TAB.ER.24H PO (09:18)
[2023-06-16] MEDS: Anastrozole 1 MG TABLET PO (09:18)
[2023-06-16] MEDS: Zinc Sulfate 220 MG CAPSULE PO (09:18)
[2023-06-16] MEDS: Cholecalciferol (Vitamin D3) 25 MCG TABLET PO (09:18)
--- NOTE | 2023-06-16 12:24 | P.PNIM_ITS ---
Subjective Subjective Date of Service: 06/16/23 Interval History: fatigued poor appetite no fever or cough dyspnea improved Review of Systems Review of Systems: Yes all other systems are reviewed and are negative Physical Exam 2 Vital Signs: Vital Signs: Last Vital Signs Temp 98.1 F 06/16/23 11:53 Pulse 62 06/16/23 11:53 Resp 18 06/16/23 11:53 BP 116/60 06/16/23 11:53 Pulse Ox 96 06/16/23 11:53 O2 Del Method Nasal Cannula 06/16/23 11:53 O2 Flow Rate 2 06/16/23 11:53 BMI result Body Mass Index 16.5 Gen: in no acute distress HEENT: sclera anicteric, moist mucus membranes Neck: supple Lungs: somewhat diminished Heart: regular rate and rhythm, no murmurs Abd: soft, non-tender, non-distended Ext: no edema Skin: warm/well-perfused Neuro: alert and oriented x3, no focal findings Psych: appropriate affect Objective Data Active Medications Acetaminophen (Acetaminophen 325 Mg Tablet) 650 mg PO Q6H PRN PRN Reason: Pain, Mild (Pain Scale 1-3) Last Admin: 06/16/23 10:17 Dose: 650 mg Documented By: GARRETT Al Hydroxide/Mg Hydroxide (Magnesium Hydrox/Alum Hydrox 30 Ml Oral.Susp) 30 ml PO Q6H [facility] Last Admin: 06/16/23 09:20 Dose: Not Given Documented By: GARRETT Non-Admin Reason: Patient Refused Albuterol Sulfate (Albuterol Sulfate 90 Mcg 8 Gm Inhaler) 2 puff INHALE RQ4H PRN PRN Reason: Shortness of Breath/Wheezing Albuterol/Ipratropium (Albuterol/Iprat 2.5/0.5mg 3 Ml Ampul.Neb) 3 ml INHALE RQ4H WHILE AWAKE [facility] Last Admin: 06/16/23 11:32 Dose: Not Given Documented By: DEBBY Non-Admin Reason: Patient Refused Anastrozole (Anastrozole 1 Mg Tablet) 1 mg PO DAILY [facility] Last Admin: 06/16/23 09:18 Dose: 1 mg Documented By: GARRETT Aspirin (Aspirin 81 Mg Tab.Chew) 81 mg PO DAILY [facility] Last Admin: 06/16/23 09:18 Dose: 81 mg Documented By: GARRETT Atorvastatin Calcium (Atorvastatin Calcium 10 Mg Tablet) 10 mg PO DAILY [facility] Last Admin: 06/16/23 09:18 Dose: 10 mg Documented By: GARRETT Diphenhydramine HCl (Diphenhydramine Hcl 25 Mg Capsule) 25 mg PO BEDTIME [facility] Last Admin: 06/15/23 21:41 Dose: 25 mg Documented By: CHRISTIE Docusate Sodium (Docusate Sodium 100 Mg Capsule) 100 mg PO DAILY PRN PRN Reason: Constipation Last Admin: 06/12/23 20:35 Dose: 100 mg Documented By: GEORGE Guaifenesin (Guaifenesin 200 Mg/10 Ml 10 Ml Liquid) 10 ml PO Q4H PRN PRN Reason: cough Levothyroxine Sodium (Levothyroxine Sodium 88 Mcg Tablet) 88 mcg PO DAILY@0600 [facility] Last Admin: 06/16/23 06:16 Dose: 88 mcg Documented By: CHRISTIE Metoprolol Succinate (Metoprolol Succinate Er 25 Mg Tab.Er.24h) 25 mg PO DAILY [facility]; Protocol Last Admin: 06/16/23 09:18 Dose: 25 mg Documented By: GARRETT Omeprazole (Omeprazole 20 Mg Capsule.Dr) 20 mg PO BID@0630,1630 [facility] Last Admin: 06/16/23 06:16 Dose: 20 mg Documented By: CHRISTIE Ondansetron HCl (Ondansetron Hcl 4 Mg/2 Ml Vial) 4 mg IVPUSH Q8H PRN PRN Reason: Nausea and Vomiting Polyethylene Glycol (Polyethylene Glycol 3350 17 Gm Powd.Pack) 17 gm PO DAILY PRN PRN Reason: constipation Rivaroxaban (Rivaroxaban 15 Mg Tablet) 15 mg PO BEDTIME [facility] Last Admin: 06/15/23 21:42 Dose: 15 mg Documented By: CHRISTIE Senna/Docusate Sodium (Sennosides/Docusate Sodium Tablet) 2 tab PO BID PRN PRN Reason: Constipation Last Admin: 06/15/23 09:26 Dose: 2 tab Documented By: LYNNE Sodium Chloride (0.9 % Sodium Chloride Flush 3 Ml Syringe) 3 ml IVFLUSH QSHIFT [facility] Last Admin: 06/16/23 09:19 Dose: 3 ml Documented By: GARERTT Vitamin D (Cholecalciferol (Vitamin D3) 25 Mcg Tablet) 25 mcg PO DAILY [facility] Last Admin: 06/16/23 09:18 Dose: 25 mcg Documented By: GARRETT Zinc Sulfate (Zinc Sulfate 220 Mg Capsule) 220 mg PO DAILY [facility] Last Admin: 06/16/23 09:18 Dose: 220 mg Documented By: GARRETT Labs 06/16/23 06:45 06/16/23 06:45 Labs: Laboratory Results - last 24 hr 06/16/23 06:45 MCV 94.5 MCH 31.5 MCHC 33.3 RDW 14.1 Plt Count 201 MPV 9.3 L Immature Gran % (Auto) 0.5 H Neut % (Auto) 86.7 H Lymph % (Auto) 3.9 L [place] % (Auto) 5.6 Eos % (Auto) 3.2 Baso % (Auto) 0.1 Lymph # (Auto) 0.4 L [place] # (Auto) 0.6 Eos # (Auto) 0.4 Baso # (Auto) 0.0 Abs Immat Gran (auto) 0.05 H Absolute Neuts (auto) 9.4 H Absolute Nucleated RBC 0.000 Nucleated RBC % (auto) 0.0 Anion Gap 14 Estim Creat Clear Calc 44.7 Estimated GFR > 60 Fasting Glucose 76 Calcium 8.3 L Total Bilirubin 0.6 AST 23 ALT 17 Alkaline Phosphatase 60 C-Reactive Protein 3.43 H Total Protein 5.1 L Albumin 3.0 L Procalcitonin 0.08 Assessment and Plan (1) Bilateral pneumonia: Status: Acute Plan d8 88yo F with paroxysmal AF on rivaroxaban, breast CA s/p mastectomy on anastrozole, hx CHB s/p PPM, COPD, 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, quit in 2015) recent admission 06/02-06/05/23 for Covid-19 treated with steroids + remdesivir, also treated with levofloxacin for Pseudomonas UTI re-admitted 06/09/23 for hypoxia acute hypoxic respiratory failure due to pneumonia, Covid-19, and COPD exacerbation - wean O2 as tolerated; per current home O2 eval, requires 2L at all times - steroids d/c'ed due to abd pain; continue nebs- Rx nebulizer + solution for home - cefepime + vancomycin completed 06/09-06/16/23, BCx negative, pneumococcal UAg negative, Legionella UAg pending, PCT low, CRP increased by likely due to being off steroids - d/c'ed isolation precautions; 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 - GI consulted, PPI, Maalox 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 AF, consulted Heme-Onc, start ASA - TTE to r/o embolic source paroxsymal AF - RC with metoprolol succinate - AC with rivaroxaban chronic infected prosthesis - resume cefadroxil hypothyroidism - LT4 hx breast CA - anastrozole mild protein-calorie malnutrition - supplements VTE ppx - rivaroxaban dispo - anticipate home with VNA In my clinical judgment, the patient requires continued inpatient hospitalization for the following reasons: hypoxia, splenic infarct workup I update the pt's daughter Sandra at bedside Time Spent With Patient Time: Total time managing care of this patient today ___40_ minutes. Quality Stroke Does the patient have a stroke diagnosis?: No VTE Prior VTE?: No VTE Risk Level:: Medical - moderate - high VTE Device Contraindication: Treatment Not Indicated VTE Drug Contraindication: N/A - Med Ordered
[2023-06-16] MEDS: Lidocaine 4 % Patch ADH..PATCH 1 PATCH TRANSDERMA (13:12)
[2023-06-16] MEDS: cephALEXin 500 MG CAPSULE PO ×2 (13:12→19:48)
[2023-06-16] MEDS: Rivaroxaban 15 MG TABLET PO (19:48)
[2023-06-16] MEDS: diphenhydrAMINE HCL 25 MG CAPSULE PO (19:48)
[2023-06-16] MEDS: Magnesium Hydrox/Alum Hydrox 30 ML ORAL.SUSP PO (19:48)
[2023-06-17] VITALS (8 sets, daily range): BP systolic 111–165; BP diastolic 53–71; PULSE 60–67; RESP 18–20; TEMP 36.1–37; O2SAT 95–100
[2023-06-17] MEDS: Cyclobenzaprine HCl 5 MG TABLET PO ×2 (00:34→20:31)
[2023-06-17] MEDS: cephALEXin 500 MG CAPSULE PO ×4 (00:34→20:31)
[2023-06-17] MEDS: Acetaminophen 325 MG TABLET 650 MG PO ×2 (00:35→20:34)
[2023-06-17] MEDS: Omeprazole 20 MG CAPSULE.DR PO ×2 (06:29→16:33)
[2023-06-17] MEDS: Levothyroxine Sodium 88 MCG TABLET PO (06:29)
[2023-06-17] MEDS: Aspirin 81 MG TAB.CHEW PO (09:58)
[2023-06-17] MEDS: Metoprolol Succinate ER 25 MG TAB.ER.24H PO (09:58)
[2023-06-17] MEDS: Cholecalciferol (Vitamin D3) 25 MCG TABLET PO (09:58)
[2023-06-17] MEDS: Atorvastatin Calcium 10 MG TABLET PO (09:59)
[2023-06-17] MEDS: Lidocaine 4 % Patch ADH..PATCH 1 PATCH TRANSDERMA (09:59)
[2023-06-17] MEDS: Anastrozole 1 MG TABLET PO (09:59)
[2023-06-17] MEDS: Zinc Sulfate 220 MG CAPSULE PO (09:59)
--- NOTE | 2023-06-17 11:02 | HO.PM.IMPN ---
Subjective Subjective Date of Service: 06/17/23 Interval History: Feeling better, not short of breathing, abd discomfort improved Review of Systems Review of Systems: Yes all other systems are reviewed and are negative Physical Exam Vital Signs: Vital Signs: Last Vital Signs Temp 96.9 F 06/17/23 07:52 Pulse 61 06/17/23 07:52 Resp 18 06/17/23 07:52 BP 118/60 06/17/23 07:52 Pulse Ox 95 06/17/23 07:52 O2 Del Method Nasal Cannula 06/17/23 07:52 O2 Flow Rate 3 06/17/23 07:52 BMI result Body Mass Index 16.5 Gen: in no acute distress HEENT: sclera anicteric, moist mucus membranes Neck: supple Lungs: clear bilaterally Heart: regular rate and rhythm, no murmurs Abd: soft, non-tender, non-distended Ext: no edema Skin: warm/well-perfused Neuro: alert and oriented x3, no focal findings Psych: appropriate affect Objective Data Active Medications Acetaminophen (Acetaminophen 325 Mg Tablet) 650 mg PO Q6H PRN PRN Reason: Pain, Mild (Pain Scale 1-3) Last Admin: 06/17/23 00:35 Dose: 650 mg Documented By: CARIDAD Al Hydroxide/Mg Hydroxide (Magnesium Hydrox/Alum Hydrox 30 Ml Oral.Susp) 30 ml PO Q6H [facility] Last Admin: 06/17/23 10:04 Dose: Not Given Documented By: GARRETT Non-Admin Reason: Patient Refused Albuterol Sulfate (Albuterol Sulfate 90 Mcg 8 Gm Inhaler) 2 puff INHALE RQ4H PRN PRN Reason: Shortness of Breath/Wheezing Albuterol/Ipratropium (Albuterol/Iprat 2.5/0.5mg 3 Ml Ampul.Neb) 3 ml INHALE RQ4H WHILE AWAKE [facility] Last Admin: 06/17/23 10:55 Dose: Not Given Documented By: SOHA Non-Admin Reason: Patient Refused Anastrozole (Anastrozole 1 Mg Tablet) 1 mg PO DAILY [facility] Last Admin: 06/17/23 09:59 Dose: 1 mg Documented By: GARRETT Aspirin (Aspirin 81 Mg Tab.Chew) 81 mg PO DAILY [facility] Last Admin: 06/17/23 09:58 Dose: 81 mg Documented By: GARRETT Atorvastatin Calcium (Atorvastatin Calcium 10 Mg Tablet) 10 mg PO DAILY [facility] Last Admin: 06/17/23 09:59 Dose: 10 mg Documented By: GARRETT Cephalexin HCl (Cephalexin 500 Mg Capsule) 500 mg PO Q6H [facility] Last Admin: 06/17/23 06:29 Dose: 500 mg Documented By: CARIDAD Cyclobenzaprine HCl (Cyclobenzaprine Hcl 5 Mg Tablet) 5 mg PO BEDTIME PRN PRN Reason: pain in neck Last Admin: 06/17/23 00:34 Dose: 5 mg Documented By: CARIDAD Diphenhydramine HCl (Diphenhydramine Hcl 25 Mg Capsule) 25 mg PO BEDTIME [facility] Last Admin: 06/16/23 19:48 Dose: 25 mg Documented By: LUIS FERNANDO Docusate Sodium (Docusate Sodium 100 Mg Capsule) 100 mg PO DAILY PRN PRN Reason: Constipation Last Admin: 06/12/23 20:35 Dose: 100 mg Documented By: GEORGE Guaifenesin (Guaifenesin 200 Mg/10 Ml 10 Ml Liquid) 10 ml PO Q4H PRN PRN Reason: cough Levothyroxine Sodium (Levothyroxine Sodium 88 Mcg Tablet) 88 mcg PO DAILY@0600 [facility] Last Admin: 06/17/23 06:29 Dose: 88 mcg Documented By: CARIDAD Lidocaine (Lidocaine 4 % Patch Adh..Patch) 1 patch TRANSDERMA DAILY [facility]; Protocol Last Admin: 06/17/23 09:59 Dose: 1 patch Documented By: GARRETT Metoprolol Succinate (Metoprolol Succinate Er 25 Mg Tab.Er.24h) 25 mg PO DAILY [facility]; Protocol Last Admin: 06/17/23 09:58 Dose: 25 mg Documented By: GARRETT Omeprazole (Omeprazole 20 Mg Capsule.Dr) 20 mg PO BID@0630,1630 [facility] Last Admin: 06/17/23 06:29 Dose: 20 mg Documented By: CARIDAD Ondansetron HCl (Ondansetron Hcl 4 Mg/2 Ml Vial) 4 mg IVPUSH Q8H PRN PRN Reason: Nausea and Vomiting Polyethylene Glycol (Polyethylene Glycol 3350 17 Gm Powd.Pack) 17 gm PO DAILY PRN PRN Reason: constipation Rivaroxaban (Rivaroxaban 15 Mg Tablet) 15 mg PO BEDTIME [facility] Last Admin: 06/16/23 19:48 Dose: 15 mg Documented By: LUIS FERNANDO Senna/Docusate Sodium (Sennosides/Docusate Sodium Tablet) 2 tab PO BID PRN PRN Reason: Constipation Last Admin: 06/15/23 09:26 Dose: 2 tab Documented By: LYNNE Sodium Chloride (0.9 % Sodium Chloride Flush 3 Ml Syringe) 3 ml IVFLUSH QSHIFT [facility] Last Admin: 06/17/23 09:59 Dose: 3 ml Documented By: GARRETT Vitamin D (Cholecalciferol (Vitamin D3) 25 Mcg Tablet) 25 mcg PO DAILY [facility] Last Admin: 06/17/23 09:58 Dose: 25 mcg Documented By: GARRETT Zinc Sulfate (Zinc Sulfate 220 Mg Capsule) 220 mg PO DAILY [facility] Last Admin: 06/17/23 09:59 Dose: 220 mg Documented By: GARRETT Labs 06/16/23 06:45 06/16/23 06:45 Assessment and Plan (1) Bilateral pneumonia: Status: Acute Plan d9 88yo F with paroxysmal AF on rivaroxaban, breast CA s/p mastectomy on anastrozole, hx CHB s/p PPM, COPD, 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, quit in 2015) recent admission 06/02-06/05/23 for Covid-19 treated with steroids + remdesivir, also treated with levofloxacin for Pseudomonas UTI re-admitted 06/09/23 for hypoxia acute hypoxic respiratory failure due to pneumonia, Covid-19, and COPD exacerbation - wean O2 as tolerated; per current home O2 eval, requires 2L at all times; will need to repeat eval prior to d/c - steroids d/c'ed due to abd pain; continue nebs- Rx nebulizer + solution for home - cefepime + vancomycin completed 06/09-06/16/23, BCx negative, pneumococcal UAg negative, Legionella UAg pending, PCT low, CRP increased by likely due to being off steroids- will recheck in AM - d/c'ed isolation precautions; 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 - GI consulted, PPI, Maalox 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 AF, consulted Heme-Onc, start ASA - TTE to r/o embolic source tomorrow paroxsymal AF - RC with metoprolol succinate - AC with rivaroxaban chronic infected prosthesis - resume cefadroxil [cephalexin formulary equivalent] hypothyroidism - LT4 hx breast CA - anastrozole mild protein-calorie malnutrition - supplements VTE ppx - rivaroxaban dispo - anticipate home with VNA In my clinical judgment, the patient requires continued inpatient hospitalization for the following reasons: hypoxia, splenic infarct workup Time Spent With Patient Time: Total time managing care of this patient today _40___ minutes. Quality Stroke Does the patient have a stroke diagnosis?: No VTE Prior VTE?: No VTE Risk Level:: Medical - moderate - high VTE Device Contraindication: Treatment Not Indicated VTE Drug Contraindication: N/A - Med Ordered
[2023-06-17] MEDS: Albuterol/Iprat 2.5/0.5MG 3 ML AMPUL.NEB INHALE (20:27)
[2023-06-17] MEDS: diphenhydrAMINE HCL 25 MG CAPSULE PO (20:31)
[2023-06-17] MEDS: Rivaroxaban 15 MG TABLET PO (20:31)
[2023-06-18] VITALS (7 sets, daily range): BP systolic 102–120; BP diastolic 53–64; PULSE 60–95; RESP 16–20; TEMP 36.2–37.1; O2SAT 84–98
[2023-06-18] MEDS: cephALEXin 500 MG CAPSULE PO ×4 (00:30→20:38)
[2023-06-18 00:48] LABS: Legionella Ag Urine Not Detected (Not Detected)
[2023-06-18] MEDS: Omeprazole 20 MG CAPSULE.DR PO ×2 (06:15→16:57)
[2023-06-18] MEDS: Levothyroxine Sodium 88 MCG TABLET PO (06:15)
--- NOTE | 2023-06-18 07:00 | CA_ITS ---
Transthoracic Echocardiogram Patient (Last, First, Middle): Urszula Peter, Gender: Female Date of : 1935 Age: 88 Procedure Date: 06/18/2023 Procedure Type: Transthoracic Echocardiogram [place] [facility] [place]: 165.1 cm Weight: 44.91 kg BSA: 1.47 m2 Heart Rate: bpm BP: 106 / 64 mmHg [place] Supervisor: Referring MD: Dory Herr MD Symptoms: splenic infarct ?source Study Quality: Fair ECG Rhythm: Sinus Conclusions: - The left ventricular systolic function is hyperdynamic. The visually estimated ejection fraction is >70%. - Intraventricular and LVOT gradients noted during rest and valsalva. Peak resting LVOT gradient 96mmHg; with valsalva 120mmHg. - There is systolic anterior motion of the mitral valve. - There is a small circumferential pericardial effusion. Findings Left Ventricle Normal left ventricular cavity size. There is normal left ventricular wall thickness. The left ventricular systolic function is hyperdynamic. The visually estimated ejection fraction is >70%. There is systolic anterior motion of the mitral valve. Evidence suggests grade I (mild) diastolic dysfunction. Intraventricular and LVOT gradients noted during rest and valsalva. Peak resting LVOT gradient 96mmHg; with valsalva 120mmHg. Right Ventricle Normal right ventricular cavity size and systolic function. Atria Both atria are normal in size. Aortic Valve The aortic valve was not well visualized. There is no aortic valve stenosis. There is no aortic valve regurgitation. Mitral Valve The mitral valve appears normal. There is mild mitral valve regurgitation. There is no mitral valve stenosis. Pulmonic Valve The pulmonic valve is likely normal. Tricuspid Valve There is trace tricuspid valve regurgitation. There is no evidence of pulmonary hypertension. Great Vessels The asc aorta is normal in size. Venous The inferior vena cava is normal in size and collapses greater than 50% with inspiration. Pericardium/Pleural There is a small circumferential pericardial effusion. Prior Study Comparison No prior study available for comparison. Measurements 2D Linear Measurements IVSd: 0.95 0.6-0.9/0.6-1.0 cm LVIDd: 2.56 3.9-5.3/4.2-5.9 cm LVIDd Index: 1.74 2.4-3.2/2.2-3.1 cm/m2 LVIDs: 1.44 2.0-3.6 cm LVPWd: 0.92 0.7-1.1 cm Ao Root: 3.00 2.1-3.5 cm LA Diam: 2.40 2.7-3.8/3.0-4.0 cm LAIDs Index: 1.63 1.5-2.3 cm/m2 LV Mass: 72.91 67-162/88-224 g LV Mass Index: 49.60 43-95/49-115 g/m2 LVOT Diam: 2.00 3.0+(-)1.3 cm Mitral Valve MV VTI: 0.47 MV Pk Oli: 2.04 MV Mn Oli: 1.21 MV Pk Grad: 17.00 MV Mn Grad: 7.00 MV Pk E: 0.68 MV PK A: 1.30 MV Decel Time: 134.00 E/A: 0.50 E'Lateral: 4.13 E'Medial: 3.05 E/E' Med: 22.30 E/E' Lat: 16.50 PHT: 39.00 MVA PHT: 5.64 MVA Continuity: 2.20 Decel Riley: 5.10 Aortic Valve AoV Pk Oli: 2.41 AoV Mn Oli: 1.44 AoV VTI: 0.53 AoV Pk Grad: 23.00 Aov Mn Grad: 11.00 TOYA Cont.VTI: 1.95 LVOT LVOT Pk Oli: 1.70 LVOT Mn Oli: 1.22 LVOT VTI: 0.33 LVOT Pk Grad: 12.00 LVOT Mn Grad: 7.00 LVOT Diam: 2.00 LVOT Area: 3.14 Diastolic Function MV Pk E: 0.68 MV Pk A: 1.30 E/A: 0.50 E'Medial: 3.05 E/E' Med: 22.30 E' Laterial: 4.13 E/E' Lat: 16.50 Right Ventricle TAPSE (mm): 23.00 TVS' Oli: 14.00 Tricuspid Valve TR Pk Oli: 2.89 TR Pk Grad: 33.00 RA Press: 3.00 RVSP: 36.00 Great Vessels Aorta Ao Root-2D: 3.00 2.0-3.7 cm Ao Asc: 3.00 2.1-3.4 cm Pulmonary Valve PV Pk Oli: 1.37 Peak PV Grad: 8.00 Updated in Other Vendor System with Status of Final Leonel Kim MD electronically signed on 06/18/2023 5:21:43 PM with status of Final
[2023-06-18 08:07] LABS: Hematocrit 39.9 % (37.0-47.0); Hemoglobin 13.1 g/dl (12.0-16.0); Mean Corpuscular HGB Conc 32.8 g/dl (31.0-35.0); Mean Corpuscular Hemoglobin 31.1 pg (27.0-33.0); Mean Corpuscular Volume 94.8 fL (80.0-98.0); Platelet Count 209 X10*3/uL (160-400); Red Blood Count 4.21 X10*6/uL (4.20-5.50); Red Cell Distribution Width 13.6 % (11.0-16.0); White Blood Count 7.7 X10*3/uL (4.8-10.8)
[2023-06-18 08:58] LABS: C Reactive Protein 0.91 mg/dL (< or = 0.50)
[2023-06-18] MEDS: Cholecalciferol (Vitamin D3) 25 MCG TABLET PO (10:19)
[2023-06-18] MEDS: Zinc Sulfate 220 MG CAPSULE PO (10:19)
[2023-06-18] MEDS: Metoprolol Succinate ER 25 MG TAB.ER.24H PO (10:19)
[2023-06-18] MEDS: Atorvastatin Calcium 10 MG TABLET PO (10:19)
[2023-06-18] MEDS: Anastrozole 1 MG TABLET PO (10:20)
--- NOTE | 2023-06-18 11:46 | MHC.CM.PN ---
EMR reviewed and per MD rounds, pt will likely D/C today after echo and home O2 eval. This CM spoke with pts daughter Sandra to discuss her concerns about her mothers discharge. Respiratory therapy will speak with Sandra about the home O2. CM will continue to follow and assist with D/C needs.
--- NOTE | 2023-06-18 12:03 | P.F2F_ITS ---
Service Date Service Date: 06/18/23 Encounter Date of encounter: 06/18/23 Reasons for Services Signs and symptoms assessed: dyspnea hypoxia Reason for physical therapy: home safety and mobility, therapeutic exercises, gait/transfer training, assess need for DME, ADL training and energy conservation Reason for occupational therapy: home safety and mobility, therapeutic exercises, gait/transfer training, assess need for DME, ADL training and energy conservation Overseeing Care: Dinh Mcconnell Homebound: Leaving the home is medically contraindicated at this time without the asist of a device and/or another person due th the listed conditions above and below. Reason homebound: shortness of breath with minimal effort and weakness related to hospital stay Certification: Based on the above findings, I certify that this patient is confined to the home and needs intermittent senior living care, physical therapy and/or speech therapy, or continues to need occupational therapy. The patient is under my ca re, and I have initiated the establishment of the plan of care. The patient will be followed by a physician who will periodically review the plan of care. Time Spent With Patient Time: Total time managing care of this patient today ____ minutes.
--- NOTE | 2023-06-18 12:07 | PM.DS ---
DS: Providers Provider Date of Service: 06/18/23 Date of admission: 06/09/23 16:32 Date of discharge: 06/18/23 Primary care physician: Dinh Mcconnell MD Consults: 06/14/23 16:02 Consult to Gastroenterology Routine Consulting Provider: [facility] Gastroenterology Services Reason for consultation: globus sensation - dysphagia 06/15/23 14:48 Consult to Hematology / Oncology Routine Consulting Provider: 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 (6) Esophagitis: Status: Acute (7) Acute hypoxemic respiratory failure: Status: Acute (8) Mild protein malnutrition: Status: Acute DS: Summary Hospital Course Hospital Course: From admission H+P by hospitalist KIRSTIN Galeano, 06/09/23: 88-year-old female with history of paroxysmal atrial fibrillation anticoagulated with Xarelto, breast cancer s/p mastectomy on anastrozole, 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 She was recently admitted from 06/02-06/05 for COPD exacerbation and COVID-19 with acute hypoxemic respiratory failure treated with IV steroids and remdesivir and discharged on 3 days of prednisone and levaquin which she took as prescribed. She states she completed prednisone 3 days ago and shortly after developed worsening symptoms. Per her daughter, Sandra, who assists with history, pt has remained afebrile but appears to have worsening chest congestion and is unable to expectorate. She was found to be hypoxic in the 80s on arrival and was placed on 2 L supplemental O2 with symptomatic improvement. Her daughter questions whether she needs a home O2 evaluation. She is not on any maintenance medications for her COPD and does not have an albuterol inhaler. She is also reporting pleuritic chest pain and abdominal pain with deep inspiration and cough. On arrival, vitals otherwise stable except for the previously noted hypoxia. There is no leukocytosis. Renal function and electrolyte levels are normal. Troponin 17.8. COVID-19 remains positive. Negative for influenza and RSV. Chest x-ray is negative for any acute cardiopulmonary abnormality. CTA chest negative for any PE with emphysematous disease with superimposed nonspecific bilateral lower lobar airspace disease and calcified sub 5 mm lung nodule in right upper lobe with trace pericardial effusion. There is also incidentally seen soft tissue stranding around the spleen as well as asymmetric soft tissue prominence along the inferior medial aspect of the right-sided breast implant. Ms Peter is an 88yo F with paroxysmal AF on rivaroxaban, breast CA s/p mastectomy on anastrozole, hx CHB s/p PPM, COPD, and 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, quit in 2016) who was recently admitted to [facility] 06/02-06/05/23 for Covid-19 treated with steroids + remdesivir. She had also been treated with levofloxacin for Pseudomonas UTI. She presented with worsening dyspnea and cough and was re-admitted 06/09/23 for hypoxia due to pneumonia, Covid-19, and COPD. Hospital course by problem: acute hypoxic respiratory failure due to pneumonia, Covid-19, and COPD exacerbation - Home O2 evaluation on 06/18/23 shows that she requires 3L O2 only with ambulation. This will be set up. - Initially treated with pulse-dose steroids, but these were discontinued due to abdominal pain. - She was treated with nebulized bronchodilators and will be prescribed a nebulizer with solution for home use. - She completed 7 days of IV cefepime + vancomycin. Blood cultures and urinary antigens for Legionella and pneumococcus were negative. - Isolation precautions were disconitnued, as the pt 1st tested positive 05/31/23. presbyesophagus esophagitis - Due to complaint of globus sensation, she underwent a barium swallow. This showed mucosal irregularity of the esophagus suggestive of esophagitis. and abbnormal esophageal peristalsis with tertiary contractions. She was placed on PPI and prn Maalox. splenic infarct - CTA of the lungs on admission showed nonspecific soft tissue stranding around the spleen at left upper quadrant. A dedicated CT A/P showed wedge-shaped peripheral low attenuation in the inferior spleen suggestive of an infarct, with mild fat stranding seen surrounding the inferior spleen. She is already on rivaroxaban for AF. Hematology was consulted and advised starting ASA. TTE to rule out embolic source showed . She was discharged home with O2, nebulizer, and VNA services. Time Spent with Patient Time attestation: Total time managing care of this patient today _45___ minutes. Discharge coordination time: Greater than 30 minutes Quality: Safe Use of Opioids Does Pt have an Active Cancer Diagnosis on the Problem List?: No Quality: Stroke Does the patient have a stroke diagnosis?: No Physical Exam Vital Signs: Vital Signs: Last Vital Signs Temp 97.9 F 06/18/23 11:19 Pulse 63 06/18/23 11:19 Resp 20 06/18/23 11:19 BP 102/55 L 06/18/23 11:19 Pulse Ox 97 06/18/23 11:19 O2 Del Method Nasal Cannula 06/18/23 11:19 O2 Flow Rate 3 06/18/23 11:19 BMI result Body Mass Index 16.5 Gen: in no acute distress HEENT: sclera anicteric, moist mucus membranes Neck: supple Lungs: clear to auscultation bilaterally Heart: regular rate and rhythm, no murmurs Abd: soft, non-tender, non-distended Ext: no edema Skin: warm/well-perfused Neuro: alert and oriented x3, no focal findings Psych: appropriate affect DS: Data Data Completed and Pending Completed studies during hospitalization [Text1]: Laboratory Results WBC 7.7 X10*3/uL (4.8-10.8) 06/18/23 07:45 RBC 4.21 X10*6/uL (4.20-5.50) 06/18/23 07:45 Hgb 13.1 g/dl (12.0-16.0) 06/18/23 07:45 Hct 39.9 % (37.0-47.0) 06/18/23 07:45 MCV 94.8 fL (80.0-98.0) 06/18/23 07:45 MCH 31.1 pg (27.0-33.0) 06/18/23 07:45 MCHC 32.8 g/dl (31.0-35.0) 06/18/23 07:45 RDW 13.6 % (11.0-16.0) 06/18/23 07:45 Plt Count 209 X10*3/uL (160-400) 06/18/23 07:45 MPV 10.0 fL (9.4-12.3) 06/18/23 07:45 Immature Gran % (Auto) 0.5 % (0.0-0.4) H 06/16/23 06:45 Neut % (Auto) 86.7 % (45-73) H 06/16/23 06:45 Lymph % (Auto) 3.9 % (20-40) L 06/16/23 06:45 [place] % (Auto) 5.6 % (2-11) 06/16/23 06:45 Eos % (Auto) 3.2 % (0-4) 06/16/23 06:45 Baso % (Auto) 0.1 % (0-2) 06/16/23 06:45 Lymph # (Auto) 0.4 X10*3/uL (1.2-4.9) L 06/16/23 06:45 [place] # (Auto) 0.6 X10*3/uL (0.1-1.2) 06/16/23 06:45 Eos # (Auto) 0.4 X10*3/uL (0.0-0.4) 06/16/23 06:45 Baso # (Auto) 0.0 X10*3/uL (0.0-0.2) 06/16/23 06:45 Abs Immat Gran (auto) 0.05 X10*3/uL (0.00-0.03) H 06/16/23 06:45 Absolute Neuts (auto) 9.4 x10*3/uL (2.0-8.3) H 06/16/23 06:45 Absolute Nucleated RBC 0.000 X10*3/uL (0.0-0.012) 06/18/23 07:45 Nucleated RBC % (auto) 0.0 /100WBC (0.0-0.2) 06/18/23 07:45 Smear Tech's Comments VERIFIED 06/14/23 07:05 Hold Purple Top SEE NOTE 06/13/23 08:06 Sodium 139 mmol/L (135-145) 06/16/23 06:45 Potassium 3.8 mmol/L (3.3-5.1) 06/16/23 06:45 Chloride 98 mmol/L (96-108) 06/16/23 06:45 Carbon Dioxide 31 mmol/L (22-29) H 06/16/23 06:45 Anion Gap 14 (12-20) 06/16/23 06:45 BUN 13 mg/dL (9-16) 06/16/23 06:45 Creatinine 0.63 mg/dL (0.5-1.4) 06/16/23 06:45 Estim Creat Clear Calc 44.7 06/16/23 06:45 Estimated GFR > 60 06/16/23 06:45 Random Glucose 129 mg/dL (60-115) H 06/13/23 07:35 Fasting Glucose 76 mg/dL (60-99) 06/16/23 06:45 Calcium 8.3 mg/dL (8.4-10.2) L 06/16/23 06:45 Magnesium 1.9 mg/dL (1.6-2.6) 06/09/23 11:57 Total Bilirubin 0.6 mg/dL (0.0-1.0) 06/16/23 06:45 AST 23 U/L (5-31) 06/16/23 06:45 ALT 17 U/L (0-31) 06/16/23 06:45 Alkaline Phosphatase 60 U/L (39-117) 06/16/23 06:45 Troponin I High Sens 31.4 ng/L (<3.5-17.0) H D 06/12/23 10:45 C-Reactive Protein 0.91 mg/dL (< or = 0.50) H 06/18/23 07:45 Total Protein 5.1 g/dL (6.5-8.0) L 06/16/23 06:45 Albumin 3.0 g/dL (3.5-5.0) L 06/16/23 06:45 Lipase 21 U/L (8-78) 06/15/23 06:29 Procalcitonin 0.08 ng/mL 06/16/23 06:45 Urine Color Yellow 06/09/23 13:32 Urine Appearance Clear 06/09/23 13:32 Urine pH 7.0 (5.0-9.0) 06/09/23 13:32 Ur Specific [place] 1.015 (1.005-1.025) 06/09/23 13:32 Urine Protein Negative mg/dL (Neg-Trace) 06/09/23 13:32 Urine Glucose (UA) Negative mg/dL (Negative) 06/09/23 13:32 Urine Ketones Trace mg/dL (Negative) 06/09/23 13:32 Urine Blood Negative (Negative) 06/09/23 13:32 Urine Nitrite Negative (Negative) 06/09/23 13:32 Ur Leukocyte Esterase Small (1+) (Negative) H 06/09/23 13:32 Urine RBC 0-2 /HPF (0-2) 06/09/23 13:32 Urine WBC 0-5 /HPF (0-5) 06/09/23 13:32 Ur Squamous Epith Cells 0-2 /HPF (0-2) 06/09/23 13:32 Urine Bacteria None Seen (None Seen) 06/09/23 13:32 Hyaline Casts 0-2 /LPF (0-2) 06/09/23 13:32 Random Vancomycin 13.7 mcg/mL (15-20) L 06/14/23 15:34 Influenza Type A (PCR) NEGATIVE (Negative) 06/09/23 11:57 Influenza Type B (PCR) NEGATIVE (Negative) 06/09/23 11:57 Ur L.pneumophila Ag Cancelled 06/09/23 18:25 Ur L.pneumophila Ag Not Detected (Not Detected) 06/09/23 18:25 RSV RNA Qual (PCR) NEGATIVE (Negative) 06/09/23 11:57 SARS-CoV-2 RNA (RT-PCR) POSITIVE (Negative) A 06/09/23 11:57 Ur Strep pneumoniae Ag Not Detected (Not Detected) 06/09/23 18:25 Impressions Chest X-Ray 06/09/23 11:48 IMPRESSION: Clear lungs. Chest CTA 06/09/23 13:39 IMPRESSION: 1. No CT evidence of pulmonary thromboembolism. 2. Emphysematous disease is noted with superimposed nonspecific bilateral lower lobar airspace disease and calcified as well as noncalcified sub-5 mm lung nodule within the right upper lobe. 3. Trace pericardial effusion. 4. Nonspecific soft tissue stranding around the spleen at left upper quadrant, but indeterminate etiology. Please correlate clinically. Dedicated follow-up CT scan of the abdomen and pelvis following administration of intravenous contrast may be considered for further clarification, if clinically appropriate. 5. Asymmetric soft tissue prominence along the inferior medial aspect of the right-sided breast implant, for which clinical and mammographic correlation as appropriate is recommended. VTE: Negative. Abdomen/Pelvis CT 06/15/23 08:11 IMPRESSION: Splenic infarcts. Mild fat stranding surrounding the inferior spleen similar to recent chest CTA. Atherosclerotic disease. Fleischner guidelines were followed. Upper GI/Barium Swallow X-Ray 06/15/23 08:35 IMPRESSION: Limited exam due to patient mobility. New mucosal irregularity of the esophagus suggestive of esophagitis. Abnormal esophageal peristalsis with tertiary contractions. Temporary stasis of the barium tablet at the GE junction. Assessment for reflux limited as described above but no reflux is seen. Stomach and duodenum are normal-appearing. TTE 06/18/23 The left ventricular systolic function is hyperdynamic. The visually estimated ejection fraction is >70%. Intraventricular and LVOT gradients noted during rest and valsalva. Peak resting LVOT gradient 96mmHg; with valsalva 120mm Hg. There is systolic anterior motion of the mitral valve. There is a small circumferential pericardial effusion. Discharge Plan Discharge Anticipated Discharge Date/Time: 06/18/23 16:00 Patient Disposition: Home Health Service Discharge Diagnosis: acute hypoxic respiratory failure due to pneumonia, Covid-19, and COPD exacerbation presbyesophagus esophagitis splenic infarct protein-calorie malnutrition Referrals: [facility] [Outside] - 1 Week Jess Byrd MD [Physician] - 2 Weeks Dinh Mcconnell MD [Primary Care Provider] - 1 Week Discharge Medications: New ipratropium-albuterol 0.5 mg-3 mg(2.5 mg base)/3 mL Solution For Nebulization 3 ml inhalation RQ4H WHILE AWAKE PRN (Reason: shortness of breath or wheezing) Qty: 90 0RF albuterol sulfate [Ventolin HFA] 90 mcg/actuation Hfa Aerosol Inhaler 2 puff inhalation RQ4H PRN (Reason: Shortness Of Breath/Wheezing) Qty: 8.5 0RF omeprazole 20 mg Capsule,Delayed Release(Dr/Ec) 20 mg PO BID@0630,1630 Qty: 60 0RF aspirin 81 mg Tablet,Chewable 81 mg PO DAILY Qty: 30 0RF MAG-AL 200-200 mg/5 mL Suspension 30 ml PO Q6H PRN (Reason: Abdominal Discomfort) Qty: 480 0RF Continued anastrozole 1 mg tablet 1 mg PO DAILY atorvastatin 10 mg tablet 10 mg PO DAILY cefadroxil 500 mg capsule 500 mg PO BID levothyroxine 88 mcg tablet 88 mcg PO DAILY@0600 metoprolol succinate 25 mg tablet extended release 24 hr 25 mg PO DAILY Xarelto 15 mg tablet 15 mg PO BEDTIME acetaminophen 650 mg Tablet Extended Release 1,300 mg PO BEDTIME diphenhydramine HCl [Benadryl] 25 mg Capsule 25 mg PO BEDTIME zinc gluconate 50 mg Tablet 50 mg PO DAILY cholecalciferol (vitamin D3) [Vitamin D3] 25 mcg (1,000 unit) Tablet 25 mcg PO DAILY Discontinued levofloxacin 500 mg tablet 500 mg PO DAILY Qty: 5 0RF Discharge Orders: Discharge Order (Routine); Ordered 06/18/23 Ordered By: Dory Herr Diet: soft/bland diet as tolera Activity on Discharge: As tolerated Stand Alone Forms: Patient Portal Discharge page Care Plan Goals: recovery from pneumonia and Covid Health Concerns: acute hypoxic respiratory failure due to pneumonia, Covid-19, and COPD exacerbation presbyesophagus esophagitis splenic infarct protein-calorie malnutrition Plan of Treatment: acute hypoxic respiratory failure due to pneumonia, Covid-19, and COPD exacerbation - completed 7 days of IV antibiotics - steroids discontinued - oxygen: 3L with ambulation - use nebulized ipratropium-albuterol as needed for shortness of breath or wheezing presbyesophagus esophagitis - use omeprazole 20 mg bid, Maalox 30 mL every 6 hours as needed - consider GI follow-up: [facility] Gastroenterology [Dr Jess Byrd] splenic infarct - take aspirin 81 mg daily protein-calorie malnutrition - take Ensure or Boost 1 can twice daily; increase protein intake Please follow up with your primary care doctor within 1 week. Return to the hospital if you experience recurrent or worsening symptoms or oxygen saturation drops to less than 90% Follow up with your usual utilization review coordinator as well. Echocardiogram done 06/18/23. Assessment: See Discharge Summary.
--- NOTE | 2023-06-18 13:41 | MHC.CLN ---
F/U PO INTAKE VARIABLE DIET RX: BLAND CHOPPED-APPROPRIATE PT RECEIVING FORTIFIED ICE CREAM TID WITH MEALS TO INCREASE KCALS ICE CREAM PROVIDES 810KCALS, 27G PROTEIN WITH 100% ACCEPTANCE CONTINUE TO MONITOR PO INTAKE AND WEIGHT CLOSELY
[2023-06-18] MEDS: Albuterol/Iprat 2.5/0.5MG 3 ML AMPUL.NEB INHALE (15:43)
[2023-06-18] MEDS: Rivaroxaban 15 MG TABLET PO (20:38)
[2023-06-18] MEDS: diphenhydrAMINE HCL 25 MG CAPSULE PO (20:38)
[2023-06-19] VITALS: BP 109/60; PULSE 62; RESP 19; TEMP 36.6; O2SAT 96
[2023-06-19] MEDS: cephALEXin 500 MG CAPSULE PO ×2 (00:22→05:41)
[2023-06-19 03:22] VITALS: BP 97/56; PULSE 61; RESP 18; TEMP 36.9; O2SAT 95
[2023-06-19] MEDS: Levothyroxine Sodium 88 MCG TABLET PO (05:41)
[2023-06-19] MEDS: Omeprazole 20 MG CAPSULE.DR PO (05:41)
[2023-06-19 07:44] VITALS: BP 113/58; PULSE 62; RESP 20; TEMP 36.4; O2SAT 95
[2023-06-19] MEDS: Cholecalciferol (Vitamin D3) 25 MCG TABLET PO (08:29)
[2023-06-19] MEDS: Atorvastatin Calcium 10 MG TABLET PO (08:29)
[2023-06-19] MEDS: Aspirin 81 MG TAB.CHEW PO (08:29)
[2023-06-19] MEDS: Zinc Sulfate 220 MG CAPSULE PO (08:29)
[2023-06-19] MEDS: Anastrozole 1 MG TABLET PO (08:29)
[2023-06-19] MEDS: Metoprolol Succinate ER 25 MG TAB.ER.24H PO (08:29)
[2023-06-19] MEDS: Albuterol/Iprat 2.5/0.5MG 3 ML AMPUL.NEB INHALE (09:06)
--- NOTE | 2023-06-19 10:40 | MHC.CM.PN ---
Pt is medically cleared for D/C home with new [facility]. Pts daughter to transport her home.
== END 2023-06-19 09:46 | disposition home health service (06) | DRG 177 ==
LOC: HO.ED 15:36 → HO.EDOVER 16:47 → HO.IMC 18:14
PROVIDERS: Hospitalist; Internal Medicine Gastroenterology; Physician Assistant Medical; Admitting Provider Physician Assistant; Emergency Provider Emergency Medicine Emergency Medical Services; PCP Internal Medicine; Visit Provider Family Medicine
DX: U07.1 COVID-19 (principal); J12.82 Pneumonia due to coronavirus disease 2019; J96.01 Acute respiratory failure with hypoxia; J44.0 Chronic obstructive pulmonary disease with (acute) lower respiratory infection; J44.1 Chronic obstructive pulmonary disease with (acute) exacerbation; R64 Cachexia; Z68.1 Body mass index [BMI] 19.9 or less, adult; E44.1 Mild protein-calorie malnutrition; I44.2 Atrioventricular block, complete; I48.0 Paroxysmal atrial fibrillation; K20.90 Esophagitis, unspecified without bleeding; K22.89 Other specified disease of esophagus; C50.919 Malignant neoplasm of unspecified site of unspecified female breast; E03.9 Hypothyroidism, unspecified; D73.5 Infarction of spleen; Z66 Do not resuscitate; Z95.0 Presence of cardiac pacemaker; Z87.891 Personal history of nicotine dependence; Z23 Encounter for immunization; Z79.01 Long term (current) use of anticoagulants; Z79.82 Long term (current) use of aspirin; Z79.811 Long term (current) use of aromatase inhibitors; Z79.890 Hormone replacement therapy; Z79.899 Other long term (current) drug therapy
CPT/HCPCS: 0241U; 36415; 71046; 71275; 74177; 74246; 80048; 80053; 80202; 81001; 82565; 83690; 83735; 84145; 84484; 85025; 85027; 86140; 87040; 87070; 87086; 87205; 87449; 87899; 90686; 92526; 92610; 93005; 93306; 94640; 97116; 97161; 99285; J0692; J2930; J3370; J3371; J8540; Q9967

== ENCOUNTER 2023-06-09 16:32 | Outpatient (BNV) | payer MEDICARE, BC, SELFPAY | END 2023-06-18 07:00 | PROVIDERS: Admitting Provider Physician Assistant; Emergency Provider Emergency Medicine Emergency Medical Services; PCP Internal Medicine; Visit Provider Internal Medicine | DX: I34.0 Nonrheumatic mitral (valve) insufficiency (principal) | CPT/HCPCS: 93306 ==

== ENCOUNTER 2023-06-09 16:32 | Outpatient (BNV) | payer MEDICARE, BC, SELFPAY | END 2023-06-15 08:00 | PROVIDERS: Admitting Provider Physician Assistant; Emergency Provider Emergency Medicine Emergency Medical Services; PCP Internal Medicine; Visit Provider Radiology Diagnostic Radiology | DX: R10.10 Upper abdominal pain, unspecified (principal) | CPT/HCPCS: 74246 ==

== ENCOUNTER → 2023-06-09 16:32 | Outpatient (BNV) | payer MEDICARE, BC, SELFPAY | PROVIDERS: Admitting Provider Physician Assistant; Emergency Provider Emergency Medicine Emergency Medical Services; PCP Internal Medicine; Visit Provider Internal Medicine Gastroenterology | DX: R13.12 Dysphagia, oropharyngeal phase (principal); R10.10 Upper abdominal pain, unspecified | CPT/HCPCS: 99233 ==

== ENCOUNTER → 2023-06-09 16:32 | Outpatient (BNV) | payer MEDICARE, BC, SELFPAY | PROVIDERS: Admitting Provider Physician Assistant; Emergency Provider Emergency Medicine Emergency Medical Services; PCP Internal Medicine; Visit Provider Physician Assistant | DX: U07.1 COVID-19 (principal); J96.01 Acute respiratory failure with hypoxia; E44.1 Mild protein-calorie malnutrition; J18.9 Pneumonia, unspecified organism; R13.12 Dysphagia, oropharyngeal phase; D73.5 Infarction of spleen; K22.89 Other specified disease of esophagus; K20.90 Esophagitis, unspecified without bleeding | CPT/HCPCS: 99223; 99232; 99233; 99239; G0180 ==

== ENCOUNTER 2023-06-23 18:04 | Emergency (ER) | payer MEDICARE, BC, SELFPAY ==
--- NOTE | ~2023-06-23 | CT_ITS ---
EXAMINATION: CT HEAD WITHOUT CONTRAST CLINICAL INFORMATION: Headaches. Anticoagulated. COMPARISON: None. TECHNIQUE: Multidetector volumetric imaging of the head was performed without intravenous contrast material. This CT examination was performed using dose optimization techniques as appropriate, variously including the following: *Automated exposure control *Adjustment of mA and/or kV according to patient size (this includes techniques or standardized protocols for targeted exams where dose is matched to indication/reason for exam; i.e. extremities or head) *Use of iterative reconstruction technique Dose: 588 mGy-cm FINDINGS: There is no evidence of acute intracranial hemorrhage or territorial infarction. No abnormal mass-effect or midline shift is seen. Alegre to white matter differentiation is well preserved. No extra axial fluid collections. There is commensurate enlargement of the ventricles and extraaxial CSF spaces consistent with mild volume loss. A few foci of hypoattenuation in the subcortical and periventricular white matter are most consistent with chronic microangiopathic changes. Small left thalamic lacunar infarct. Calcific atherosclerosis is present within the cavernous segments of the internal carotid arteries. Status post lens extractions. Partial left mastoid effusion. Right mastoid air cells are clear. Minimal fluid layering dependently within the sphenoid sinus. Paranasal sinuses are otherwise clear. No acute osseous findings. CT/CT head/brain wo IV con IMPRESSION: 1. No acute intracranial pathology. 2. Partial left mastoid effusion.
[2023-06-23 18:14] VITALS: BP 130/65; PULSE 63; RESP 18; TEMP 36.3; O2SAT 94; BMI 17.2
--- NOTE | 2023-06-23 18:18 | ED.GENADULT ---
HPI - General Adult General Chief complaint: Headache Stated complaint: headache Time Seen by Provider: 06/23/23 22:24 Related Data Home Medications Medication Instructions Recorded Confirmed anastrozole 1 mg tablet 1 mg PO DAILY 06/02/23 06/09/23 atorvastatin 10 mg tablet 10 mg PO DAILY 06/02/23 06/09/23 cefadroxil 500 mg capsule 500 mg PO BID 06/02/23 06/09/23 levothyroxine 88 mcg tablet 88 mcg PO DAILY@0600 06/02/23 06/09/23 metoprolol succinate 25 mg 25 mg PO DAILY 06/02/23 06/09/23 tablet,extended release 24 hr rivaroxaban 15 mg tablet (Xarelto) 15 mg PO BEDTIME 06/02/23 06/09/23 acetaminophen 650 mg 1,300 mg PO BEDTIME 06/09/23 06/09/23 tablet,extended release cholecalciferol (vitamin D3) 25 25 mcg PO DAILY 06/09/23 06/09/23 mcg (1,000 unit) tablet (Vitamin D3) diphenhydramine HCl 25 mg capsule 25 mg PO BEDTIME 06/09/23 06/09/23 (Benadryl) zinc gluconate 50 mg tablet 50 mg PO DAILY 06/09/23 06/09/23 Previous Rx's Medication Instructions Recorded albuterol sulfate 90 mcg/actuation 2 puff inhalation RQ4H PRN 06/15/23 aerosol inhaler (Ventolin HFA) Shortness Of Breath/Wheezing #8.5 grams ipratropium 0.5 mg-albuterol 3 mg 3 ml inhalation RQ4H WHILE AWAKE 06/15/23 (2.5 mg base)/3 mL nebulization PRN shortness of breath or soln wheezing #90 mL omeprazole 20 mg capsule,delayed 20 mg PO BID@0630,1630 #60 caps 06/15/23 release aluminum-magnesium hydroxide 200 30 ml PO Q6H PRN Abdominal 06/18/23 mg-200 mg/5 mL oral suspension Discomfort #480 mL (MAG-AL) aspirin 81 mg chewable tablet 81 mg PO DAILY #30 tabs 06/18/23 diazepam 2 mg tablet 2 mg PO BEDTIME PRN muscle spasm 06/23/23 #2 tabs Allergies Allergy/AdvReac Type Severity Reaction Status Date / Time codeine AdvReac Unknown Verified 06/23/23 18:21 [facility] Past Medical History Medical History Mild protein malnutrition Breast cancer COPD (chronic obstructive pulmonary disease) Paroxysmal atrial fibrillation Artificial cardiac pacemaker Complete heart block Surgical History S/P mastectomy S/P cardiac pacemaker procedure Social History Social History Household Members: None Housing: Condominium Do you presently have visiting nurse or other home services: No Patient Tobacco Use Status: Former Tobacco user Tobacco use type: Cigarette Smoked in Last 30 Days: No e-Cigarette/Vaping Use: Former Use Use of substances other than those prescribed or required for medical reasons: No Advance Directives: Yes Advance Directives on File: Yes Advance Directives Date on File: 06/09/23 service: No Physical Exam ED Vital Signs: Vital Signs - 24 hr 06/23/23 18:14 06/23/23 22:18 Temperature 97.4 F Pulse Rate 63 64 Respiratory Rate 18 18 Blood Pressure 130/65 141/52 H Pulse Oximetry 94 92 Oxygen Delivery Method Room Air Room Air BMI result Body Mass Index 17.2 Course Course Course Narrative: This is a rapid medical exam: Additional HPI, ROS, PE not included below will be deferred to primary provider. Patient is an 88-year-old female with history of COPD, paroxysmal afib on Xarelto, breast CA s/p mastectomy on anastrozole, hx of complete heart block with pacemaker presenting to the ED with her daughter complaining of posterior headaches since being discharged after admission for symptoms related to Covid. Daughter states that patient had headache while inpatient, and was given lidocaine patches and muscle relaxers and headache improved. She was discharged on 06/18. Patient denies any changes in vision, denies any nausea or vomiting. States the pain is interfering with her sleep. Daughter reports patient took Tylenol for arthritis once without relief. Plan: CT head Medications Administered Discontinued Medications Generic Name Dose Route Start Last Admin Trade Name Freq PRN Reason Stop Dose Admin Diazepam 2 mg 06/23/23 22:33 06/23/23 22:48 Diazepam 2 Mg Tablet PO 06/23/23 22:34 2 mg ONCE ONE Administration Discharge Plan Discharge Clinical Impression: Neck muscle spasm Patient Disposition: Home, Self-Care Instructions: Spasmodic Torticollis (ED), Muscle Spasm (ED) Additional Instructions: make sure that you take your prescribed medication for muscle spasms only at bedtime once you are already in bed to prevent falls. Please follow-up with your primary care physician tomorrow. If you have any worsening or new symptoms, please return to the emergency room or call 911 Prescriptions: New diazepam 2 mg tablet 2 mg PO BEDTIME PRN (Reason: muscle spasm) Qty: 2 0RF No Action anastrozole 1 mg tablet 1 mg PO DAILY atorvastatin 10 mg tablet 10 mg PO DAILY cefadroxil 500 mg capsule 500 mg PO BID levothyroxine 88 mcg tablet 88 mcg PO DAILY@0600 metoprolol succinate 25 mg tablet extended release 24 hr 25 mg PO DAILY Xarelto 15 mg tablet 15 mg PO BEDTIME acetaminophen 650 mg Tablet Extended Release 1,300 mg PO BEDTIME diphenhydramine HCl [Benadryl] 25 mg Capsule 25 mg PO BEDTIME zinc gluconate 50 mg Tablet 50 mg PO DAILY cholecalciferol (vitamin D3) [Vitamin D3] 25 mcg (1,000 unit) Tablet 25 mcg PO DAILY ipratropium-albuterol 0.5 mg-3 mg(2.5 mg base)/3 mL Solution For Nebulization 3 ml inhalation RQ4H WHILE AWAKE PRN (Reason: shortness of breath or wheezing) Qty: 90 0RF albuterol sulfate [Ventolin HFA] 90 mcg/actuation Hfa Aerosol Inhaler 2 puff inhalation RQ4H PRN (Reason: Shortness Of Breath/Wheezing) Qty: 8.5 0RF omeprazole 20 mg Capsule,Delayed Release(Dr/Ec) 20 mg PO BID@0630,1630 Qty: 60 0RF aspirin 81 mg Tablet,Chewable 81 mg PO DAILY Qty: 30 0RF MAG-AL 200-200 mg/5 mL Suspension 30 ml PO Q6H PRN (Reason: Abdominal Discomfort) Qty: 480 0RF Interventions: ED Discharge Assessment Last Done: 06/23/23 23:14 Discharge Date/Time: 06/23/23 23:15
--- NOTE | 2023-06-23 21:53 | PC.NURSE ---
Pts daughter approaching the desk, upset that pt has not been seen yet. Daughter stating that pt is in pain and needs to be seen. This RN speaking to providers regarding plan of care.
[2023-06-23 22:18] VITALS: BP 141/52; PULSE 64; RESP 18; O2SAT 92
--- NOTE | 2023-06-23 22:34 | ED.HA ---
HPI - Headache General Chief Complaint: Headache Stated Complaint: headache Time Seen by Provider: 06/23/23 22:24 Source: patient and family Mode of arrival: ambulatory Limitations: no limitations History of Present Illness HPI Narrative: patient comes to the emergency room accompanied by her daughter. Patient was discharged From this hospital 5 days ago. Patient states that since she got home, patient has been having posterior neck pain only on the left side, radiating towards the lateral side of the neck and shoulder and upper back on the left. Patient states he feels like throbbing, patient states that sometimes when it starts hurting, she can feel a lump like structures in her neck and upper back. patient states that she has a bit of a headache, denies any other neurological symptoms Related Data Home Medications Medication Instructions Recorded Confirmed anastrozole 1 mg tablet 1 mg PO DAILY 06/02/23 06/09/23 atorvastatin 10 mg tablet 10 mg PO DAILY 06/02/23 06/09/23 cefadroxil 500 mg capsule 500 mg PO BID 06/02/23 06/09/23 levothyroxine 88 mcg tablet 88 mcg PO DAILY@0600 06/02/23 06/09/23 metoprolol succinate 25 mg 25 mg PO DAILY 06/02/23 06/09/23 tablet,extended release 24 hr rivaroxaban 15 mg tablet (Xarelto) 15 mg PO BEDTIME 06/02/23 06/09/23 acetaminophen 650 mg 1,300 mg PO BEDTIME 06/09/23 06/09/23 tablet,extended release cholecalciferol (vitamin D3) 25 25 mcg PO DAILY 06/09/23 06/09/23 mcg (1,000 unit) tablet (Vitamin D3) diphenhydramine HCl 25 mg capsule 25 mg PO BEDTIME 06/09/23 06/09/23 (Benadryl) zinc gluconate 50 mg tablet 50 mg PO DAILY 06/09/23 06/09/23 Previous Rx's Medication Instructions Recorded albuterol sulfate 90 mcg/actuation 2 puff inhalation RQ4H PRN 06/15/23 aerosol inhaler (Ventolin HFA) Shortness Of Breath/Wheezing #8.5 grams ipratropium 0.5 mg-albuterol 3 mg 3 ml inhalation RQ4H WHILE AWAKE 06/15/23 (2.5 mg base)/3 mL nebulization PRN shortness of breath or soln wheezing #90 mL omeprazole 20 mg capsule,delayed 20 mg PO BID@0630,1630 #60 caps 06/15/23 release aluminum-magnesium hydroxide 200 30 ml PO Q6H PRN Abdominal 06/18/23 mg-200 mg/5 mL oral suspension Discomfort #480 mL (MAG-AL) aspirin 81 mg chewable tablet 81 mg PO DAILY #30 tabs 06/18/23 diazepam 2 mg tablet 2 mg PO BEDTIME PRN muscle spasm 06/23/23 #2 tabs Allergies Allergy/AdvReac Type Severity Reaction Status Date / Time codeine AdvReac Unknown Verified 06/23/23 18:21 Review of Systems Review of Systems: Constitutional : No Weight loss, No Fever, No Chills, No Night Sweats, No Fatigue, No Malaise ENT/Mouth : No Hearing loss, No Ear Pain, No Nasal Congestion, No Sinus Pain, No Hoarseness, No sore throat, No Rhinorrhea, No Swallowing Difficulty Eyes: No Eye Pain, No Swelling, No Redness, No Foreign Body, No Discharge, No Vision Changes Cardiovascular : No Chest Pain, No SOB, No Dyspnea on Exertion, No Orthopnea, No Edema, No Palpitations Respiratory : No Cough, No Sputum, No Wheezing, No Smoke Exposure, No Dyspnea Gastrointestinal : No Nausea, No Vomiting, No Diarrhea, No Constipation, No abdominal Pain, No Hematochezia, No Melena Genitourinary : no irregular bleeding, No Dysuria, No Urinary Frequency, No Hematuria, No Urinary Incontinence, No Urgency, No Flank Pain, No Urinary Flow Changes, No Hesitancy Musculoskeletal : complaining of spasms on the left side of the neck posteriorly radiating towards the upper back on the left and lateral aspect of the neck and the left Skin : No Skin Lesions, No rash Neuro : No Weakness, No Numbness, No Paresthesias, No Loss of Consciousness, No Dizziness, No Headache Psych : No Anxiety/Panic, No Depression, No SI/HI/AH/VH, No Social Issues, Heme/Lymph: No Bruising, No Bleeding,No Lymphadenopathy Endocrine : No Polyuria, No Polydipsia, No Temperature Intolerance PMFSH Past Medical History Medical History Mild protein malnutrition Breast cancer COPD (chronic obstructive pulmonary disease) Paroxysmal atrial fibrillation Artificial cardiac pacemaker Complete heart block Surgical History S/P mastectomy S/P cardiac pacemaker procedure Social History Social History Household Members: None Housing: Condominium Do you presently have visiting nurse or other home services: No Patient Tobacco Use Status: Former Tobacco user Tobacco use type: Cigarette Smoked in Last 30 Days: No e-Cigarette/Vaping Use: Former Use Use of substances other than those prescribed or required for medical reasons: No Advance Directives: Yes Advance Directives on File: Yes Advance Directives Date on File: 06/09/23 service: No Physical Exam Vital Signs: Vital Signs: Last Vital Signs Temp 97.4 F 06/23/23 18:14 Pulse 64 06/23/23 22:18 Resp 18 06/23/23 22:18 BP 141/52 H 06/23/23 22:18 Pulse Ox 92 06/23/23 22:18 O2 Del Method Room Air 06/23/23 22:18 BMI result Body Mass Index 17.2 Const: Other: Appearance: Alert. Oriented X3. No acute distress. Eyes: Pupils equal, round and reactive to light. ENT: Pharynx normal. Neck: palpation to the right side of the neck and C-spine within normal limits, no palpable step-offs, normal flexion and extension. Patient has trouble rotating the head towards the left. Palpable spasms to the left side of the neck and also left upper back CVS: Normal heart rate and rhythm. Pulses normal. Normal S1 and S2 Respiratory: No respiratory distress. Breath sounds normal. No Wheezing. No rales Abdomen: Soft and nontender. No rigidity. No distention. Skin: Skin warm and dry. Normal skin color. Normal skin turgor. Extremities: No lower extremity edema. No Lacerations. No Rash Neuro: Oriented X 3. No motor deficit. No sensory deficit. Moving all extremities. No slurred speech. CN 2 through 12 grossly intact Psych: calm, cooperative, normal affect Medical Decision Making Medical Decision Making MDM Narrative: - interpretation of CT scan of the head: No intracranial bleed. - I discussed the physical exam with the patient and her daughter, patient likely is having muscle spasms versus torticollis - patient was given p.o. diazepam. patient lives with her daughter who takes care of her. Discussed with the patient's daughter to put the patient in bed right when they get home to prevent any falls. - CT scan report, there is a partial left mastoid effusion. Patient has no mastoid bone tenderness, no ear pain. Differential Diagnosis Differential Diagnoses: The differential diagnosis associated with the presentation includes ( As above) Admission/Observation Consideration of admission/observation: Escalation of care including admission/observation considered ( given the patient's presentation on arrival, admission was considered) Independent Interpretation I performed an independent interpretation of an: CT Scan Radiology Impression Discussion of test interpretation with radiology: I have reviewed the radiologist's reading. Radiologist Impression: FINDINGS: There is no evidence of acute intracranial hemorrhage or territorial infarction. No abnormal mass-effect or midline shift is seen. Alegre to white matter differentiation is well preserved. No extra axial fluid collections. There is commensurate enlargement of the ventricles and extraaxial CSF spaces consistent with mild volume loss. A few foci of hypoattenuation in the subcortical and periventricular white matter are most consistent with chronic microangiopathic changes. Small left thalamic lacunar infarct. Calcific atherosclerosis is present within the cavernous segments of the internal carotid arteries. Status post lens extractions. Partial left mastoid effusion. Right mastoid air cells are clear. Minimal fluid layering dependently within the sphenoid sinus. Paranasal sinuses are otherwise clear. No acute osseous findings. CT/CT head/brain wo IV con IMPRESSION: 1. No acute intracranial pathology. 2. Partial left mastoid effusion. Discharge Plan Discharge Clinical Impression: Neck muscle spasm Patient Disposition: Home, Self-Care Instructions: Spasmodic Torticollis (ED), Muscle Spasm (ED) Additional Instructions: make sure that you take your prescribed medication for muscle spasms only at bedtime once you are already in bed to prevent falls. Please follow-up with your primary care physician tomorrow. If you have any worsening or new symptoms, please return to the emergency room or call 911 Prescriptions: New diazepam 2 mg tablet 2 mg PO BEDTIME PRN (Reason: muscle spasm) Qty: 2 0RF No Action anastrozole 1 mg tablet 1 mg PO DAILY atorvastatin 10 mg tablet 10 mg PO DAILY cefadroxil 500 mg capsule 500 mg PO BID levothyroxine 88 mcg tablet 88 mcg PO DAILY@0600 metoprolol succinate 25 mg tablet extended release 24 hr 25 mg PO DAILY Xarelto 15 mg tablet 15 mg PO BEDTIME acetaminophen 650 mg Tablet Extended Release 1,300 mg PO BEDTIME diphenhydramine HCl [Benadryl] 25 mg Capsule 25 mg PO BEDTIME zinc gluconate 50 mg Tablet 50 mg PO DAILY cholecalciferol (vitamin D3) [Vitamin D3] 25 mcg (1,000 unit) Tablet 25 mcg PO DAILY ipratropium-albuterol 0.5 mg-3 mg(2.5 mg base)/3 mL Solution For Nebulization 3 ml inhalation RQ4H WHILE AWAKE PRN (Reason: shortness of breath or wheezing) Qty: 90 0RF albuterol sulfate [Ventolin HFA] 90 mcg/actuation Hfa Aerosol Inhaler 2 puff inhalation RQ4H PRN (Reason: Shortness Of Breath/Wheezing) Qty: 8.5 0RF omeprazole 20 mg Capsule,Delayed Release(Dr/Ec) 20 mg PO BID@0630,1630 Qty: 60 0RF aspirin 81 mg Tablet,Chewable 81 mg PO DAILY Qty: 30 0RF MAG-AL 200-200 mg/5 mL Suspension 30 ml PO Q6H PRN (Reason: Abdominal Discomfort) Qty: 480 0RF
[2023-06-23] MEDS: diazePAM 2 MG TABLET PO (22:48)
== END 2023-06-23 23:15 | disposition home or self-care (01) ==
PROVIDERS: Emergency Provider Emergency Medicine
DX: M62.838 Other muscle spasm (principal); R51.9 Headache, unspecified; I48.0 Paroxysmal atrial fibrillation; Z87.891 Personal history of nicotine dependence; Z79.01 Long term (current) use of anticoagulants; Z79.899 Other long term (current) drug therapy
CPT/HCPCS: 70450; 99284

== ENCOUNTER 2023-07-05 11:19 | Outpatient (REF) | payer MEDICARE, BC, SELFPAY ==
[2023-07-05 12:42] LABS: Thyroid Stimulating Hormone 17.28 uIU/mL (0.32-4.0)
== END 2023-07-05 11:20 | disposition home or self-care (01) ==
LOC: HO.HVNA 11:19
PROVIDERS: Visit Provider Internal Medicine
DX: E03.9 Hypothyroidism, unspecified (principal)
CPT/HCPCS: 36415; 84443

== ENCOUNTER 2023-09-06 12:04 | Emergency (ER) | payer MEDICARE, BC, SELFPAY ==
[2023-09-06 12:45] VITALS: BP 103/30; PULSE 80; O2SAT 97
== END 2023-09-06 13:20 | disposition left against medical advice (07) ==
PROVIDERS: Emergency Provider Emergency Medicine
DX: R04.0 Epistaxis (principal); Z79.01 Long term (current) use of anticoagulants; Z53.21 Procedure and treatment not carried out due to patient leaving prior to being seen by health care provider